=== PATIENT | male | born 1940 | race Caucasian/White ===

== ENCOUNTER → 2018-09-15 | Outpatient (CLI) | payer MEDICARE, BC ==
--- NOTE | 2018-09-15 13:34 | ECHOF ---
Referral Reason:I10 primary hypertension MEASUREMENTS -------- HEIGHT: 171.4 cm WEIGHT: 103.4 kg BP: 149/72 RVIDd: 2.9 cm (< 3.3) IVSd: 1.4 cm (0.6 - 1.1) LVIDd: 4.2 cm (3.9 - 5.3) LVPWd: 1.3 cm (0.6 - 1.1) IVSs: 1.6 cm LVIDs: 2.9 cm LVPWs: 1.6 cm LA Diam: 3.5 cm (2.7 - 3.8) LAESV Index (A-L): 20.41 ml/m Ao Diam: 3.2 cm (2.0 - 3.7) AV Cusp: 1.7 cm (1.5 - 2.6) MV EXCURSION: 15.271 mm (> 18.000) MV EF SLOPE: 65 mm/s (70 - 150) EPSS: 0.9 cm MV E Robin: 1.08 m/s MV DecT: 269 ms MV A Robin: 1.20 m/s MV E/A Ratio: 0.90 RAP: 5.00 mmHg RVSP: 29.84 mmHg FINDINGS -------- Sinus rhythm. This was a technically difficult study with suboptimal views. The left ventricular size is normal. There is moderate concentric left ventricular hypertrophy. O verall left ventricular systolic function is normal with, an EF between 55 - 60 %. The right ventricle is normal in size. Normal LA size by volume 22+/-6 ml/m2. The right atrium is normal in size. 3 ml of Lumason was utilized for enhancement of images. There is mild aortic valve sclerosis. Mild mitral annular calcification present. The tricuspid valve appears structurally normal. The pulmonic valve was not well visualized. The aortic root size is normal. Normal inferior vena cava with normal inspiratory collapse consistent with estimated right atrial pre ssure of 5 mmHg. There is no pericardial effusion. CONCLUSIONS -------- 1. Sinus rhythm. 2. This was a technically difficult study with suboptimal views. 3. The left ventricular size is normal. 4. There is moderate concentric left ventricular hypertrophy. 5. Overall left ventricular systolic function is normal with, an EF between 55 - 60 %. 6. The right ventricle is normal in size. 7. Normal LA size by volume 22+/-6 ml/m2. 8. The right atrium is normal in size. 9. 3 ml of Lumason was utilized for enhancement of images. 10. There is mild aortic valve sclerosis. 11. Mild mitral annular calcification present. 12. The tricuspid valve appears structurally normal. 13. The pulmonic valve was not well visualized. 14. The aortic root size is normal. 15. Normal inferior vena cava with normal inspiratory collapse consistent with estimated right atrial pressure of 5 mmHg. 16. There is no pericardial effusion. PEOPLE GREETER: Regina Telles RDCS
== END | disposition home or self-care (01) ==
LOC: RADECHMAIN 11:35
PROVIDERS: ATTEND Family Medicine
DX: I08.0 Rheumatic disorders of both mitral and aortic valves (principal); I10 Essential (primary) hypertension
CPT/HCPCS: C8929; Q9950; 93306

== ENCOUNTER → 2018-11-30 | Outpatient (CLI) | payer MEDICARE, BC ==
[2018-11-30 16:01] LABS: African American GFR (CKD) 74.1 (60.0-200.0); Albumin 4.2 g/dL (3.80-4.90); Albumin/Globulin Ratio 1.83 (1.60-3.17); Anion Gap 6.8 mmol/L (4.00-12.00); BUN/Creat Ratio 18.18 Ratio (12.00-20.00); Calcium 9.7 mg/dL (8.7-10.3); Carbon Dioxide 28.2 mmol/L (21.6-31.8); Globulin 2.3 g/dL (1.6-3.3); LDL Cholesterol,Calculated 123.6 mg/dL (0.0-131.0); Potassium 5.2 mmol/L (3.5-5.5); Total Bilirubin 0.9 mg/dL (0.3-1.2); Total Protein 6.5 g/dL (6.2-8.2); VLDL Calculation 24.4 mg/dL (5.00-40.00)
== END ==
LOC: LABWHC1 08:59
PROVIDERS: ATTEND Internal Medicine Interventional Cardiology
DX: E78.2 Mixed hyperlipidemia (principal)
CPT/HCPCS: 36415; 80053; 80061

== ENCOUNTER → 2019-02-15 | Outpatient (CLI) | payer MEDICARE, BC ==
[2019-02-15 17:04] LABS: Chol/HDL Ratio 3.21; LDL Cholesterol,Calculated 79.8 mg/dL (0.0-131.0); VLDL Calculation 24.2 mg/dL (5.00-40.00)
== END | disposition home or self-care (01) ==
LOC: LABWHC1 10:00
PROVIDERS: ATTEND Internal Medicine Interventional Cardiology
DX: E78.2 Mixed hyperlipidemia (principal)
CPT/HCPCS: 36415; 80061; 82550; 84450; 84460

== ENCOUNTER 2019-10-12 15:51 | Emergency (ER) | payer BC, MEDICARE ==
[2019-10-12 16:03] VITALS: PULSE 69; RESP 18; TEMP 98.6
--- NOTE | 2019-10-12 16:20 | ED ---
General Adult HPI - General Chief complaint: Recheck/Abnormal Lab/Rx Stated complaint: fever/lethargic/back pain Time Seen by Provider: 10/12/19 16:09 Source: patient Mode of arrival: ambulatory Limitations: no limitations - History of Present Illness Initial comments: Dictation was produced using [employer] dictation software. please excuse any gramma tical, word or spelling errors. This patient was cared for during a federal and state declared state of emergency secondary to Covid 19 Chief Complaint: 79-year-old male with past medical history of hypertension presents with generalized malaise History of Present Illness: 79-year-old male he called the primary care physician's office. B he was told that they aren't able to see him today. 3 weeks ago patient traveled via car back from [place]. Patient states he's been feeling rather weak. Cold days ago patient was pulling a bruits from a small tree when he hurt his back. He felt the pain the next day. Patient denies any history of abdominal aortic aneurysm. He has no urinary symptoms. No numbness and no paresthesias to the sacral area of the legs. Patient has been able to without complications. Patient states he does have some pain that feels like it's worse when he moves. Denies any constitutional symptoms however he checked essentially a sinus found to be 99. It was suggested to the patient that he come to the emergency department for coronal virus testing. As a chest pain shortness of breath. No cough. The ROS documented in this emergency department record has been reviewed and confirmed by me. Those systems with pertinent positive or negative responses have been documented in the HPI. All other systems are other negative and/or noncontributory. PHYSICAL EXAM: General Impression: Alert and oriented x3, not in acute distress HEENT: Normocephalic atraumatic, extra-ocular movements intact, pupils equal and reactive to light bilaterally, mucous membranes moist. Cardiovascular: Heart regular rate and rhythm Chest: Able to complete full sentences, no retractions, no tachypnea Abdomen: abdomen soft, non-tender, non-distended, no organomegaly, no palpable abdominal mass Musculoskeletal: Pulses present and equal in all extremities, no peripheral edema, mild tenderness to palpation over the left lower back Motor: no focal deficits noted Neurological: CN II-XII grossly intact, no focal motor or sensory deficits noted Skin: Intact with no visualized rashes Psych: Normal affect and mood ED course: 79-year-old male presents with acute lower back strain and generalized weakness. He is well-appearing at bedside. Patient and motor witho ut complications. Patient does not have any pulsatile abdominal mass. Upon arrival are within acceptable limits. Patient had recent travel to [place] were there has been increased number of coronavirus cases. Patient be tested. He understands that results are not available until 24-48 hours. Laboratory evaluation obtained. CBC, metabolic panel is unremarkable. C- reactive protein slightly elevated at 15.8. Patient given Lidoderm patch for lower back strain. Coronavirus test was ordered. Pending result. Patient reevaluated at bedside and found to be in stable medical condition. Patient will be discharged. He is told that his results should be complete and 24-48 hours. At that time he should receive a call. He does not receive a call his advised to call the emergency department for more information. - Related Data Allergies Allergy/AdvReac Type Severity Reaction Status Date / Time No Known Allergies Allergy Verified 10/12/19 16:02 Review of Systems ROS Statement: Those systems with pertinent positive or pertinent negative responses have been documented in the HPI. ROS Other: All systems not noted in ROS Statement are negative. Past Medical History Past Medical History: Hypertension Past Surgical History: No Surgical Hx Reported Past Psychological History: No Psychological Hx Reported Smoking Status: Never smoker Past Alcohol Use History: Occasional Past Drug Use History: None Reported General Exam Limitations: no limitations Course Vital Signs 10/12/19 15:59 Temperature 98.6 F Pulse Rate 69 Respiratory 18 Rate Blood Pressure 158/76 O2 Sat by Pulse 97 Oximetry Medical Decision Making - Lab Data Result diagrams: 10/12/19 16:34 10/12/19 16:34 Lab Results 10/12/19 10/12/19 Range/Units 16:34 16:34 WBC 8.6 (3.8-10.6) k/uL RBC 5.42 (4.30-5.90) m/uL Hgb 15.7 (13.0-17.5) gm/dL Hct 48.1 (39.0-53.0) % MCV 88.8 (80.0-100.0) fL MCH 29.0 (25.0-35.0) pg MCHC 32.7 (31.0-37.0) g/dL RDW 12.8 (11.5-15.5) % Plt Count 194 (150-450) k/uL Neutrophils % 66 % Lymphocytes % 20 % Monocytes % 9 % Eosinophils % 3 % Basophils % 0 % Neutrophils # 5.7 (1.3-7.7) k/uL Lymphocytes # 1.7 (1.0-4.8) k/uL Monocytes # 0.8 (0-1.0) k/uL Eosinophils # 0.2 (0-0.7) k/uL Basophils # 0.0 (0-0.2) k/uL Sodium 135 L (137-145) mmol/L Potassium 4.5 (3.5-5.1) mmol/L Chloride 101 (98-107) mmol/L Carbon Dioxide 26 (22-30) mmol/L Anion Gap 8 mmol/L BUN 17 (9-20) mg/dL Creatinine 1.02 (0.66-1.25) mg/dL Est GFR (CKD-EPI)AfAm 81 (>60 ml/min/1.73 sqM) Est GFR (CKD-EPI)NonAf 70 (>60 ml/min/1.73 sqM) Glucose 88 (74-99) mg/dL Calcium 9.8 (8.4-10.2) mg/dL Magnesium 1.9 (1.6-2.3) mg/dL C-Reactive Protein 15.8 H (<10.0) mg/L Disposition Clinical Impression: Fatigue Disposition: HOME SELF-CARE Condition: Good Instructions (If sedation given, give patient instructions): Fatigue (ED) Additional Instructions: Results for coronavirus that should be available in 24-48 hours. You should receive a call to be notified of the result however if you do not receive a call please call the emergency department for more information. Is patient prescribed a controlled substance at d/c from ED?: No Referrals: Fermin Pedro MD [Primary Care Provider] - 1-2 days Time of Disposition: 18:01
[2019-10-12 16:56] LABS: Basophils % (A) 0 %; Eosinophils # (A) 0.2 k/uL (0-0.7); Eosinophils % (A) 3 %; HCT 48.1 % (39.0-53.0); HGB 15.7 gm/dL (13.0-17.5); Lymphocytes # (A) 1.7 k/uL (1.0-4.8); Lymphocytes % (A) 20 %; MCHC 32.7 g/dL (31.0-37.0); MCV 88.8 fL (80.0-100.0); Mean Platelet Volume 7.9; Monocytes # (A) 0.8 k/uL (0-1.0); Monocytes % (A) 9 %; Neutrophils # (A) 5.7 k/uL (1.3-7.7); Neutrophils % (A) 66 %; Platelet Count 194 k/uL (150-450); RBC 5.42 m/uL (4.30-5.90); RDW 12.8 % (11.5-15.5); WBC 8.6 k/uL (3.8-10.6)
[2019-10-12 17:00] LABS: C Reactive Protein 15.8 mg/L (<10.0); Calcium 9.8 mg/dL (8.4-10.2); Magnesium 1.9 mg/dL (1.6-2.3)
[2019-10-12 17:04] LABS: Potassium 4.5 mmol/L (3.5-5.1)
[2019-10-12] MEDS ORDERED: LIDOCAINE 5% PATCH TOPICAL STA (17:43)
[2019-10-12 18:11] VITALS: BP 144/77
== END 2019-10-12 18:10 | disposition home or self-care (01) ==
LOC: EC 15:51
DX: R53.83 Other fatigue (principal); S39.012A Strain of muscle, fascia and tendon of lower back, initial encounter; R79.82 Elevated C-reactive protein (CRP); R53.1 Weakness; I10 Essential (primary) hypertension; R07.9 Chest pain, unspecified; R53.81 Other malaise; R06.02 Shortness of breath; Z20.828 Contact with and (suspected) exposure to other viral communicable diseases; X50.0XXA Overexertion from strenuous movement or load, initial encounter; Y93.89 Activity, other specified
CPT/HCPCS: 36415; 80048; 83735; 85025; 86140; 99284; U0003

== ENCOUNTER → 2021-04-27 | Outpatient (CLI) | payer MEDICARE ==
[2021-04-27 15:47] LABS: Chol/HDL Ratio 2.86 Ratio; LDL Cholesterol,Calculated 92.8 mg/dL (0.0-131.0)
[2021-04-27 15:55] LABS: ALT 26 U/L (10-49); AST 30 U/L (14-35); African American GFR (CKD) 56.7 (60.0-200.0); Albumin 4.5 g/dL (3.8-4.9); Albumin/Globulin Ratio 1.52 (1.60-3.17); Alkaline Phosphatase 97 U/L (41-126); BUN/Creat Ratio 23.26 Ratio (12.00-20.00); Blood Urea Nitrogen 31.4 mg/dL (9.0-27.0); Calcium 10.4 mg/dL (8.7-10.3); Carbon Dioxide 25.7 mmol/L (20.0-27.5); Chloride 98 mmol/L (96-109); Glucose 118 mg/dL (70-110); Non-African American GFR(CKD) 48.9 (60.0-200.0); Sodium 138 mmol/L (135-145); Total Protein 7.4 g/dL (6.2-8.2)
== END | disposition home or self-care (01) ==
LOC: LABWHC1 09:49
PROVIDERS: ATTEND Internal Medicine Interventional Cardiology
DX: E78.2 Mixed hyperlipidemia (principal); R60.0 Localized edema
CPT/HCPCS: 36415; 80053; 80061; 83880

== ENCOUNTER 2021-11-11 15:09 | Inpatient (IN) | payer MEDICARE ==
[2021-11-11] MEDS ORDERED: SODIUM CHLORIDE 0.9% 1,000 ML IV STA ×3 (16:04→18:52)
[2021-11-11] MEDS ORDERED: ONDANSETRON 4 MG/2 ML VIAL IVP STA ×2 (16:04→20:59)
--- NOTE | 2021-11-11 16:19 | ED ---
Weakness HPI - General Chief complaint: Weakness Stated complaint: Weakness,SOB,Dizzy Time Seen by Provider: 11/11/21 15:17 Source: patient, EMS Mode of arrival: EMS Limitations: no limitations - History of Present Illness Initial comments: This 81-year-old male presents with a complaint of weakness. He also has had a cough as well as some nausea and vomiting. He states that over the last day he has had multiple episodes of nausea and vomiting. He's been unable to hold down much fluid and no food for the last week. He states that he gets weak and dizzy when he sits up, stands up or walks. He has occasional shortness of breath as well but denies chest pain. Patient denies any definite fever but said that he felt somewhat hot earlier today. He does have a somewhat moderately complicated recent past medical history. He apparently went through chemotherapy for bladder cancer 6 months ago and has not been completely back to normal since. He developed some right leg swelling over the past several months and was diagnosed with a large right leg DVT and pulmonary embolisms. He is on Eliquis for blood thinners currently. He then developed COVID-19 approximately 2 weeks ago and he was hospitalized in the hospital in [place]. He was discharged one week ago. He denies any current chest pain. Upon walking in the room he went from lying to sitting position and got very dizzy and almost passed out. No other complaints or modifying factors. He denies any urinary symptoms. - Related Data Home Medications Medication Instructions Recorded Confirmed Apixaban [Eliquis] 5 mg PO BID 11/11/21 11/11/21 Atorvastatin Calcium [Lipitor] 40 mg PO DAILY 11/11/21 11/11/21 Dutasteride 0.5 mg PO DAILY 11/11/21 11/11/21 Finasteride [Proscar] 5 mg PO DAILY 11/11/21 11/11/21 Glucosam/Yoav-Msm1/C/Alan/Bosw 1 tab PO DAILY 11/11/21 11/11/21 [Glucosamine-Chondroitin Tablet] Ibuprofen [Motrin] 800 mg PO Q8H PRN 11/11/21 11/11/21 Olopatadine HCl [Pataday Once 1 drop BOTH EYES BID 11/11/21 11/11/21 Daily Relief] Ondansetron [Zofran] 4 mg PO TID PRN 11/11/21 11/11/21 Sildenafil Citrate 100 mg PO DAILY PRN 11/11/21 11/11/21 Tamsulosin [Flomax] 0.4 mg PO DAILY 11/11/21 11/11/21 Testosterone Cypionate 200 mg IM Q30D 11/11/21 11/11/21 [Depo-Testosterone] hydroCHLOROthiazide [Hydrodiuril] 12.5 mg PO DAILY 11/11/21 11/11/21 lisinopriL [Zestril] 2.5 mg PO DAILY 11/11/21 11/11/21 Allergies Allergy/AdvReac Type Severity Reaction Status Date / Time No Known Allergies Allergy Verified 11/11/21 18:06 Review of Systems ROS Statement: Those systems with pertinent positive or pertinent negative responses have been documented in the HPI. ROS Other: All systems not noted in ROS Statement are negative. Past Medical History Past Medical History: Cancer, Hypertension Additional Past Medical History / Comment(s): kidney stones, tonsillectomy, bladder cancer Past Surgical History: No Surgical Hx Reported Past Psychological History: No Psychological Hx Reported Smoking Status: Former smoker Past Alcohol Use History: Rare Past Drug Use History: None Reported General Exam - General Exam Comments Initial Comments: GENERAL: The patient is well nourished and mildly dehydrated. VITAL SIGNS: Heart rate, blood pressure, respiratory rate reviewed as recorded in nurse's notes. EYES: Pupils are round and reactive. Extraocular movements are intact. No conjunctival / lid redness or swelling. ENT: No external evidence of injury, swelling, or ecchymosis. Airway is patent. Throat is clear. Mucous membranes are dry. NECK: Nontender. No swelling or evidence of injury. No subcutaneous emphysema. Trachea is midline. No thyroid mass. HEART: Regular rate and rhythm. Good peripheral pulses. LUNGS/CHEST: Breath sounds clear and equal bilaterally. No rales, rhonchi, or wheezes. No ecchymosis, subcutaneous emphysema, or tenderness. ABDOMEN: Abdomen soft without tenderness. No palpable masses or organomegaly. No peritoneal signs. No abdominal wall swelling or ecchymosis. EXTREMITIES: No extremity tenderness. Normal muscle tone and function. No thoracolumbar tenderness. There is significant right leg/calf swelling which apparently is improved as compared to previous per patient and . NEUROLOGIC: Sensation is grossly intact. Cranial nerve exam reveals face is symmetrical, tongue is midline, speech is clear. SKIN: No abrasions or ecchymosis is noted. No induration or masses noted. PSYCHIATRIC: Alert and oriented. Appropriate behavior and judgment. Limitations: no limitations Course Vital Signs 11/11/21 11/11/21 11/11/21 15:16 16:00 16:30 Temperature 97.4 F L Pulse Rate 126 H 112 H 114 H Respiratory 20 18 Rate Blood Pressure 108/57 96/60 97/54 O2 Sat by Pulse 96 94 L 95 Oximetry 11/11/21 11/11/21 11/11/21 17:00 17:30 18:00 Temperature Pulse Rate 110 H 105 H 112 H Respiratory Rate Blood Pressure 88/53 99/57 94/48 O2 Sat by Pulse 94 L 96 96 Oximetry 11/11/21 11/11/21 18:30 19:00 Temperature 97.6 F Pulse Rate 103 H 106 H Respiratory 20 Rate Blood Pressure 77/55 125/71 O2 Sat by Pulse 96 99 Oximetry Medical Decision Making - Medical Decision Making The patient was seen and examined. All diagnostics are reviewed. He is placed on a panel monitor and some mild regular tachycardia is noted. The EKG shows a sinus tachycardia at a rate of 109. There is no acute ST-T wave changes identified. The [place] intervals 134, QRS duration is 84, and the QTc interval is 375. An IV is started and he is hydrated. He had the spell in the room when I first walked in 1 and he went from lying to sitting. He got very dizzy and almost passed out. His eyes apparently rolled back into his head and he is very weak. His was holding him up. He was laid back down to the bed and se emed to recover quite well. His blood pressure was 96 systolic directly after this event. He is given Zofran 4 mg IV. There is later given additional fluids. His blood pressure is much improved on multiple rechecks. The patient later complains of additional nausea and is given additional 4 mg of Zofran. Laboratory shows white blood cell count elevated, mild anemia, mild hyponatremia, elevated troponin, mild elevation of lactic acid. His repeat Covid test came back positive once again. The patient appears twice a day #12 of Covid. It is felt overall that his symptomatology likely could be related to dehydration and orthostatic hypotension. He states that he has very little to eat or drink in the past week. He is feeling much improved with IV fluids. The exact cause of the leukocytosis is not definitively determined. An x-ray of the chest does not show any acute processes. The patient also had a CTA of the chest and no further pulmonary embolisms are identified. There is no evidence of infiltrates. He also had a urinalysis which does not show any evidence of infection. - Lab Data Result diagrams: 11/11/21 17:32 11/11/21 17:32 Lab Results 11/11/21 11/11/21 11/11/21 Range/Units 17:00 17:00 17:00 WBC (3.8-10.6) k/uL RBC (4.30-5.90) m/uL Hgb (13.0-17.5) gm/dL Hct (39.0-53.0) % MCV (80.0-100.0) fL MCH (25.0-35.0) pg MCHC (31.0-37.0) g/dL RDW (11.5-15.5) % Plt Count (150-450) k/uL MPV Neutrophils % % Lymphocytes % % Monocytes % % Eosinophils % % Basophils % % Neutrophils # (1.3-7.7) k/uL Lymphocytes # (1.0-4.8) k/uL Monocytes # (0-1.0) k/uL Eosinophils # (0-0.7) k/uL Basophils # (0-0.2) k/uL PT (9.0-12.0) sec INR (<1.2) APTT (22.0-30.0) sec Sodium (137-145) mmol/L Potassium (3.5-5.1) mmol/L Chloride (98-107) mmol/L Carbon Dioxide (22-30) mmol/L Anion Gap mmol/L BUN (9-20) mg/dL Creatinine (0.66-1.25) mg/dL Est GFR (CKD-EPI)AfAm (>60 ml/min/1.73 sqM) Est GFR (CKD-EPI)NonAf (>60 ml/min/1.73 sqM) Glucose (74-99) mg/dL Lactic Ac Sepsis Rflx Plasma Lactic Acid [place] (0.7-2.0) mmol/L Calcium (8.4-10.2) mg/dL Phosphorus (2.5-4.5) mg/dL Magnesium (1.6-2.3) mg/dL Total Bilirubin (0.2-1.3) mg/dL AST (17-59) U/L ALT (4-49) U/L Alkaline Phosphatase (38-126) U/L Troponin I (0.000-0.034) ng/mL NT-Pro-B Natriuret Pep pg/mL Total Protein (6.3-8.2) g/dL Albumin (3.5-5.0) g/dL Urine Color Yellow Urine Appearance Clear (Clear) Urine pH 5.5 (5.0-8.0) Ur Specific [place] 1.022 (1.001-1.035) Urine Protein Negative (Negative) Urine Glucose (UA) Negative (Negative) Urine Ketones Trace H (Negative) Urine Blood Trace H (Negative) Urine Nitrite Negative (Negative) Urine Bilirubin Negative (Negative) Urine Urobilinogen <2.0 (<2.0) mg/dL Ur Leukocyte Esterase Trace H (Negative) Urine RBC 2 (0-5) /hpf Urine WBC 4 (0-5) /hpf Urine Mucus Rare H (None) /hpf Coronavirus (PCR) Detected A (Not Detectd) Influenza Type A RNA Not Detected (Not Detectd) Influenza Type B (PCR) Not Detected (Not Detectd) 11/11/21 11/11/21 11/11/21 Range/Units 17:32 17:32 17:32 WBC 20.1 H (3.8-10.6) k/uL RBC 4.39 (4.30-5.90) m/uL Hgb 12.4 L (13.0-17.5) gm/dL Hct 39.1 (39.0-53.0) % MCV 89.1 (80.0-100.0) fL MCH 28.2 (25.0-35.0) pg MCHC 31.7 (31.0-37.0) g/dL RDW 14.0 (11.5-15.5) % Plt Count 215 (150-450) k/uL MPV 8.7 Neutrophils % 88 % Lymphocytes % 5 % Monocytes % 5 % Eosinophils % 0 % Basophils % 0 % Neutrophils # 17.7 H (1.3-7.7) k/uL Lymphocytes # 1.1 (1.0-4.8) k/uL Monocytes # 1.0 (0-1.0) k/uL Eosinophils # 0.1 (0-0.7) k/uL Basophils # 0.0 (0-0.2) k/uL PT 11.8 (9.0-12.0) sec INR 1.1 (<1.2) APTT 29.0 (22.0-30.0) sec Sodium 131 L (137-145) mmol/L Potassium 4.5 (3.5-5.1) mmol/L Chloride 102 (98-107) mmol/L Carbon Dioxide 21 L (22-30) mmol/L Anion Gap 8 mmol/L BUN 71 H (9-20) mg/dL Creatinine 1.21 (0.66-1.25) mg/dL Est GFR (CKD-EPI)AfAm 65 (>60 ml/min/1.73 sqM) Est GFR (CKD-EPI)NonAf 56 (>60 ml/min/1.73 sqM) Glucose 117 H (74-99) mg/dL Lactic Ac Sepsis Rflx Plasma Lactic Acid [place] (0.7-2.0) mmol/L Calcium 8.4 (8.4-10.2) mg/dL Phosphorus 3.3 (2.5-4.5) mg/dL Magnesium 1.8 (1.6-2.3) mg/dL Total Bilirubin 0.9 (0.2-1.3) mg/dL AST 21 (17-59) U/L ALT 22 (4-49) U/L Alkaline Phosphatase 57 (38-126) U/L Troponin I (0.000-0.034) ng/mL NT-Pro-B Natriuret Pep pg/mL Total Protein 5.3 L (6.3-8.2) g/dL Albumin 2.9 L (3.5-5.0) g/dL Urine Color Urine Appearance (Clear) Urine pH (5.0-8.0) Ur Specific [place] (1.001-1.035) Urine Protein (Negative) Urine Glucose (UA) (Negative) Urine Ketones (Negative) Urine Blood (Negative) Urine Nitrite (Negative) Urine Bilirubin (Negative) Urine Urobilinogen (<2.0) mg/dL Ur Leukocyte Esterase (Negative) Urine RBC (0-5) /hpf Urine WBC (0-5) /hpf Urine Mucus (None) /hpf Coronavirus (PCR) (Not Detectd) Influenza Type A RNA (Not Detectd) Influenza Type B (PCR) (Not Detectd) 11/11/21 11/11/21 11/11/21 Range/Units 17:32 17:32 17:32 WBC (3.8-10.6) k/uL RBC (4.30-5.90) m/uL Hgb (13.0-17.5) gm/dL Hct (39.0-53.0) % MCV (80.0-100.0) fL MCH (25.0-35.0) pg MCHC (31.0-37.0) g/dL RDW (11.5-15.5) % Plt Count (150-450) k/uL MPV Neutrophils % % Lymphocytes % % Monocytes % % Eosinophils % % Basophils % % Neutrophils # (1.3-7.7) k/uL Lymphocytes # (1.0-4.8) k/uL Monocytes # (0-1.0) k/uL Eosinophils # (0-0.7) k/uL Basophils # (0-0.2) k/uL PT (9.0-12.0) sec INR (<1.2) APTT (22.0-30.0) sec Sodium (137-145) mmol/L Potassium (3.5-5.1) mmol/L Chloride (98-107) mmol/L Carbon Dioxide (22-30) mmol/L Anion Gap mmol/L BUN (9-20) mg/dL Creatinine (0.66-1.25) mg/dL Est GFR (CKD-EPI)AfAm (>60 ml/min/1.73 sqM) Est GFR (CKD-EPI)NonAf (>60 ml/min/1.73 sqM) Glucose (74-99) mg/dL Lactic Ac Sepsis Rflx Plasma Lactic Acid [place] 2.2 H* (0.7-2.0) mmol/L Calcium (8.4-10.2) mg/dL Phosphorus (2.5-4.5) mg/dL Magnesium (1.6-2.3) mg/dL Total Bilirubin (0.2-1.3) mg/dL AST (17-59) U/L ALT (4-49) U/L Alkaline Phosphatase (38-126) U/L Troponin I 0.046 H* (0.000-0.034) ng/mL NT-Pro-B Natriuret Pep 560 pg/mL Total Protein (6.3-8.2) g/dL Albumin (3.5-5.0) g/dL Urine Color Urine Appearance (Clear) Urine pH (5.0-8.0) Ur Specific [place] (1.001-1.035) Urine Protein (Negative) Urine Glucose (UA) (Negative) Urine Ketones (Negative) Urine Blood (Negative) Urine Nitrite (Negative) Urine Bilirubin (Negative) Urine Urobilinogen (<2.0) mg/dL Ur Leukocyte Esterase (Negative) Urine RBC (0-5) /hpf Urine WBC (0-5) /hpf Urine Mucus (None) /hpf Coronavirus (PCR) (Not Detectd) Influenza Type A RNA (Not Detectd) Influenza Type B (PCR) (Not Detectd) 11/11/21 Range/Units 18:07 WBC (3.8-10.6) k/uL RBC (4.30-5.90) m/uL Hgb (13.0-17.5) gm/dL Hct (39.0-53.0) % MCV (80.0-100.0) fL MCH (25.0-35.0) pg MCHC (31.0-37.0) g/dL RDW (11.5-15.5) % Plt Count (150-450) k/uL MPV Neutrophils % % Lymphocytes % % Monocytes % % Eosinophils % % Basophils % % Neutrophils # (1.3-7.7) k/uL Lymphocytes # (1.0-4.8) k/uL Monocytes # (0-1.0) k/uL Eosinophils # (0-0.7) k/uL Basophils # (0-0.2) k/uL PT (9.0-12.0) sec INR (<1.2) APTT (22.0-30.0) sec Sodium (137-145) mmol/L Potassium (3.5-5.1) mmol/L Chloride (98-107) mmol/L Carbon Dioxide (22-30) mmol/L Anion Gap mmol/L BUN (9-20) mg/dL Creatinine (0.66-1.25) mg/dL Est GFR (CKD-EPI)AfAm (>60 ml/min/1.73 sqM) Est GFR (CKD-EPI)NonAf (>60 ml/min/1.73 sqM) Glucose (74-99) mg/dL Lactic Ac Sepsis Rflx Y Plasma Lactic Acid [place] (0.7-2.0) mmol/L Calcium (8.4-10.2) mg/dL Phosphorus (2.5-4.5) mg/dL Magnesium (1.6-2.3) mg/dL Total Bilirubin (0.2-1.3) mg/dL AST (17-59) U/L ALT (4-49) U/L Alkaline Phosphatase (38-126) U/L Troponin I (0.000-0.034) ng/mL NT-Pro-B Natriuret Pep pg/mL Total Protein (6.3-8.2) g/dL Albumin (3.5-5.0) g/dL Urine Color Urine Appearance (Clear) Urine pH (5.0-8.0) Ur Specific [place] (1.001-1.035) Urine Protein (Negative) Urine Glucose (UA) (Negative) Urine Ketones (Negative) Urine Blood (Negative) Urine Nitrite (Negative) Urine Bilirubin (Negative) Urine Urobilinogen (<2.0) mg/dL Ur Leukocyte Esterase (Negative) Urine RBC (0-5) /hpf Urine WBC (0-5) /hpf Urine Mucus (None) /hpf Coronavirus (PCR) (Not Detectd) Influenza Type A RNA (Not Detectd) Influenza Type B (PCR) (Not Detectd) Disposition Clinical Impression: Hypotension, Orthostatic hypotension, Dehydration, COVID-19, Leukocytosis, Hyponatremia, History of DVT (deep vein thrombosis), Lactic acidosis, Sinus tachycardia Disposition: ADMITTED IP TO THIS HOSP Condition: Fair Is patient prescribed a controlled substance at d/c from ED?: No Referrals: Fermin Pedro MD [Primary Care Provider] - 1-2 days Time of Disposition: 21:07 Decision Date: 11/11/21 Decision Time: 21:07
[2021-11-11] MEDS ORDERED: BACITRACIN OINT 1 EACH PACKET TOPICAL ONE (16:35)
[2021-11-11 17:32] LABS: Appearance,Urine Clear (Clear); Bilirubin,Urine Negative (Negative); Blood,Urine Trace (Negative); Color,Urine Yellow; Glucose,Urine (UA) Negative (Negative); Ketones,Urine Trace (Negative); Leukocyte Esterase,Urine Trace (Negative); Mucus,Urine Rare /hpf; Nitrite,Urine Negative (Negative); PH, Urine 5.5 (5.0-8.0); Protein,Urine Negative (Negative); RBC,Urine 2 /hpf (0-5); Specific Gravity,Urine 1.022 (1.001-1.035); Urobilinogen,Urine <2.0 mg/dL (<2.0); WBC,Urine 4 /hpf (0-5)
--- NOTE | 2021-11-11 17:33 | XR ---
EXAMINATION TYPE: XR chest 2V DATE OF EXAM: 11/11/2021 5:21 PM COMPARISON: None TECHNIQUE: XR chest 2V Frontal and lateral views of the chest. CLINICAL INDICATION:Male, 81 years old with history of Weakness; FINDINGS: Lungs/Pleura: There is no evidence of pleural effusion, focal consolidation, or pneumothorax. Pulmonary vascularity: Unremarkable. Heart/mediastinum: Cardiomediastinal silhouette is unremarkable. Musculoskeletal: No acute osseous pathology. IMPRESSION: No acute cardiopulmonary disease/process.
[2021-11-11 17:44] LABS: Basophils % (A) 0 %; Eosinophils # (A) 0.1 k/uL (0-0.7); Eosinophils % (A) 0 %; HCT 39.1 % (39.0-53.0); HGB 12.4 gm/dL (13.0-17.5); Lymphocytes # (A) 1.1 k/uL (1.0-4.8); Lymphocytes % (A) 5 %; MCH 28.2 pg (25.0-35.0); MCHC 31.7 g/dL (31.0-37.0); MCV 89.1 fL (80.0-100.0); Mean Platelet Volume 8.7; Monocytes % (A) 5 %; Neutrophils # (A) 17.7 k/uL (1.3-7.7); Neutrophils % (A) 88 %; Platelet Count 215 k/uL (150-450); RBC 4.39 m/uL (4.30-5.90); WBC 20.1 k/uL (3.8-10.6)
[2021-11-11 17:55] LABS: Albumin 2.9 g/dL (3.5-5.0); Calcium 8.4 mg/dL (8.4-10.2); Magnesium 1.8 mg/dL (1.6-2.3); Phosphorus 3.3 mg/dL (2.5-4.5); Potassium 4.5 mmol/L (3.5-5.1); Total Bilirubin 0.9 mg/dL (0.2-1.3); Total Protein 5.3 g/dL (6.3-8.2)
[2021-11-11 18:00] LABS: INR 1.1 (<1.2); Prothrombin Time 11.8 sec (9.0-12.0)
--- NOTE | 2021-11-11 20:35 | CT ---
EXAMINATION TYPE: CT angio chest CT DLP: 549.3 mGycm, Automated exposure control for dose reduction was used. DATE OF EXAM: 11/11/2021 8:08 PM COMPARISON: Chest radiograph from same day. CLINICAL INDICATION:Male, 81 years old with history of hypotension, sob; TECHNIQUE/CONTRAST: CTA scan of the thorax is performed with IV Contrast, patient injected with 100 mL of Isovue 370, pul monary embolism protocol. MIP images are created and reviewed. FINDINGS: Pulmonary Artery: There is no evidence for a filling defect within the pulmonary vasculature to sugge st acute pulmonary embolism. The pulmonary artery is of normal size. Lungs/Pleura: Centrilobular emphysema changes. No evidence of focal consolidation, pleural effusion o r pneumothorax. Airway: Large airways are patent. Heart: Heart is within normal limits for size.. Vasculature: No evidence of aortic aneurysm. Mediastinum: No gross evidence of adenopathy. Musculoskeletal: No acute osseous abnormalities Soft Tissues: Unremarkable. Lower neck: No significant findings. Upper Abdomen: Probable splenic cyst versus hemangioma. Right renal cyst. IMPRESSION: 1. No evidence of pulmonary embolism. 2. COPD.
[2021-11-11] MEDS ORDERED: LORazepam 2 MG/ML INJ IV STA (20:59)
[2021-11-11] MEDS ORDERED: ALPRAZolam 0.25 MG TAB PO PRN (21:09)
[2021-11-11] MEDS ORDERED: ONDANSETRON 4 MG/2 ML VIAL IVP PRN (21:09)
[2021-11-11] MEDS ORDERED: ACETAMINOPHEN TAB 325 MG TAB PO PRN (21:09)
[2021-11-11] MEDS ORDERED: NON FORMULARY DRUG (Sildenafil Citrate [Sildenafil Citrate] 100 MG Tablet) PO PRN (21:15)
[2021-11-11] MEDS ORDERED: TESTOSTERONE CYPIONATE 200 MG/ML 1ML VIAL IM SCH (21:15)
[2021-11-12 05:34] LABS: Basophils % (A) 0 %; Eosinophils % (A) 0 %; HCT 28.6 % (39.0-53.0); Lymphocytes # (A) 1.7 k/uL (1.0-4.8); Lymphocytes % (A) 9 %; MCH 29.8 pg (25.0-35.0); MCHC 33.3 g/dL (31.0-37.0); MCV 89.3 fL (80.0-100.0); Mean Platelet Volume 8.4; Monocytes # (A) 0.9 k/uL (0-1.0); Monocytes % (A) 5 %; Neutrophils % (A) 85 %; Platelet Count 169 k/uL (150-450); RDW 14.5 % (11.5-15.5); WBC 18.8 k/uL (3.8-10.6)
[2021-11-12 05:35] LABS: HGB 9.5 gm/dL (13.0-17.5)
[2021-11-12 05:38] LABS: Albumin 2.3 g/dL (3.5-5.0); Calcium 7.5 mg/dL (8.4-10.2); Total Bilirubin 0.7 mg/dL (0.2-1.3); Total Protein 4.4 g/dL (6.3-8.2)
[2021-11-12] MEDS ORDERED: SODIUM CHLORIDE 0.9% 1,000 ML IV ONE ×2 (06:12→16:00)
[2021-11-12 06:45] LABS: Glucose,Whole Blood 117 mg/dL (70-110)
[2021-11-12] MEDS ORDERED: NALOXONE 0.4 MG/ML 1 ML VIAL IV PRN (07:01)
[2021-11-12 08:13] LABS: Calcium 7.5 mg/dL (8.4-10.2); Magnesium 1.8 mg/dL (1.6-2.3); Potassium 3.9 mmol/L (3.5-5.1)
[2021-11-12 08:17] LABS: Basophils % (A) 0 %; Eosinophils # (A) 0.1 k/uL (0-0.7); Eosinophils % (A) 0 %; HCT 27.9 % (39.0-53.0); HGB 9.1 gm/dL (13.0-17.5); Hypochromasia Slight; Lymphocytes # (A) 1.1 k/uL (1.0-4.8); Lymphocytes % (A) 6 %; MCH 29.7 pg (25.0-35.0); MCHC 32.6 g/dL (31.0-37.0); MCV 91.1 fL (80.0-100.0); Mean Platelet Volume 9.7; Monocytes # (A) 0.9 k/uL (0-1.0); Monocytes % (A) 5 %; Neutrophils # (A) 15.8 k/uL (1.3-7.7); Neutrophils % (A) 88 %; RBC 3.07 m/uL (4.30-5.90); WBC 17.9 k/uL (3.8-10.6)
--- NOTE | 2021-11-12 08:22 | P.GSCN ---
History of Present Illness Consult date: 11/12/21 History of present illness: REASON FOR CONSULTATION: GI bleed HISTORY OF PRESENT ILLNESS: The patient is a 81 year old male who presents with a complicated medical surgical history including bladder cancer undergoing chemotherapy, recent DVT with pulmonary embolism and recent COVID-19 infection less than 2 weeks. Patient was hospitalized in [place] 2 weeks ago. Yesterday, he presented to the emergency room with generalized weakness, nausea and vomiting. On admission hemoglobin was 12.5 mg/dL. He is on blood thinner Eliquis for recent DVT and pulmonary embolism. During hospitalization, patient had at least 3 dark bloody bowel movements with hypotension and tachycardia. He was transferred to the intensive care unit. Gen. surgery is consulted for GI bl eed. On review of his medical reconciliation, patient is on both blood thinner Eliquis and Motrin 800 mg. Patient was transferred from the floor to intensive care unit for monitoring of acute bleed. PAST MEDICAL HISTORY: See list and reviewed PAST SURGICAL HISTORY: See list and reviewed MEDICATIONS: See list and reviewed ALLERGIES: See list and reviewed SOCIAL HISTORY: See list and reviewed FAMILY HISTORY: See list and reviewed REVIEW OF ORGAN SYSTEMS: CONSTITUTIONAL: No fevers or chills. EYES: Denies any trouble with vision. HEENT: No difficulties with hearing. No nosebleeds. No difficulty swallowing. RESPIRATORY: Has recent COVID-19 infection. Recent pulmonary embolism on blood thinners. CARDIOVASCULAR: Denies any chest pain, palpitations, or recent heart attacks. Has hyperlipidemia. Has atrial fibrillation. Has hypertensive heart disease. GASTROINTESTINAL: Recent nausea vomiting abdominal pain. GENITOURINARY: Has bladder cancer undergoing chemoradiation. NEUROLOGICAL: Denies any numbness or tingling along the distal extremities. No seizure disorders or headaches. MUSCULOSKELETAL: Has back pain, stiffness or joint arthritis. SKIN: No current skin cancer. No rash. PSYCHIATRIC: Denies current depression or suicidal thoughts. ENDOCRINE: Denies current thyroid disorders. Denies any blood sugar glucose intolerance. HEME/LYMPHATIC: Denies any lumps and bumps around the neck. No recent deep venous thrombosis. ALLERGY/IMMUNOLOGY: No immunoglobulin therapy. No immune deficiencies. BREAST: Denies current breast lumps, pain or nipple discharge. PHYSICAL EXAM: VITALS: Reviewed CONSTITUTIONAL: Well developed and in no acute distress. EYES: Conjuctivae without sclera icterus. Extraocular movements grossly intact. HEAD, EARS, NOSE, THROAT: Moist buccal mucosa. Head is atraumatic, normocephalic. Hears conversational speech. No nasal drainage. NECK: Supple. No JV distention. No thyroidomegaly. RESPIRATORY: Non-labored respirations and equal bilateral excursions. CARDIOVASCULAR: Palpable 2+ radial pulses. ABDOMEN: No peritonitis. LYMPH: No neck lymphadenopathy. MUSCULOSKELETAL: No clubbing cyanosis. SKIN: Warm and well perfused with good skin turgor. NEUROLOGIC: Cranial nerves II through XII grossly intact. No focal or laterali zing signs. PSYCH: Appropriate affect. Alert and oriented to person, place and time. CLINCAL LABS: Reviewed. WBC on admission over 20,000. Hemoglobin on admission 12.4. Creatinine elevated 1.2. Hemoglobin today down to 9.5. Troponins demonstrates elevation from 0.04-0.156 RADIOLOGY: Report reviewed CT angiogram for pulmonary embolism demonstrates no pulmonary embolism with presence of chronic obstructive pulmonary disease. ASSESSMENT: 1. Gastrointestinal bleeding with hypotension 2. Recent pulmonary embolism and deep venous thrombosis on anticoagulation 3. Bladder cancer undergoing chemoradiation 4. COVID-19 infection 5. Elevated troponin for myocardial event PLAN: 1. Overall, he has suspected GI bleed due to gastric ulcer with NSAID induced gastropathy. 2. Recommend NPO for 24 to 48 hrs prior to start of clear liquid diet. 3. Hold blood thinners. 4. Endoscopy on hold due to active persistent elevation in troponin for suspected myocardial event 5. At bedside, patient undergoing echocardiogram. Will need cardiac clearance prior to endoscopic procedures. ADVANCE DIRECTIVE: Thank you for this kind consultation. Past Medical History Past Medical History: Cancer, Hypertension Additional Past Medical History / Comment(s): kidney stones, tonsillectomy, bladder cancer History of Any Multi-Drug Resistant Organisms: None Reported Past Surgical History: No Surgical Hx Reported Past Anesthesia/Blood Transfusion Reactions: No Reported Reaction Smoking Status: Former smoker - Past Family History Father Family Medical History: Cancer Additional Family Medical History / Comment(s): colon cancer Brother(s) Family Medical History: Cancer Sister(s) Family Medical History: Cancer Medications and Allergies Home Medications Medication Instructions Recorded Confirmed Type Apixaban [Eliquis] 5 mg PO BID 11/11/21 11/11/21 History Atorvastatin Calcium [Lipitor] 40 mg PO DAILY 11/11/21 11/11/21 History Dutasteride 0.5 mg PO DAILY 11/11/21 11/11/21 History Glucosam/Yoav-Msm1/C/Alan/Bosw 1 tab PO DAILY 11/11/21 11/11/21 History [Glucosamine-Chondroitin Tablet] Ibuprofen [Motrin] 800 mg PO Q8H PRN 11/11/21 11/11/21 History Olopatadine HCl [Pataday Once 1 drop BOTH EYES BID 11/11/21 11/11/21 History Daily Relief] Ondansetron [Zofran] 4 mg PO TID PRN 11/11/21 11/11/21 History Sildenafil Citrate 100 mg PO DAILY PRN 11/11/21 11/11/21 History Tamsulosin [Flomax] 0.4 mg PO DAILY 11/11/21 11/11/21 History Testosterone Cypionate 200 mg IM Q30D 11/11/21 11/11/21 History [Depo-Testosterone] hydroCHLOROthiazide [Hydrodiuril] 12.5 mg PO DAILY 11/11/21 11/11/21 History lisinopriL [Zestril] 2.5 mg PO DAILY 11/11/21 11/11/21 History Allergies Allergy/AdvReac Type Severity Reaction Status Date / Time No Known Allergies Allergy Verified 11/11/21 18:06 Surgical - Exam Vital Signs Temp Pulse Resp BP Pulse Ox 97.4 F L 126 H 20 108/57 96 11/11/21 15:16 11/11/21 15:16 11/11/21 15:16 11/11/21 15:16 11/11/21 15:16 Results - Labs 11/12/21 16:00 11/12/21 07:45 Abnormal Lab Results - Last 24 Hours (Table) 11/11/21 11/11/21 11/11/21 Range/Units 17:00 17:00 17:32 WBC 20.1 H (3.8-10.6) k/uL RBC (4.30-5.90) m/uL Hgb 12.4 L (13.0-17.5) gm/dL Hct (39.0-53.0) % Neutrophils # 17.7 H (1.3-7.7) k/uL Sodium (137-145) mmol/L Carbon Dioxide (22-30) mmol/L BUN (9-20) mg/dL Glucose (74-99) mg/dL POC Glucose (mg/dL) (70-110) mg/dL Plasma Lactic Acid Tunde (0.7-2.0) mmol/L Calcium (8.4-10.2) mg/dL Alkaline Phosphatase (38-126) U/L Troponin I (0.000-0.034) ng/mL Total Protein (6.3-8.2) g/dL Albumin (3.5-5.0) g/dL Urine Ketones Trace H (Negative) Urine Blood Trace H (Negative) Ur Leukocyte Esterase Trace H (Negative) Urine Mucus Rare H (None) /hpf Coronavirus (PCR) Detected A (Not Detectd) 11/11/21 11/11/21 11/11/21 Range/Units 17:32 17:32 17:32 WBC (3.8-10.6) k/uL RBC (4.30-5.90) m/uL Hgb (13.0-17.5) gm/dL Hct (39.0-53.0) % Neutrophils # (1.3-7.7) k/uL Sodium 131 L (137-145) mmol/L Carbon Dioxide 21 L (22-30) mmol/L BUN 71 H (9-20) mg/dL Glucose 117 H (74-99) mg/dL POC Glucose (mg/dL) (70-110) mg/dL Plasma Lactic Acid Tunde 2.2 H* (0.7-2.0) mmol/L Calcium (8.4-10.2) mg/dL Alkaline Phosphatase (38-126) U/L Troponin I 0.046 H* (0.000-0.034) ng/mL Total Protein 5.3 L (6.3-8.2) g/dL Albumin 2.9 L (3.5-5.0) g/dL Urine Ketones (Negative) Urine Blood (Negative) Ur Leukocyte Esterase (Negative) Urine Mucus (None) /hpf Coronavirus (PCR) (Not Detectd) 11/11/21 11/12/21 11/12/21 Range/Units 22:11 01:01 02:20 WBC (3.8-10.6) k/uL RBC (4.30-5.90) m/uL Hgb (13.0-17.5) gm/dL Hct (39.0-53.0) % Neutrophils # (1.3-7.7) k/uL Sodium (137-145) mmol/L Carbon Dioxide (22-30) mmol/L BUN (9-20) mg/dL Glucose (74-99) mg/dL POC Glucose (mg/dL) (70-110) mg/dL Plasma Lactic Acid Tunde 4.0 H* 2.9 H* (0.7-2.0) mmol/L Calcium (8.4-10.2) mg/dL Alkaline Phosphatase (38-126) U/L Troponin I 0.149 H* (0.000-0.034) ng/mL Total Protein (6.3-8.2) g/dL Albumin (3.5-5.0) g/dL Urine Ketones (Negative) Urine Blood (Negative) Ur Leukocyte Esterase (Negative) Urine Mucus (None) /hpf Coronavirus (PCR) (Not Detectd) 11/12/21 11/12/21 11/12/21 Range/Units 05:03 05:03 05:03 WBC 18.8 H (3.8-10.6) k/uL RBC 3.20 L (4.30-5.90) m/uL Hgb 9.5 L D (13.0-17.5) gm/dL Hct 28.6 L (39.0-53.0) % Neutrophils # 16.0 H (1.3-7.7) k/uL Sodium 129 L (137-145) mmol/L Carbon Dioxide 18 L (22-30) mmol/L BUN 81 H (9-20) mg/dL Glucose 107 H (74-99) mg/dL POC Glucose (mg/dL) (70-110) mg/dL Plasma Lactic Acid Tunde (0.7-2.0) mmol/L Calcium 7.5 L (8.4-10.2) mg/dL Alkaline Phosphatase 35 L (38-126) U/L Troponin I 0.155 H* (0.000-0.034) ng/mL Total Protein 4.4 L (6.3-8.2) g/dL Albumin 2.3 L (3.5-5.0) g/dL Urine Ketones (Negative) Urine Blood (Negative) Ur Leukocyte Esterase (Negative) Urine Mucus (None) /hpf Coronavirus (PCR) (Not Detectd) 11/12/21 11/12/21 11/12/21 Range/Units 05:03 06:44 07:45 WBC 17.9 H (3.8-10.6) k/uL RBC 3.07 L (4.30-5.90) m/uL Hgb 9.1 L (13.0-17.5) gm/dL Hct 27.9 L (39.0-53.0) % Neutrophils # (1.3-7.7) k/uL Sodium (137-145) mmol/L Carbon Dioxide (22-30) mmol/L BUN (9-20) mg/dL Glucose (74-99) mg/dL POC Glucose (mg/dL) 117 H (70-110) mg/dL Plasma Lactic Acid Tunde 2.3 H* (0.7-2.0) mmol/L Calcium (8.4-10.2) mg/dL Alkaline Phosphatase (38-126) U/L Troponin I (0.000-0.034) ng/mL Total Protein (6.3-8.2) g/dL Albumin (3.5-5.0) g/dL Urine Ketones (Negative) Urine Blood (Negative) Ur Leukocyte Esterase (Negative) Urine Mucus (None) /hpf Coronavirus (PCR) (Not Detectd) 11/12/21 Range/Units 07:45 WBC (3.8-10.6) k/uL RBC (4.30-5.90) m/uL Hgb (13.0-17.5) gm/dL Hct (39.0-53.0) % Neutrophils # (1.3-7.7) k/uL Sodium 130 L (137-145) mmol/L Carbon Dioxide 19 L (22-30) mmol/L BUN 80 H (9-20) mg/dL Glucose 103 H (74-99) mg/dL POC Glucose (mg/dL) (70-110) mg/dL Plasma Lactic Acid Tunde (0.7-2.0) mmol/L Calcium 7.5 L (8.4-10.2) mg/dL Alkaline Phosphatase (38-126) U/L Troponin I (0.000-0.034) ng/mL Total Protein (6.3-8.2) g/dL Albumin (3.5-5.0) g/dL Urine Ketones (Negative) Urine Blood (Negative) Ur Leukocyte Esterase (Negative) Urine Mucus (None) /hpf Coronavirus (PCR) (Not Detectd) Diabetes panel 11/11/21 11/12/21 11/12/21 Range/Units 17:32 05:03 07:45 Sodium 131 L 129 L 130 L (137-145) mmol/L Potassium 4.5 4.0 3.9 (3.5-5.1) mmol/L Chloride 102 105 106 (98-107) mmol/L Carbon Dioxide 21 L 18 L 19 L (22-30) mmol/L BUN 71 H 81 H 80 H (9-20) mg/dL Creatinine 1.21 1.23 1.19 (0.66-1.25) mg/dL Glucose 117 H 107 H 103 H (74-99) mg/dL Calcium 8.4 7.5 L 7.5 L (8.4-10.2) mg/dL AST 21 25 (17-59) U/L ALT 22 18 (4-49) U/L Alkaline Phosphatase 57 35 L (38-126) U/L Total Protein 5.3 L 4.4 L (6.3-8.2) g/dL Albumin 2.9 L 2.3 L (3.5-5.0) g/dL Calcium panel 11/11/21 11/12/21 11/12/21 Range/Units 17:32 05:03 07:45 Calcium 8.4 7.5 L 7.5 L (8.4-10.2) mg/dL Phosphorus 3.3 (2.5-4.5) mg/dL Albumin 2.9 L 2.3 L (3.5-5.0) g/dL Pituitary panel 11/11/21 11/12/21 11/12/21 Range/Units 17:32 05:03 07:45 Sodium 131 L 129 L 130 L (137-145) mmol/L Potassium 4.5 4.0 3.9 (3.5-5.1) mmol/L Chloride 102 105 106 (98-107) mmol/L Carbon Dioxide 21 L 18 L 19 L (22-30) mmol/L BUN 71 H 81 H 80 H (9-20) mg/dL Creatinine 1.21 1.23 1.19 (0.66-1.25) mg/dL Glucose 117 H 107 H 103 H (74-99) mg/dL Calcium 8.4 7.5 L 7.5 L (8.4-10.2) mg/dL Adrenal panel 11/11/21 11/12/21 11/12/21 Range/Units 17:32 05:03 07:45 Sodium 131 L 129 L 130 L (137-145) mmol/L Potassium 4.5 4.0 3.9 (3.5-5.1) mmol/L Chloride 102 105 106 (98-107) mmol/L Carbon Dioxide 21 L 18 L 19 L (22-30) mmol/L BUN 71 H 81 H 80 H (9-20) mg/dL Creatinine 1.21 1.23 1.19 (0.66-1.25) mg/dL Glucose 117 H 107 H 103 H (74-99) mg/dL Calcium 8.4 7.5 L 7.5 L (8.4-10.2) mg/dL Total Bilirubin 0.9 0.7 (0.2-1.3) mg/dL AST 21 25 (17-59) U/L ALT 22 18 (4-49) U/L Alkaline Phosphatase 57 35 L (38-126) U/L Total Protein 5.3 L 4.4 L (6.3-8.2) g/dL Albumin 2.9 L 2.3 L (3.5-5.0) g/dL
--- NOTE | 2021-11-12 08:45 | P.HPIM ---
History of Present Illness Chief Complaint: Precipitous anemia . The patient is a 81-year-old white male who has had history of pulmonary embolus and is on appropriate antiplatelet coagulation but had significant orthostatic hypotension and weakness. The patient during the first on her hospital physician became more hypotensive with movement. Precipitous anemia was otherwise noted. He was transferred to the ICU due to elevated heart rate and hypotension. Surgery was consulted because of GI bleeding. Guaiac positive. Appreciate consultants input. Elevated troponin was also noted echocardiogram was done and is pending Review of Systems Constitutional: Denies chills, Denies fever Eyes: denies blurred vision, denies pain Ears, nose, mouth and throat: Denies headache, Denies sore throat Cardiovascular: Reports as per HPI Respiratory: Reports as per HPI Gastrointestinal: Reports change in bowel habits Genitourinary: Reports as per HPI Musculoskeletal: Denies myalgias Past Medical History Past Medical History: Cancer, Hypertension Additional Past Medical History / Comment(s): kidney stones, tonsillectomy, bladder cancer History of Any Multi-Drug Resistant Organisms: None Reported Past Surgical History: No Surgical Hx Reported Past Anesthesia/Blood Transfusion Reactions: No Reported Reaction Smoking Status: Former smoker - Past Family History Father Family Medical History: Cancer Additional Family Medical History / Comment(s): colon cancer Brother(s) Family Medical History: Cancer Sister(s) Family Medical History: Cancer Medications and Allergies Home Medications Medication Instructions Recorded Confirmed Type Apixaban [Eliquis] 5 mg PO BID 11/11/21 11/11/21 History Atorvastatin Calcium [Lipitor] 40 mg PO DAILY 11/11/21 11/11/21 History Finasteride [Proscar] 5 mg PO DAILY 11/11/21 11/11/21 History Glucosam/Yoav-Msm1/C/Alan/Bosw 1 tab PO DAILY 11/11/21 11/11/21 History [Glucosamine-Chondroitin Tablet] Ibuprofen [Motrin] 800 mg PO Q8H PRN 11/11/21 11/11/21 History Olopatadine HCl [Pataday Once 1 drop BOTH EYES BID 11/11/21 11/11/21 History Daily Relief] Ondansetron [Zofran] 4 mg PO TID PRN 11/11/21 11/11/21 History RX: Dutasteride 0.5 mg PO DAILY 11/11/21 11/11/21 History RX: Sildenafil Citrate 100 mg PO DAILY PRN 11/11/21 11/11/21 History RX: hydroCHLOROthiazide 12.5 mg PO DAILY 11/11/21 11/11/21 History [Hydrodiuril] Tamsulosin [Flomax] 0.4 mg PO DAILY 11/11/21 11/11/21 History Testosterone Cypionate 200 mg IM Q30D 11/11/21 11/11/21 History [Depo-Testosterone] lisinopriL [Zestril] 2.5 mg PO DAILY 11/11/21 11/11/21 History Allergies Allergy/AdvReac Type Severity Reaction Status Date / Time No Known Allergies Allergy Verified 11/11/21 18:06 Physical Exam Vitals: Vital Signs Temp Pulse Pulse Resp BP BP Pulse Ox 11/12/21 07:00 105 H 29 H 133/62 96 11/12/21 03:03 97.5 F L 61 15 89/59 99 11/12/21 02:00 99 17 11/12/21 00:00 98.3 F 99 15 107/63 92 L 11/11/21 23:11 97.5 F L 110 H 16 80/51 92 L 11/11/21 22:00 100 18 106/63 96 11/11/21 21:49 108 H 18 96/60 98 11/11/21 21:30 102 H 18 61/48 98 11/11/21 19:00 106 H 20 125/71 99 11/11/21 18:30 97.6 F 103 H 77/55 96 11/11/21 18:00 112 H 94/48 96 11/11/21 17:30 105 H 99/57 96 11/11/21 17:00 110 H 88/53 94 L 11/11/21 16:30 114 H 97/54 95 11/11/21 16:00 112 H 18 96/60 94 L 11/11/21 15:16 97.4 F L 126 H 20 108/57 96 Intake and Output 11/11/21 11/12/21 11/12/21 22:59 06:59 14:59 Intake Total 1200 Output Total 150 Balance 1050 Intake: Intake, IV Titration 1200 Amount Sodium Chloride 0.9% 1, 700 000 ml @ 75 mls/hr IV . [id number] STA Rx#:[id number] Sodium Chloride 0.9% 1, 500 000 ml @ 999 mls/hr IV . Q1H1M STA Rx#:[id number] Output: Urine 150 Other: Voiding Method Urinal Weight 102.058 kg 101 kg - Constitutional General appearance: obese - EENT Eyes: no abnormal pupil - Neck Neck: no lymphadenopathy - Respiratory Respiratory: bilateral: diminished - Cardiovascular Rhythm: regular Heart sounds: normal: S1, S2 Abnormal Heart Sounds: no S3 Gallop - Gastrointestinal General gastrointestinal: soft, no tenderness - Integumentary Integumentary: no cellulitis - Musculoskeletal Musculoskeletal: generalized weakness - Psychiatric Psychiatric: A&O x's 3, appropriate affect Results CBC & Chem 7: 11/12/21 07:45 11/12/21 07:45 Labs: Abnormal Lab Results - Last 24 Hours (Table) 11/11/21 11/11/21 11/11/21 Range/Units 17:00 17:00 17:32 WBC 20.1 H (3.8-10.6) k/uL RBC (4.30-5.90) m/uL Hgb 12.4 L (13.0-17.5) gm/dL Hct (39.0-53.0) % Neutrophils # 17.7 H (1.3-7.7) k/uL Sodium (137-145) mmol/L Carbon Dioxide (22-30) mmol/L BUN (9-20) mg/dL Glucose (74-99) mg/dL POC Glucose (mg/dL) (70-110) mg/dL Plasma Lactic Acid Tunde (0.7-2.0) mmol/L Calcium (8.4-10.2) mg/dL Alkaline Phosphatase (38-126) U/L Troponin I (0.000-0.034) ng/mL Total Protein (6.3-8.2) g/dL Albumin (3.5-5.0) g/dL Urine Ketones Trace H (Negative) Urine Blood Trace H (Negative) Ur Leukocyte Esterase Trace H (Negative) Urine Mucus Rare H (None) /hpf Coronavirus (PCR) Detected A (Not Detectd) 11/11/21 11/11/21 11/11/21 Range/Units 17:32 17:32 17:32 WBC (3.8-10.6) k/uL RBC (4.30-5.90) m/uL Hgb (13.0-17.5) gm/dL Hct (39.0-53.0) % Neutrophils # (1.3-7.7) k/uL Sodium 131 L (137-145) mmol/L Carbon Dioxide 21 L (22-30) mmol/L BUN 71 H (9-20) mg/dL Glucose 117 H (74-99) mg/dL POC Glucose (mg/dL) (70-110) mg/dL Plasma Lactic Acid Tunde 2.2 H* (0.7-2.0) mmol/L Calcium (8.4-10.2) mg/dL Alkaline Phosphatase (38-126) U/L Troponin I 0.046 H* (0.000-0.034) ng/mL Total Protein 5.3 L (6.3-8.2) g/dL Albumin 2.9 L (3.5-5.0) g/dL Urine Ketones (Negative) Urine Blood (Negative) Ur Leukocyte Esterase (Negative) Urine Mucus (None) /hpf Coronavirus (PCR) (Not Detectd) 11/11/21 11/12/21 11/12/21 Range/Units 22:11 01:01 02:20 WBC (3.8-10.6) k/uL RBC (4.30-5.90) m/uL Hgb (13.0-17.5) gm/dL Hct (39.0-53.0) % Neutrophils # (1.3-7.7) k/uL Sodium (137-145) mmol/L Carbon Dioxide (22-30) mmol/L BUN (9-20) mg/dL Glucose (74-99) mg/dL POC Glucose (mg/dL) (70-110) mg/dL Plasma Lactic Acid Tunde 4.0 H* 2.9 H* (0.7-2.0) mmol/L Calcium (8.4-10.2) mg/dL Alkaline Phosphatase (38-126) U/L Troponin I 0.149 H* (0.000-0.034) ng/mL Total Protein (6.3-8.2) g/dL Albumin (3.5-5.0) g/dL Urine Ketones (Negative) Urine Blood (Negative) Ur Leukocyte Esterase (Negative) Urine Mucus (None) /hpf Coronavirus (PCR) (Not Detectd) 11/12/21 11/12/21 11/12/21 Range/Units 05:03 05:03 05:03 WBC 18.8 H (3.8-10.6) k/uL RBC 3.20 L (4.30-5.90) m/uL Hgb 9.5 L D (13.0-17.5) gm/dL Hct 28.6 L (39.0-53.0) % Neutrophils # 16.0 H (1.3-7.7) k/uL Sodium 129 L (137-145) mmol/L Carbon Dioxide 18 L (22-30) mmol/L BUN 81 H (9-20) mg/dL Glucose 107 H (74-99) mg/dL POC Glucose (mg/dL) (70-110) mg/dL Plasma Lactic Acid Tunde (0.7-2.0) mmol/L Calcium 7.5 L (8.4-10.2) mg/dL Alkaline Phosphatase 35 L (38-126) U/L Troponin I 0.155 H* (0.000-0.034) ng/mL Total Protein 4.4 L (6.3-8.2) g/dL Albumin 2.3 L (3.5-5.0) g/dL Urine Ketones (Negative) Urine Blood (Negative) Ur Leukocyte Esterase (Negative) Urine Mucus (None) /hpf Coronavirus (PCR) (Not Detectd) 11/12/21 11/12/21 11/12/21 Range/Units 05:03 06:44 07:45 WBC 17.9 H (3.8-10.6) k/uL RBC 3.07 L (4.30-5.90) m/uL Hgb 9.1 L (13.0-17.5) gm/dL Hct 27.9 L (39.0-53.0) % Neutrophils # (1.3-7.7) k/uL Sodium (137-145) mmol/L Carbon Dioxide (22-30) mmol/L BUN (9-20) mg/dL Glucose (74-99) mg/dL POC Glucose (mg/dL) 117 H (70-110) mg/dL Plasma Lactic Acid Tunde 2.3 H* (0.7-2.0) mmol/L Calcium (8.4-10.2) mg/dL Alkaline Phosphatase (38-126) U/L Troponin I (0.000-0.034) ng/mL Total Protein (6.3-8.2) g/dL Albumin (3.5-5.0) g/dL Urine Ketones (Negative) Urine Blood (Negative) Ur Leukocyte Esterase (Negative) Urine Mucus (None) /hpf Coronavirus (PCR) (Not Detectd) 11/12/21 Range/Units 07:45 WBC (3.8-10.6) k/uL RBC (4.30-5.90) m/uL Hgb (13.0-17.5) gm/dL Hct (39.0-53.0) % Neutrophils # (1.3-7.7) k/uL Sodium 130 L (137-145) mmol/L Carbon Dioxide 19 L (22-30) mmol/L BUN 80 H (9-20) mg/dL Glucose 103 H (74-99) mg/dL POC Glucose (mg/dL) (70-110) mg/dL Plasma Lactic Acid Tunde (0.7-2.0) mmol/L Calcium 7.5 L (8.4-10.2) mg/dL Alkaline Phosphatase (38-126) U/L Troponin I (0.000-0.034) ng/mL Total Protein (6.3-8.2) g/dL Albumin (3.5-5.0) g/dL Urine Ketones (Negative) Urine Blood (Negative) Ur Leukocyte Esterase (Negative) Urine Mucus (None) /hpf Coronavirus (PCR) (Not Detectd) Thrombosis Risk Factor Assmnt - Choose All That Apply Any of the Below Risk Factors Present?: Yes Each Factor Represents 1 point: Age 41-60 years, Medical pt on bed rest, Swollen legs (current) Other Risk Factors: Yes Each Risk Factor Represents 2 Points: Age 61-74 years, Patient confined to bed Each Risk Factor Represents 3 Points: Age 75 years or older, History of DVT/PE Other congenital or acquired thrombophilia - If yes, enter type in comment: No Thrombosis Risk Factor Assessment Total Risk Factor Score: 13 Thrombosis Risk Factor Assessment Level: High Risk Assessment and Plan (1) Guaiac positive stools Current Visit: Yes Status: Acute Code(s): R19.5 - OTHER FECAL ABNORMALITIES SNOMED Code(s): 92222843 (2) Anemia due to acute blood loss Current Visit: Yes Status: Acute Code(s): D62 - ACUTE POSTHEMORRHAGIC ANEMIA SNOMED Code(s): 117349267 (3) COVID-19 Current Visit: Yes Status: Acute Code(s): U07.1 - COVID-19 SNOMED Code(s): 507373916 (4) Dehydration Current Visit: Yes Status: Acute Code(s): E86.0 - DEHYDRATION SNOMED Code(s): 70869330 (5) History of DVT (deep vein thrombosis) Current Visit: Yes Status: Acute Code(s): Z86.718 - PERSONAL HISTORY OF OTHER VENOUS THROMBOSIS AND EMBOLISM SNOMED Code(s): 981726435 (6) Hypotension Current Visit: Yes Status: Acute Code(s): I95.9 - HYPOTENSION, UNSPECIFIED SNOMED Code(s): 20596650 (7) Lactic acidosis Current Visit: Yes Status: Acute Code(s): E87.2 - ACIDOSIS SNOMED Code(s): 50530973 (8) Leukocytosis Current Visit: Yes Status: Acute Code(s): D72.829 - ELEVATED WHITE BLOOD CELL COUNT, UNSPECIFIED SNOMED Code(s): 903892747 (9) Orthostatic hypotension Current Visit: Yes Status: Acute Code(s): I95.1 - ORTHOSTATIC HYPOTENSION SNOMED Code(s): 59941530 (10) Sinus tachycardia Current Visit: Yes Status: Acute Code(s): R00.0 - TACHYCARDIA, UNSPECIFIED SNOMED Code(s): 24116684 Plan: Check CBC. Empiric antibiotic treatment. Question need for transfusion. Endoscopy per consultants. History of PE/DVT. Otherwise, GI prophylaxis
[2021-11-12] MEDS ORDERED: PANTOPRAZOLE 40 MG/10 ML VIAL IV SCH (09:00)
[2021-11-12] MEDS ORDERED: FINASTERIDE 5 MG TAB PO SCH (09:00)
[2021-11-12] MEDS ORDERED: NON FORMULARY DRUG (Glucosam/Chon-Msm1/C/Mang/Bosw [Glucosamine-Chondroitin Tablet] 1 EACH PO SCH (09:00)
[2021-11-12 09:02] LABS: Platelet Count 40 k/uL (150-450)
[2021-11-12] MEDS ORDERED: ALPRAZolam 0.5 MG TAB PO PRN (09:26)
--- NOTE | 2021-11-12 09:42 | CA ---
Transthoracic Echo Report Name: Scooter Ureña Age: 81 Gender: M : 1940 Exam Date: 11/12/2021 08:21 Exam Location: [facility] Ht (in): 67 Wt (lb): 222 Ordering Physician: Juanjose Mancuso DO Attending/Referring Phys: [id number], Jamee Administrative Tech Jazmine Martinez, PAULA Procedure CPT: Indications: SOB, hypotension Cardiac Hx: Hx of HTN Technical Quality: Technically difficult study Contrast 1: Lumason Total Dose (mL): 1 Contrast 2: Total Dose (mL): MEASUREMENTS (Male / Female) Normal Values 2D ECHO LV Diastolic Diameter PLAX 3.8 cm 4.2 - 5.9 / 3.9 - 5.3 cm LV Systolic Diameter PLAX 1.3 cm IVS Diastolic Thickness 1.2 cm 0.6 - 1.0 / 0.6 - 0.9 cm LVPW Diastolic Thickness 1.1 cm 0.6 - 1.0 / 0.6 - 0.9 cm LV Relative Wall Thickness 0.6 M-MODE Aortic Root Diameter MM 3.2 cm LA Systolic Diameter MM 3.3 cm LA Ao Ratio MM 1.0 MV E Point Septal Separation 1.2 cm DOPPLER AV Peak Velocity 251.9 cm/s AV Peak Gradient 25.4 mmHg AV Mean Velocity 199.0 cm/s AV Mean Gradient 18.0 mmHg AV Velocity Time Integral 44.1 cm LVOT Peak Velocity 64.2 cm/s LVOT Peak Gradient 1.6 mmHg MV Area PHT 2.6 cm??? MR Peak Velocity 342.7 cm/s MR Peak Gradient 47.0 mmHg Mitral E Point Velocity 72.7 cm/s Mitral A Point Velocity 124.5 cm/s Mitral E to A Ratio 0.6 MV Deceleration Time 292.7 ms TR Peak Velocity 139.8 cm/s TR Peak Gradient 7.8 mmHg Right Ventricular Systolic Press 12.1 mmHg FINDINGS Left Ventricle Mildly increased septal wall thickness. Left ventricular ejection fraction is estimated at 55-60_%. Left ventricular cavity size normal. Right Ventricle Right ventricle not well visualized. Right Atrium Right atrium not well visualized. Left Atrium Left atrium not well visualized. Mitral Valve Mitral valve not well visualized. Trace mitral regurgitation. Aortic Valve Aortic valve not well visualized. Mild aortic stenosis with a peak gradient of 25mmHg and a mean gradient of 18 mmHg. Tricuspid Valve Tricuspid valve not well visualized. Trace tricuspid regurgitation. Pulmonic Valve Pulmonic valve not well visualized. Pericardium No pericardial effusion. Aorta Aortic root and proximal ascending aorta not well visualized. CONCLUSIONS Technically difficult study. Valve structures are poorly seen. Grossly with echo contrast the systolic function appears to be normal. There is increased velocity across aortic valve with possible mild aortic stenosis. No significant pericardial effusion. Previewed by: Dr. Carlos Mayes MD (Electronically Signed) Final Date: 12 November 2021 09:41
[2021-11-12] MEDS: PANTOPRAZOLE 40 MG/10 ML VIAL IVP SCH ×2 (09:51→20:58)
[2021-11-12] MEDS: TAMSULOSIN 0.4 MG CAP.ER.24H PO SCH (09:53)
[2021-11-12] MEDS: ATORVASTATIN 40 MG TAB PO SCH (09:53)
[2021-11-12] MEDS: APIXABAN 5 MG TAB PO SCH ×2 (10:05→20:54)
--- NOTE | 2021-11-12 10:32 | P.CRDCN ---
History of Present Illness Consult date: 11/12/21 History of present illness: Patient has a known history history of hypertension and bladder cancer with recent treatment of chemotherapy 6 months ago. Since completing chemotherapy he a pulmonary embolism and right DVT he is on Eliquis. Patient was recently hospitalized in [place] around 2 weeks ago treated for Covid. Patient presented to the ER yesterday with complaints of blood in stool weakness, nausea or vomiting and dizziness. Patient was found to have hypotension and positive occult. He been consulted for elevated troponins. Troponins 0.046, 0.149, 0. 155. Elevated troponins most likely secondary to acute kidney injury. EKG shows sinus tachycardia. His echocardiogram shows a normal LV function with an EF of 55-60% and mild aortic stenosis. Chest x-ray showed no acute cardiopulmonary process. CT of the chest shows no evidence of pulmonary embolism, only chronic COPD. he was seen this morning resting comfortably in bed rate and signs of acute distress. He remains in sinus rhythm with a slightly elevated heart rate low 100s. Blood pressures controlled 104/50. Labs today show hemoglobin 9.1 thrombocytopenia with a platelet count of 40, sodium 130 potassium 3.9 BUN 80 creatinine 1.19. Consider holding Eliquis due to thrombocytopenia and positive occult, however with recent PE and DVT, follow recommendations of front clerk to whether or not to hold or continue Eliquis at this time. Review of Systems REVIEW OF SYSTEMS At the time of my exam: CONSTITUTIONAL: Denies fever or chills. EYES: Negative for vision changes ENT: Negative for hearing loss CARDIOVASCULAR: Denies chest pain, shortness of breath, diaphoresis, orthopnea, PND or palpitations. VASCULAR: Denies edema RESPIRATORY: Denies cough. GASTROINTESTINAL: Denies abdominal pain, diarrhea, constipation, nausea or vomiting. MUSCULOSKELETAL: Denies myalgias. NEUROLOGIC: Denies numbness, tingling, headache or weakness. ENDOCRINE: Denies fatigue, weight change, polydipsia or polyurina. GENITOURINARY: Denies burning, hematuria or urgency with micturation. HEMATOLOGIC: Denies history of anemia or bleeding. DERMATOLOGY: Denies rash or skin sores PSYCH: Negative for depression or hallucinations. Past Medical History Past Medical History: Cancer, Hypertension Additional Past Medical History / Comment(s): kidney stones, tonsillectomy, bladder cancer History of Any Multi-Drug Resistant Organisms: None Reported Past Surgical History: No Surgical Hx Reported Past Anesthesia/Blood Transfusion Reactions: No Reported Reaction Smoking Status: Former smoker - Past Family History Father Family Medical History: Cancer Additional Family Medical History / Comment(s): colon cancer Brother(s) Family Medical History: Cancer Sister(s) Family Medical History: Cancer Medications and Allergies Home Medications Medication Instructions Recorded Confirmed Type Apixaban [Eliquis] 5 mg PO BID 11/11/21 11/11/21 History Atorvastatin Calcium [Lipitor] 40 mg PO DAILY 11/11/21 11/11/21 History Dutasteride 0.5 mg PO DAILY 11/11/21 11/11/21 History Finasteride [Proscar] 5 mg PO DAILY 11/11/21 11/11/21 History Glucosam/Yoav-Msm1/C/Alan/Bosw 1 tab PO DAILY 11/11/21 11/11/21 History [Glucosamine-Chondroitin Tablet] Ibuprofen [Motrin] 800 mg PO Q8H PRN 11/11/21 11/11/21 History Olopatadine HCl [Pataday Once 1 drop BOTH EYES BID 11/11/21 11/11/21 History Daily Relief] Ondansetron [Zofran] 4 mg PO TID PRN 11/11/21 11/11/21 History Sildenafil Citrate 100 mg PO DAILY PRN 11/11/21 11/11/21 History Tamsulosin [Flomax] 0.4 mg PO DAILY 11/11/21 11/11/21 History Testosterone Cypionate 200 mg IM Q30D 11/11/21 11/11/21 History [Depo-Testosterone] hydroCHLOROthiazide [Hydrodiuril] 12.5 mg PO DAILY 11/11/21 11/11/21 History lisinopriL [Zestril] 2.5 mg PO DAILY 11/11/21 11/11/21 History Allergies Allergy/AdvReac Type Severity Reaction Status Date / Time No Known Allergies Allergy Verified 11/11/21 18:06 Physical Exam Vitals: Vital Signs Temp Pulse Pulse Resp BP BP Pulse Ox 11/12/21 07:00 105 H 29 H 133/62 96 11/12/21 03:03 97.5 F L 61 15 89/59 99 11/12/21 02:00 99 17 11/12/21 00:00 98.3 F 99 15 107/63 92 L 11/11/21 23:11 97.5 F L 110 H 16 80/51 92 L 11/11/21 22:00 100 18 106/63 96 11/11/21 21:49 108 H 18 96/60 98 11/11/21 21:30 102 H 18 61/48 98 11/11/21 19:00 106 H 20 125/71 99 11/11/21 18:30 97.6 F 103 H 77/55 96 11/11/21 18:00 112 H 94/48 96 11/11/21 17:30 105 H 99/57 96 11/11/21 17:00 110 H 88/53 94 L 11/11/21 16:30 114 H 97/54 95 11/11/21 16:00 112 H 18 96/60 94 L 11/11/21 15:16 97.4 F L 126 H 20 108/57 96 Intake and Output 11/11/21 11/12/21 11/12/21 22:59 06:59 14:59 Intake Total 1200 Output Total 150 Balance 1050 Intake: Intake, IV Titration 1200 Amount Sodium Chloride 0.9% 1, 700 000 ml @ 75 mls/hr IV . [id number] STA Rx#:[id number] Sodium Chloride 0.9% 1, 500 000 ml @ 999 mls/hr IV . Q1H1M STA Rx#:[id number] Output: Urine 150 Other: Voiding Method Urinal Weight 102.058 kg 101 kg PHYSICAL EXAMINATION General: The patient is awake and alert, in no distress, and does not appear acutely ill. Skin: Skin is warm and dry and no rashes or lesions are noted. Eye: Pupils are equal, round and reactive to light, extra-ocular movements are intact; there is normal conjunctiva bilaterally. Ears, nose, mouth and throat: There are moist mucous membranes and no oral lesions. Neck: The neck is supple, there is no tenderness or JVD. Cardiovascular: There is regular rate and rhythm. No murmur, rub or gallop is appreciated. Respiratory: Lungs are clear to auscultation, respirations are non-labored, breath sounds are equal. Gastrointestinal: Soft, non-distended, non-tender abdomen without masses or organomegaly noted. There is no rebound or guarding present. Bowel sounds are unremarkable. Back: There is no tenderness to palpation in the midline. There is no obvious deformity. Musculoskeletal: Normal ROM, no tenderness, There is no pedal edema. There is no calf tenderness or swelling. Extremities: Mild bilateral pitting edema Vascular: Femoral pulse is normal. Posterior tibial pulses are normal .Dorsalis pedis is palpable. Neurological: CN II-XII intact. There are no obvious motor or sensory deficits. Speech is normal. Psychiatric: Cooperative, appropriate mood & affect, normal judgment Results 11/12/21 07:45 11/12/21 07:45 Cardiac Enzymes 11/11/21 11/11/21 11/12/21 Range/Units 17:32 17:32 01:01 AST 21 (17-59) U/L Troponin I 0.046 H* 0.149 H* (0.000-0.034) ng/mL 11/12/21 11/12/21 Range/Units 05:03 05:03 AST 25 (17-59) U/L Troponin I 0.155 H* (0.000-0.034) ng/mL Coagulation 11/11/21 Range/Units 17:32 PT 11.8 (9.0-12.0) sec APTT 29.0 (22.0-30.0) sec CBC 11/11/21 11/12/21 11/12/21 Range/Units 17:32 05:03 07:45 WBC 20.1 H 18.8 H 17.9 H (3.8-10.6) k/uL RBC 4.39 3.20 L 3.07 L (4.30-5.90) m/uL Hgb 12.4 L 9.5 L D 9.1 L (13.0-17.5) gm/dL Hct 39.1 28.6 L 27.9 L (39.0-53.0) % Plt Count 215 169 40 L D (150-450) k/uL Comprehensive Metabolic Panel 11/11/21 11/12/21 11/12/21 Range/Units 17:32 05:03 07:45 Sodium 131 L 129 L 130 L (137-145) mmol/L Potassium 4.5 4.0 3.9 (3.5-5.1) mmol/L Chloride 102 105 106 (98-107) mmol/L Carbon Dioxide 21 L 18 L 19 L (22-30) mmol/L BUN 71 H 81 H 80 H (9-20) mg/dL Creatinine 1.21 1.23 1.19 (0.66-1.25) mg/dL Glucose 117 H 107 H 103 H (74-99) mg/dL Calcium 8.4 7.5 L 7.5 L (8.4-10.2) mg/dL AST 21 25 (17-59) U/L ALT 22 18 (4-49) U/L Alkaline Phosphatase 57 35 L (38-126) U/L Total Protein 5.3 L 4.4 L (6.3-8.2) g/dL Albumin 2.9 L 2.3 L (3.5-5.0) g/dL Current Medications Generic Name Dose Route Start Last Admin Trade Name Freq PRN Reason Stop Dose Admin Acetaminophen 650 mg 11/11/21 21:09 Acetaminophen Tab 325 Mg Tab PO Q6HR PRN Mild Pain or Fever > 100.5 Alprazolam 0.5 mg 11/12/21 09:26 11/12/21 09:52 Alprazolam 0.5 Mg Tab PO 0.5 mg TID PRN Administration Anxiety Apixaban 5 mg 11/12/21 09:00 11/12/21 10:05 Apixaban 5 Mg Tab PO Not Given BID [facility] Protocol Atorvastatin Calcium 40 mg 11/12/21 09:00 11/12/21 09:53 Atorvastatin 40 Mg Tab PO 40 mg DAILY JOSE Administration Finasteride 5 mg 11/12/21 09:00 Finasteride 5 Mg Tab PO DAILY [facility] Finasteride 5 mg 11/12/21 09:00 Finasteride 5 Mg Tab PO DAILY [facility] Hydrochlorothiazide 12.5 mg 11/12/21 09:00 Hydrochlorothiazide 12.5 Mg Cap PO DAILY [facility] Ceftriaxone Sodium 1 gm/ 50 mls @ 100 mls/hr 11/12/21 22:00 Sodium Chloride IVPB Q24H [facility] Protocol Ketotifen Fumarate 1 drops 11/12/21 09:00 Ketotifen 0.025% Ophth Drops 5 Ml Btl BOTH EYES BID JOSE Lisinopril 2.5 mg 11/12/21 09:00 Lisinopril 2.5 Mg Tab PO DAILY [facility] Naloxone HCl 0.2 mg 11/12/21 07:01 Naloxone 0.4 Mg/Ml 1 Ml Vial IV Q2M PRN Opioid Reversal Ondansetron HCl 4 mg 11/11/21 21:09 Ondansetron 4 Mg/2 Ml Vial IVP Q4H PRN Nausea And Vomiting Pantoprazole Sodium 40 mg 11/12/21 09:00 11/12/21 09:51 Pantoprazole 40 Mg/10 Ml Vial IVP 40 mg BID JOSE Administration Tamsulosin HCl 0.4 mg 11/12/21 09:00 11/12/21 09:53 Tamsulosin 0.4 Mg Cap.Er.24h PO 0.4 mg DAILY JOSE Administration Intake and Output 11/11/21 11/12/21 11/12/21 22:59 06:59 14:59 Intake Total 1200 Output Total 150 Balance 1050 Intake: Intake, IV Titration 1200 Amount Sodium Chloride 0.9% 1, 700 000 ml @ 75 mls/hr IV . [id number] STA Rx#:[id number] Sodium Chloride 0.9% 1, 500 000 ml @ 999 mls/hr IV . Q1H1M STA Rx#:[id number] Output: Urine 150 Other: Voiding Method Urinal Weight 102.058 kg 101 kg 11/12/21 07:45 11/12/21 07:45 Assessment and Plan Assessment: Elevated troponins probably related to acute kidney injury Hypotension Anemia due to acute blood loss Thrombocythemia Positive occult Covid in 19 History of DVT Hypertension Plan: Continue with current cardiac medications Further recommendations on Eliquis per front clerk Echo obtained and reviewed Continue with strict I's and O's and daily weights Continue telemetry monitoring Further recommendations based on clinical course The above impression and plan of care have been discussed and directed by the signing physician. Alise Martínez, nurse practitioner, acting as scribe for signing physician.
[2021-11-12 11:08] VITALS: BMI 34.9
[2021-11-12] MEDS: FINASTERIDE 5 MG TAB PO SCH (11:36)
[2021-11-12] MEDS: hydroCHLOROthiazide 12.5 MG CAP PO SCH (11:39)
[2021-11-12] MEDS: SODIUM CHLORIDE 0.9% 1,000 ML IV SCH ×2 (11:40→18:07)
--- NOTE | 2021-11-12 12:07 | P.CNPUL ---
History of Present Illness Consult date: 11/12/21 Requesting physician: Fermin Pedro Reason for consult: other (GI bleeding, I see management) Chief complaint: Black stools and weakness History of present illness: This is an 81-year-old white male with history of multiple medical problems including bladder cancer, patient received chemotherapy for his bladder cancer. And this was about 6 months ago. In the last 2 weeks, patient was diagnosed with COVID-19 infection, patient presented with acute DVT and pulmonary embolism, and apparently he was found to have positive COVID-19 infection. Patient was treated with anticoagulation therapy, and he was on anticoagulations therapy for the last 2 weeks. Yesterday the patient came into the ER with multiple constitutional symptoms including weakness, fatigue, intermittent episodes of nausea and vomiting. Unable to hold anything down. Patient was feeling dizzy, apparently he was discharged from the hospital in [place] about one week ago. Patient was discharged on anticoagulations therapy and the patient at this time he is having black tarry stools, and he had positive Hemoccult in the ER. His initial hemoglobin on presentation was 12.4, however overnight the patient had more episodes of black tarry stools, and his hemoglobin is down to 9.1 this morning His anticoagulations therapy is presently on hold. Patient was seen by general surgery on consultation, and seems to be concerned about his elevated troponin. Patient was seen by cardiology, who felt that his elevated troponin is probably related to his acute kidney injury. At any rate the patient is now in the ICU, he seems to be comfortable, however the patient will definitely need further workup and considering that we don't have any GI coverage available, I strongly suggested to his family and to the patient to consider transfer to another institution[facility] if possible. Where GI coverage is available. In the meantime we'll continue to hold his anticoagulations medication and will have to decide whether the patient will need IVC filter placement since he just recently had DVT and pulmonary embolism. CT angiogram of the chest on this admission showed no evidence of thromboembolic disease. Review of Systems CONSTITUTIONAL: Weakness fatigue no fever no chills no weight loss. EYES: Negative ENT: Negative CARDIOVASCULAR: Negative VASCULAR: History of DVT and pulmonary embolism RESPIRATORY: Negative GASTROINTESTINAL: As noted in HPI MUSCULOSKELETAL: Weakness NEUROLOGIC: Negative ENDOCRINE: Negative GENITOURINARY: History of bladder cancer status post chemotherapy HEMATOLOGIC: No previous history of GI bleeding DERMATOLOGY: Negative PSYCH: Negative Past Medical History Past Medical History: Cancer, Hypertension Additional Past Medical History / Comment(s): kidney stones, tonsillectomy, bladder cancer History of Any Multi-Drug Resistant Organisms: None Reported Past Surgical History: No Surgical Hx Reported Past Anesthesia/Blood Transfusion Reactions: No Reported Reaction Smoking Status: Former smoker - Past Family History Father Family Medical History: Cancer Additional Family Medical History / Comment(s): colon cancer Brother(s) Family Medical History: Cancer Sister(s) Family Medical History: Cancer Medications and Allergies Home Medications Medication Instructions Recorded Confirmed Type Apixaban [Eliquis] 5 mg PO BID 11/11/21 11/11/21 History Atorvastatin Calcium [Lipitor] 40 mg PO DAILY 11/11/21 11/11/21 History Dutasteride 0.5 mg PO DAILY 11/11/21 11/11/21 History Finasteride [Proscar] 5 mg PO DAILY 11/11/21 11/11/21 History Glucosam/Yoav-Msm1/C/Alan/Bosw 1 tab PO DAILY 11/11/21 11/11/21 History [Glucosamine-Chondroitin Tablet] Ibuprofen [Motrin] 800 mg PO Q8H PRN 11/11/21 11/11/21 History Olopatadine HCl [Pataday Once 1 drop BOTH EYES BID 11/11/21 11/11/21 History Daily Relief] Ondansetron [Zofran] 4 mg PO TID PRN 11/11/21 11/11/21 History Sildenafil Citrate 100 mg PO DAILY PRN 11/11/21 11/11/21 History Tamsulosin [Flomax] 0.4 mg PO DAILY 11/11/21 11/11/21 History Testosterone Cypionate 200 mg IM Q30D 11/11/21 11/11/21 History [Depo-Testosterone] hydroCHLOROthiazide [Hydrodiuril] 12.5 mg PO DAILY 11/11/21 11/11/21 History lisinopriL [Zestril] 2.5 mg PO DAILY 11/11/21 11/11/21 History Allergies Allergy/AdvReac Type Severity Reaction Status Date / Time No Known Allergies Allergy Verified 11/11/21 18:06 Physical Exam Vitals: Vital Signs Temp Pulse Pulse Resp BP BP Pulse Ox 11/12/21 11:00 106/63 07/28/22 10:30 106/63 11/12/21 10:00 106/63 11/12/21 09:30 109 H 22 112/46 96 11/12/21 09:00 110 H 19 118/49 97 11/12/21 08:30 106/63 11/12/21 08:00 98.0 F 108 H 20 107/52 95 11/12/21 07:30 88 H 108/49 95 11/12/21 07:00 105 H 29 H 133/62 96 11/12/21 03:03 97.5 F L 61 15 89/59 99 11/12/21 02:00 99 17 11/12/21 00:00 98.3 F 99 15 107/63 92 L 11/11/21 23:11 97.5 F L 110 H 16 80/51 92 L 11/11/21 22:00 100 18 106/63 96 11/11/21 21:49 108 H 18 96/60 98 11/11/21 21:30 102 H 18 61/48 98 11/11/21 19:00 106 H 20 125/71 99 11/11/21 18:30 97.6 F 103 H 77/55 96 11/11/21 18:00 112 H 94/48 96 11/11/21 17:30 105 H 99/57 96 11/11/21 17:00 110 H 88/53 94 L 11/11/21 16:30 114 H 97/54 95 11/11/21 16:00 112 H 18 96/60 94 L 11/11/21 15:16 97.4 F L 126 H 20 108/57 96 Intake and Output 11/11/21 11/12/21 11/12/21 22:59 06:59 14:59 Intake Total 1200 300 Output Total 150 425 Balance 1050 -125 Intake: Intake, IV Titration 1200 300 Amount Sodium Chloride 0.9% 1, 700 000 ml @ 75 mls/hr IV . [id number] STA Rx#:[id number] Sodium Chloride 0.9% 1, 300 000 ml @ 999 mls/hr IV . Q1H1M ONE Rx#:[id number] Sodium Chloride 0.9% 1, 500 000 ml @ 999 mls/hr IV . Q1H1M STA Rx#:[id number] Output: Urine 150 425 Other: Voiding Method Urinal Indwelling Catheter Weight 102.058 kg 101 kg 101 kg Physical Exam: Revealed an 81-year-old white male in no distress, looks frail and chronically ill. Head: Atraumatic, normocephalic. HEENT:[Neck is supple.] [No neck masses.] [No thyromegaly.] [No JVD.] Pale conjunctivae, nonicteric. Dry mucous membranes. Chest: Symmetrical chest expansion clear throughout no crackles or rhonchi or wheezes Cardiac Exam: [Normal S1 and S2, no S3 gallop, no murmur.] Abdomen: [Soft, nontender, no megaly, no rebound, no guarding, normal bowel sounds.] Extremities: [No clubbing, no edema, no cyanosis.] Good pulses bilaterally. Neurological Exam: [No focal neurologic deficit.] No gross focal deficits. Psychiatric: Normal mood, affect and normal mental status examination. Skin: No rashes. Results - Laboratory Findings CBC and BMP: 11/12/21 07:45 11/12/21 07:45 PT/INR, D-dimer PT 11.8 sec (9.0-12.0) 11/11/21 17:32 INR 1.1 (<1.2) 11/11/21 17:32 Abnormal lab findings: Abnormal Labs 11/11/21 11/11/21 11/11/21 17:00 17:00 17:32 WBC 20.1 H RBC Hgb 12.4 L Hct Plt Count Neutrophils # 17.7 H Sodium Carbon Dioxide BUN Glucose POC Glucose (mg/dL) Plasma Lactic Acid Tunde Calcium Alkaline Phosphatase Troponin I Total Protein Albumin Urine Ketones Trace H Urine Blood Trace H Ur Leukocyte Esterase Trace H Urine Mucus Rare H Coronavirus (PCR) Detected A 11/11/21 11/11/21 11/11/21 17:32 17:32 17:32 WBC RBC Hgb Hct Plt Count Neutrophils # Sodium 131 L Carbon Dioxide 21 L BUN 71 H Glucose 117 H POC Glucose (mg/dL) Plasma Lactic Acid Tunde 2.2 H* Calcium Alkaline Phosphatase Troponin I 0.046 H* Total Protein 5.3 L Albumin 2.9 L Urine Ketones Urine Blood Ur Leukocyte Esterase Urine Mucus Coronavirus (PCR) 11/11/21 11/12/21 11/12/21 22:11 01:01 02:20 WBC RBC Hgb Hct Plt Count Neutrophils # Sodium Carbon Dioxide BUN Glucose POC Glucose (mg/dL) Plasma Lactic Acid Tunde 4.0 H* 2.9 H* Calcium Alkaline Phosphatase Troponin I 0.149 H* Total Protein Albumin Urine Ketones Urine Blood Ur Leukocyte Esterase Urine Mucus Coronavirus (PCR) 11/12/21 11/12/21 11/12/21 05:03 05:03 05:03 WBC 18.8 H RBC 3.20 L Hgb 9.5 L D Hct 28.6 L Plt Count Neutrophils # 16.0 H Sodium 129 L Carbon Dioxide 18 L BUN 81 H Glucose 107 H POC Glucose (mg/dL) Plasma Lactic Acid Tunde Calcium 7.5 L Alkaline Phosphatase 35 L Troponin I 0.155 H* Total Protein 4.4 L Albumin 2.3 L Urine Ketones Urine Blood Ur Leukocyte Esterase Urine Mucus Coronavirus (PCR) 11/12/21 11/12/21 11/12/21 05:03 06:44 07:45 WBC 17.9 H RBC 3.07 L Hgb 9.1 L Hct 27.9 L Plt Count 40 L D Neutrophils # 15.8 H Sodium Carbon Dioxide BUN Glucose POC Glucose (mg/dL) 117 H Plasma Lactic Acid Tunde 2.3 H* Calcium Alkaline Phosphatase Troponin I Total Protein Albumin Urine Ketones Urine Blood Ur Leukocyte Esterase Urine Mucus Coronavirus (PCR) 11/12/21 07:45 WBC RBC Hgb Hct Plt Count Neutrophils # Sodium 130 L Carbon Dioxide 19 L BUN 80 H Glucose 103 H POC Glucose (mg/dL) Plasma Lactic Acid Tunde Calcium 7.5 L Alkaline Phosphatase Troponin I Total Protein Albumin Urine Ketones Urine Blood Ur Leukocyte Esterase Urine Mucus Coronavirus (PCR) - Diagnostic Findings CT scan - chest: image reviewed (No evidence of pulmonary embolism/COPD) Assessment and Plan Assessment: Impression: Acute GI bleeding, most likely upper GI in nature, exacerbated by eliquis, recently given for DVT and pulmonary embolism secondary provoked by COVID-19 infection not to mention the patient has underlying bladder cancer. Recent history of COVID-19 infection continues to have positive PCR. History of DVT History of pulmonary embolism Elevated troponin Acute kidney injury Acute blood loss anemia Positive Hemoccult. History of bladder cancer status post chemotherapy Recommendation: Continue present supportive care measures Transfuse for hemoglobin below 7 Continue Protonix 40 mg IV push twice a day Consider transferring the patient to a tertiary care center or to [facility] for GI evaluation. If GI feels that the patient has absolute contraindication to anticoagulation therapy, may have to consider vascular evaluation for IVC filter placement. Since we have no GI available and no EGD is being considered at this point, strongly recommended transfer if possible. Discussed the recommendation of transfer with the patient and his family at bedside and his admitting physician will be notified. By nurse taking care of the patient Time with Patient: Greater than 30
[2021-11-12 12:19] LABS: Appearance,Urine Clear (Clear); Bilirubin,Urine Negative (Negative); Blood,Urine Negative (Negative); Color,Urine Light Yellow; Glucose,Urine (UA) Negative (Negative); Ketones,Urine Negative (Negative); Leukocyte Esterase,Urine Moderate (Negative); Mucus,Urine Rare /hpf; Nitrite,Urine Negative (Negative); Protein,Urine Negative (Negative); RBC,Urine 1 /hpf (0-5); Specific Gravity,Urine 1.024 (1.001-1.035); Urobilinogen,Urine <2.0 mg/dL (<2.0); WBC,Urine 15 /hpf (0-5)
[2021-11-12] MEDS ORDERED: Potassium Replacement Protocol 1 EACH MISC MISCELLANE PRN (14:00)
[2021-11-12] MEDS ORDERED: POTASSIUM CHLORIDE ER 20 MEQ TAB.ER PO SCH (14:00)
[2021-11-12] MEDS: MAGNESIUM SULFATE-D5W PMX 1 GM in DEXTROSE/WATER 1 100ML.BAG IVPB SCH ×2 (14:05→15:49)
[2021-11-12 16:23] LABS: HCT 22.4 % (39.0-53.0); MCH 30.1 pg (25.0-35.0); MCHC 33.3 g/dL (31.0-37.0); MCV 90.6 fL (80.0-100.0); Mean Platelet Volume 8.8; RBC 2.48 m/uL (4.30-5.90); RDW 14.5 % (11.5-15.5); WBC 20.1 k/uL (3.8-10.6)
--- NOTE | 2021-11-12 16:35 | P.PN ---
Progress Note - Text Progress Note Date: 11/12/21 Discussion with nursing, no further bleeding since in the intensive care unit. Patient being prepared for transfer to outside facility due to need for IVC filter and active GI bleed. Recommend discontinue blood thinners including avoiding NSAIDs. Patient presented with life-threatening bleed. He is elevated risk for morbidity mortality for endoscopic procedures at this time.
[2021-11-12 16:38] LABS: Platelet Count 126 k/uL (150-450)
[2021-11-12] MEDS: KETOTIFEN 0.025% OPHTH DROPS 5 ML BTL BOTH EYES SCH ×2 (18:11→22:07)
[2021-11-13] MEDS: SODIUM CHLORIDE 0.9% 1,000 ML IV SCH ×3 (02:00→19:30)
[2021-11-13 04:46] LABS: Calcium 7.1 mg/dL (8.4-10.2); HCT 24.7 % (39.0-53.0); HGB 7.6 gm/dL (13.0-17.5); Hypochromasia Slight; MCHC 30.7 g/dL (31.0-37.0); MCV 91.3 fL (80.0-100.0); Magnesium 2.2 mg/dL (1.6-2.3); Mean Platelet Volume 8.9; Platelet Count 108 k/uL (150-450); Potassium 4.3 mmol/L (3.5-5.1); RBC 2.71 m/uL (4.30-5.90); RDW 15.3 % (11.5-15.5); WBC 23.2 k/uL (3.8-10.6)
[2021-11-13] MEDS: ATORVASTATIN 40 MG TAB PO SCH (08:39)
[2021-11-13] MEDS: TAMSULOSIN 0.4 MG CAP.ER.24H PO SCH (08:39)
[2021-11-13] MEDS: FINASTERIDE 5 MG TAB PO SCH (08:40)
[2021-11-13] MEDS: PANTOPRAZOLE 40 MG/10 ML VIAL IVP SCH ×2 (08:40→21:16)
--- NOTE | 2021-11-13 08:47 | P.PN ---
Subjective Principal diagnosis: Anemia This is an 81-year-old white male essentially admitted for anemia and elevated troponin. The patient has had treatment due to DVT and PE. The patient is awaiting transferred to [facility] suspect we do not have GI service this week. He is resting comfortably Objective - Vital Signs Vital signs: Vital Signs Temp 97.2 F L 11/13/21 04:30 Pulse 96 11/13/21 07:00 Resp 16 11/13/21 07:00 BP 99/48 11/13/21 07:00 Pulse Ox 94 L 11/13/21 07:00 FiO2 Intake & Output 11/12/21 11/13/21 11/13/21 18:59 06:59 18:59 Intake Total 2375 2078 125 Output Total 1200 935 100 Balance 1175 1143 25 Weight 101 kg 106.8 kg Intake: IV 1825 1500 125 Magnesium Sulfate-D5w Pmx 200 1 gm In Dextrose/Water 1 100ml.bag @ 100 mls/hr IVPB Q1H [facility] Rx#: [id number] Sodium Chloride 0.9% 1, 625 1500 125 000 ml @ 125 mls/hr IV . Q8H [facility] Rx#:[id number] Sodium Chloride 0.9% 1, 1000 000 ml @ 999 mls/hr IV . Q1H1M [facility] Rx#:[id number] Intake, IV Titration 550 Amount Sodium Chloride 0.9% 1, 550 000 ml @ 999 mls/hr IV . Q1H1M [facility] Rx#:[id number] Oral 300 Blood Product 278 Rc Pheresis 2 As3 Unit 278 [id number] Output: Urine 1200 935 100 Other: Voiding Method Indwelling Catheter Indwelling Catheter - Constitutional General appearance: Present: obese - EENT Eyes: Absent: abnormal pupil - Neck Neck: Absent: lymphadenopathy - Respiratory Respiratory: bilateral: CTA - Cardiovascular Rhythm: regular Heart sounds: normal: S1, S2 Abnormal Heart Sounds: Absent: S3 Gallop - Gastrointestinal General gastrointestinal: Present: soft. Absent: tenderness - Integumentary Integumentary: Absent: cellulitis - Labs CBC & Chem 7: 11/13/21 04:13 11/13/21 04:13 Labs: Abnormal Lab Results - Last 24 Hours (Table) 11/12/21 11/12/21 11/12/21 Range/Units 07:45 11:35 16:00 WBC 20.1 H (3.8-10.6) k/uL RBC 2.48 L (4.30-5.90) m/uL Hgb 7.5 L D (13.0-17.5) gm/dL Hct 22.4 L (39.0-53.0) % MCHC (31.0-37.0) g/dL Plt Count 40 L D 126 L D (150-450) k/uL Neutrophils # 15.8 H (1.3-7.7) k/uL Sodium (137-145) mmol/L Chloride (98-107) mmol/L Carbon Dioxide (22-30) mmol/L BUN (9-20) mg/dL Glucose (74-99) mg/dL Calcium (8.4-10.2) mg/dL Ur Leukocyte Esterase Moderate H (Negative) Urine WBC 15 H (0-5) /hpf Urine Mucus Rare H (None) /hpf Crossmatch 11/12/21 11/13/21 11/13/21 Range/Units 19:09 04:13 04:13 WBC 23.2 H (3.8-10.6) k/uL RBC 2.71 L (4.30-5.90) m/uL Hgb 7.6 L (13.0-17.5) gm/dL Hct 24.7 L (39.0-53.0) % MCHC 30.7 L (31.0-37.0) g/dL Plt Count 108 L (150-450) k/uL Neutrophils # (1.3-7.7) k/uL Sodium 132 L (137-145) mmol/L Chloride 113 H (98-107) mmol/L Carbon Dioxide 15 L (22-30) mmol/L BUN 65 H (9-20) mg/dL Glucose 106 H (74-99) mg/dL Calcium 7.1 L (8.4-10.2) mg/dL Ur Leukocyte Esterase (Negative) Urine WBC (0-5) /hpf Urine Mucus (None) /hpf Crossmatch See Detail Microbiology - Last 24 Hours (Table) 11/11/21 17:32 Blood Culture - Preliminary Blood No Growth after 24 hours 11/12/21 11:35 Urine Culture - Preliminary Urine,Voided Assessment and Plan (1) Guaiac positive stools Current Visit: Yes Status: Acute Code(s): R19.5 - OTHER FECAL ABNORMALITIES SNOMED Code(s): 30359608 (2) Anemia due to acute blood loss Current Visit: Yes Status: Acute Code(s): D62 - ACUTE POSTHEMORRHAGIC ANEMIA SNOMED Code(s): 491416895 (3) COVID-19 Current Visit: Yes Status: Acute Code(s): U07.1 - COVID-19 SNOMED Code(s): 959211449 (4) Dehydration Current Visit: Yes Status: Acute Code(s): E86.0 - DEHYDRATION SNOMED Code(s): 22918247 (5) History of DVT (deep vein thrombosis) Current Visit: Yes Status: Acute Code(s): Z86.718 - PERSONAL HISTORY OF OTHER VENOUS THROMBOSIS AND EMBOLISM SNOMED Code(s): 807549841 (6) Hypotension Current Visit: Yes Status: Acute Code(s): I95.9 - HYPOTENSION, UNSPECIFIED SNOMED Code(s): 05548587 (7) Lactic acidosis Current Visit: Yes Status: Acute Code(s): E87.2 - ACIDOSIS SNOMED Code(s): 00922112 (8) Leukocytosis Current Visit: Yes Status: Acute Code(s): D72.829 - ELEVATED WHITE BLOOD CELL COUNT, UNSPECIFIED SNOMED Code(s): 685190378 (9) Orthostatic hypotension Current Visit: Yes Status: Acute Code(s): I95.1 - ORTHOSTATIC HYPOTENSION SNOMED Code(s): 41903000 (10) Sinus tachycardia Current Visit: Yes Status: Acute Code(s): R00.0 - TACHYCARDIA, UNSPECIFIED SNOMED Code(s): 41388256 Plan: Essentially awaiting transfer to [facility]. Status post 1 unit PRBC. I suspect he might need another transfusion we will follow serial CBC. See orders otherwise
[2021-11-13] MEDS: KETOTIFEN 0.025% OPHTH DROPS 5 ML BTL BOTH EYES SCH ×2 (09:16→21:12)
--- NOTE | 2021-11-13 09:37 | P.PN ---
Subjective Progress Note Date: 11/13/21 Patient has a known history history of hypertension and bladder cancer with recent treatment of chemotherapy 6 months ago. Since completing chemotherapy he a pulmonary embolism and right DVT he is on Eliquis. Patient was recently hospitalized in [place] around 2 weeks ago treated for Covid. Patient pr esented to the ER yesterday with complaints of blood in stool weakness, nausea or vomiting and dizziness. Patient was found to have hypotension and positive occult. He been consulted for elevated troponins. Troponins 0.046, 0.149, 0.155. EKG shows sinus tachycardia. His echocardiogram shows a normal LV function with an EF of 55-60% and mild aortic stenosis. Acute coronary artery syndrome has been ruled out. Elevated troponins most likely secondary to acute kidney injury. Patient seen this morning resting comfortably in bed. Blood pressure 101/57 heart rate 95 oxygen 97% on room air. He has not had any black tarry stools. Eliquis remains on hold due to thrombocytopenia and positive occult. Due to anticoagulation on hold, recent pulmonary embolism and DVT patient is transferred to [facility] for possible IVC filter. Hemoglobin today 7.6 platelets 108 sodium 132 potassium 4.3 BUN 65 creatinine 1.0. Transfer has been set up, just awaiting an open bed. Objective - Vital Signs Vital signs: Vital Signs Temp 97.2 F L 11/13/21 04:30 Pulse 96 11/13/21 07:00 Resp 16 11/13/21 07:00 BP 99/48 11/13/21 07:00 Pulse Ox 94 L 11/13/21 07:00 FiO2 Intake & Output 11/12/21 11/13/21 11/13/21 18:59 06:59 18:59 Intake Total 2375 2078 125 Output Total 1200 935 100 Balance 1175 1143 25 Weight 101 kg 106.8 kg Intake: IV 1825 1500 125 Magnesium Sulfate-D5w Pmx 200 1 gm In Dextrose/Water 1 100ml.bag @ 100 mls/hr IVPB Q1H [facility] Rx#: [id number] Sodium Chloride 0.9% 1, 625 1500 125 000 ml @ 125 mls/hr IV . Q8H [facility] Rx#:[id number] Sodium Chloride 0.9% 1, 1000 000 ml @ 999 mls/hr IV . Q1H1M [facility] Rx#:[id number] Intake, IV Titration 550 Amount Sodium Chloride 0.9% 1, 550 000 ml @ 999 mls/hr IV . Q1H1M [facility] Rx#:[id number] Oral 300 Blood Product 278 Rc Pheresis 2 As3 Unit 278 [id number] Output: Urine 1200 935 100 Other: Voiding Method Indwelling Catheter Indwelling Catheter - Exam PHYSICAL EXAM: Limited due to positive Covid VITAL SIGNS: Reviewed. GENERAL: Well-developed in no acute distress. HEENT: Head is normocephalic. Pupils are equal, round. Sclerae anicteric. Mucous membranes of the mouth are moist. NECK: Supple. No JVD or thyromegaly RESPIRATORY: Respirations even and unlabored. Lungs diminished to auscultation bilaterally. CARDIO: Regular rate and rhythm. S1 and S2 heard. No murmur or gallops. EXTREMITIES: Normal range of motion. No clubbing or cyanosis. Peripheral pulses intact. Negative for bilateral lower extremity edema NEURO: Orientated to person, time, mood is appropriate - Labs CBC & Chem 7: 11/13/21 04:13 11/13/21 04:13 Labs: Abnormal Lab Results - Last 24 Hours (Table) 11/12/21 11/12/21 11/12/21 Range/Units 11:35 16:00 19:09 WBC 20.1 H (3.8-10.6) k/uL RBC 2.48 L (4.30-5.90) m/uL Hgb 7.5 L D (13.0-17.5) gm/dL Hct 22.4 L (39.0-53.0) % MCHC (31.0-37.0) g/dL Plt Count 126 L D (150-450) k/uL Sodium (137-145) mmol/L Chloride (98-107) mmol/L Carbon Dioxide (22-30) mmol/L BUN (9-20) mg/dL Glucose (74-99) mg/dL Calcium (8.4-10.2) mg/dL Ur Leukocyte Esterase Moderate H (Negative) Urine WBC 15 H (0-5) /hpf Urine Mucus Rare H (None) /hpf Crossmatch See Detail 11/13/21 11/13/21 Range/Units 04:13 04:13 WBC 23.2 H (3.8-10.6) k/uL RBC 2.71 L (4.30-5.90) m/uL Hgb 7.6 L (13.0-17.5) gm/dL Hct 24.7 L (39.0-53.0) % MCHC 30.7 L (31.0-37.0) g/dL Plt Count 108 L (150-450) k/uL Sodium 132 L (137-145) mmol/L Chloride 113 H (98-107) mmol/L Carbon Dioxide 15 L (22-30) mmol/L BUN 65 H (9-20) mg/dL Glucose 106 H (74-99) mg/dL Calcium 7.1 L (8.4-10.2) mg/dL Ur Leukocyte Esterase (Negative) Urine WBC (0-5) /hpf Urine Mucus (None) /hpf Crossmatch Microbiology - Last 24 Hours (Table) 11/11/21 17:32 Blood Culture - Preliminary Blood No Growth after 24 hours 11/12/21 11:35 Urine Culture - Preliminary Urine,Voided Assessment and Plan Assessment: Elevated troponins probably related to acute kidney injury Hypotension Anemia due to acute blood loss Thrombocythemia Positive occult Covid in 19 History of DVT Hypertension Plan: Continue with current cardiac medications Further recommendations on Eliquis per edger operator Echo obtained and reviewed Continue with strict I's and O's and daily weights Continue telemetry monitoring Further recommendations based on clinical course The above impression and plan of care have been discussed and directed by the signing physician. Alise Martínez, nurse practitioner, acting as scribe for sign ing physician.
[2021-11-13 10:25] LABS: HGB 7.5 gm/dL (13.0-17.5)
--- NOTE | 2021-11-13 11:36 | P.GSCN ---
History of Present Illness Consult date: 11/13/21 Reason for Consult: IVC filter placement Requesting physician: Gena Ramon History of present illness: Pleasant 81-year-old male who presented to the emergency department on 08/12/2021 with complaints of generalized weakness, nausea and vomiting. The patient has a past medical history including bladder cancer status post chemo, hypertension, pulmonary embolism and right lower extremity DVT, and former smoker. Patient was seen in the [facility] 10/31/2021 with complaints of right lower leg swelling, at that time he was diagnosed with a right lower extremity deep vein thrombosis and pulmonary embolism. He was also diagnosed with COVID-19 infection. He was started on Eliquis and his curr ent dose was 5 mg twice a day. As part of his workup in the emergency department they did a chest CT that was negative for pulmonary embolism. On admission he had a hemoglobin of 12.5, during the hospitalization he has had several dark black/maroon colored bowel movements with a drop in his hemoglobin to 7.6 today. He is currently in the ICU. His last bowel movement was yesterday, he has had no further bleeding or black stool since then. Unfortunately there is no gastroenterology in-house, general surgery has been consulted for GI bleed however there is no plans for endoscopic evaluation. Patient is currently awaiting transfer to [facility] for GI services. In the meantime vascular surgery was consulted for IVC filter placement due to GI bleed and recent DVT. Apparently patient also had elevated troponin on admission, he was seen by cardiology who felt that it was related to acute kidney injury. No further workup from them. He did have an echocardiogram with an EF of 55-60%. Patient currently denies any abdominal pain, nausea or vomiting. He is denying any chest pain, shortness of breath, he does very lethargic and reporting feeling weak. Review of Systems A 14 point review systems was completed all pertinent positives and negatives as stated in the HPI. Past Medical History Past Medical History: Cancer, Hypertension Additional Past Medical History / Comment(s): kidney stones, tonsillectomy, bladder cancer History of Any Multi-Drug Resistant Organisms: None Reported Past Surgical History: No Surgical Hx Reported Past Anesthesia/Blood Transfusion Reactions: No Reported Reaction Smoking Status: Former smoker - Past Family History Father Family Medical History: Cancer Additional Family Medical History / Comment(s): colon cancer Brother(s) Family Medical History: Cancer Sister(s) Family Medical History: Cancer Medications and Allergies Home Medications Medication Instructions Recorded Confirmed Type Apixaban [Eliquis] 5 mg PO BID 11/11/21 11/11/21 History Atorvastatin Calcium [Lipitor] 40 mg PO DAILY 11/11/21 11/11/21 History Dutasteride 0.5 mg PO DAILY 11/11/21 11/11/21 History Glucosam/Yoav-Msm1/C/Alan/Bosw 1 tab PO DAILY 11/11/21 11/11/21 History [Glucosamine-Chondroitin Tablet] Ibuprofen [Motrin] 800 mg PO Q8H PRN 11/11/21 11/11/21 History Olopatadine HCl [Pataday Once 1 drop BOTH EYES BID 11/11/21 11/11/21 History Daily Relief] Ondansetron [Zofran] 4 mg PO TID PRN 11/11/21 11/11/21 History Sildenafil Citrate 100 mg PO DAILY PRN 11/11/21 11/11/21 History Tamsulosin [Flomax] 0.4 mg PO DAILY 11/11/21 11/11/21 History Testosterone Cypionate 200 mg IM Q30D 11/11/21 11/11/21 History [Depo-Testosterone] hydroCHLOROthiazide [Hydrodiuril] 12.5 mg PO DAILY 11/11/21 11/11/21 History lisinopriL [Zestril] 2.5 mg PO DAILY 11/11/21 11/11/21 History Allergies Allergy/AdvReac Type Severity Reaction Status Date / Time No Known Allergies Allergy Verified 11/11/21 18:06 Surgical - Exam Vital Signs Temp Pulse Resp BP Pulse Ox 97.4 F L 126 H 20 108/57 96 11/11/21 15:16 11/11/21 15:16 11/11/21 15:16 11/11/21 15:16 11/11/21 15:16 General appearance: The patient is alert, oriented, appears in no acute distress. Obese. HET: Head is normocephalic and atraumatic. Pupils are equal and reactive. Neck: Supple without lymphadenopathy. Trachea midline. Heart: S1 S2. Regular rate and rhythm. Lungs: Clear to auscultation bilaterally. Abdomen: Soft, nontender, nondistended. Extremities: Normal skin color and turgor. Bilateral lower extremity pedal edema. Good capillary refill bilateral. Neurological: No focal deficits. Alert and oriented 3. Results - Labs 11/13/21 04:13 11/13/21 04:13 Abnormal Lab Results - Last 24 Hours (Table) 11/12/21 11/12/21 11/12/21 Range/Units 11:35 16:00 19:09 WBC 20.1 H (3.8-10.6) k/uL RBC 2.48 L (4.30-5.90) m/uL Hgb 7.5 L D (13.0-17.5) gm/dL Hct 22.4 L (39.0-53.0) % MCHC (31.0-37.0) g/dL Plt Count 126 L D (150-450) k/uL Sodium (137-145) mmol/L Chloride (98-107) mmol/L Carbon Dioxide (22-30) mmol/L BUN (9-20) mg/dL Glucose (74-99) mg/dL Calcium (8.4-10.2) mg/dL Ur Leukocyte Esterase Moderate H (Negative) Urine WBC 15 H (0-5) /hpf Urine Mucus Rare H (None) /hpf Crossmatch See Detail 11/13/21 11/13/21 Range/Units 04:13 04:13 WBC 23.2 H (3.8-10.6) k/uL RBC 2.71 L (4.30-5.90) m/uL Hgb 7.6 L (13.0-17.5) gm/dL Hct 24.7 L (39.0-53.0) % MCHC 30.7 L (31.0-37.0) g/dL Plt Count 108 L (150-450) k/uL Sodium 132 L (137-145) mmol/L Chloride 113 H (98-107) mmol/L Carbon Dioxide 15 L (22-30) mmol/L BUN 65 H (9-20) mg/dL Glucose 106 H (74-99) mg/dL Calcium 7.1 L (8.4-10.2) mg/dL Ur Leukocyte Esterase (Negative) Urine WBC (0-5) /hpf Urine Mucus (None) /hpf Crossmatch Microbiology - Last 24 Hours (Table) 11/11/21 17:32 Blood Culture - Preliminary Blood No Growth after 24 hours 11/12/21 11:35 Urine Culture - Preliminary Urine,Voided Diabetes panel 11/13/21 Range/Units 04:13 Sodium 132 L (137-145) mmol/L Potassium 4.3 (3.5-5.1) mmol/L Chloride 113 H (98-107) mmol/L Carbon Dioxide 15 L (22-30) mmol/L BUN 65 H (9-20) mg/dL Creatinine 1.02 (0.66-1.25) mg/dL Glucose 106 H (74-99) mg/dL Calcium 7.1 L (8.4-10.2) mg/dL Calcium panel 11/13/21 Range/Units 04:13 Calcium 7.1 L (8.4-10.2) mg/dL Pituitary panel 11/13/21 Range/Units 04:13 Sodium 132 L (137-145) mmol/L Potassium 4.3 (3.5-5.1) mmol/L Chloride 113 H (98-107) mmol/L Carbon Dioxide 15 L (22-30) mmol/L BUN 65 H (9-20) mg/dL Creatinine 1.02 (0.66-1.25) mg/dL Glucose 106 H (74-99) mg/dL Calcium 7.1 L (8.4-10.2) mg/dL Adrenal panel 11/13/21 Range/Units 04:13 Sodium 132 L (137-145) mmol/L Potassium 4.3 (3.5-5.1) mmol/L Chloride 113 H (98-107) mmol/L Carbon Dioxide 15 L (22-30) mmol/L BUN 65 H (9-20) mg/dL Creatinine 1.02 (0.66-1.25) mg/dL Glucose 106 H (74-99) mg/dL Calcium 7.1 L (8.4-10.2) mg/dL - Imaging Comments: Chest CTA negative for pulmonary embolism Venous duplex bilateral lower extremities pending Assessment and Plan Assessment: 1. Recent diagnosis of right lower extremity DVT on Eliquis (currently on hold) 2. History of pulmonary embolism 3. GI bleed 4. COVID-19 infection 5. History of bladder cancer Plan: 1. Keep nothing by mouth 2. Discussed with patient and there is no bed available at this time for transfer to tertiary center for GI evaluation. Recommendation from ICU is to place IVC filter due to intolerance of anticoagulation and recent GI bleed 3. Patient is scheduled for IVC filter placement 4. Hold anticoagulation Thank you for this consultation, we will continue to follow. The impression and plan of care has been dictated as directed. I performed a history and examination of this patient, discussed the same with the dictator. I agree with the dictator's note ,documented as a scribe. Any additional findings or plans will be noted.
--- NOTE | 2021-11-13 11:44 | US ---
EXAMINATION TYPE: US venous doppler duplex LE DATE OF EXAM: 11/13/2021 11:15 AM COMPARISON: NONE CLINICAL HISTORY: 81-year-old male with history of DVT, Covid. SIDE PERFORMED: Bilateral TECHNIQUE: The lower extremity deep venous system is examined utilizing real time linear array sonog sarita with graded compression, doppler sonography and color-flow sonography. FINDINGS: VESSELS IMAGED: Common Femoral Vein Deep Femoral Vein Greater Saphenous Vein * Femoral Vein Popliteal Vein Small Saphenous Vein * Proximal Calf Veins (* superficial vessels) Right Leg: Internal echoes seen from CFV down through the prox calf veins. Compressions not performe d due to echoes seen. Little to no color flow seen. Some flow seen in distal popliteal vein. Left Leg: Internal echoes seen within the popliteal vein and prox calf veins. Popliteal vein does no t appear to compress. Color defect seen in popliteal vein and prox calf veins. IMPRESSION: Bilateral lower extremity DVTs. Near occlusive throughout the right lower extremity from the common f emoral deep vein down into the upper calf pain. Also involving the left popliteal and upper calf vein . The left-sided DVT appears occlusive.
[2021-11-13] MEDS ORDERED: IV FLUID CONTINUATION 1,000 ML IV ONE (12:04)
[2021-11-13] MEDS ORDERED: LIDOCAINE 1% INJ 10MG/ML (30 ML VIAL-PF) SQ ONE (12:19)
[2021-11-13] MEDS ORDERED: IOPAMIDOL-250 100ML BTL IV ONE (12:19)
--- NOTE | 2021-11-13 12:21 | P.PN ---
Subjective Progress Note Date: 11/13/21 Principal diagnosis: Acute GI bleeding and acute blood loss anemia This is an 81-year-old white male with history of multiple medical problems including bladder cancer, patient received chemotherapy for his bladder cancer. And this was about 6 months ago. In the last 2 weeks, patient was diagnosed with COVID-19 infection, patient presented with acute DVT and pulmonary emboli sm, and apparently he was found to have positive COVID-19 infection. Patient was treated with anticoagulation therapy, and he was on anticoagulations therapy for the last 2 weeks. Yesterday the patient came into the ER with multiple constitutional symptoms including weakness, fatigue, intermittent episodes of nausea and vomiting. Unable to hold anything down. Patient was feeling dizzy, apparently he was discharged from the hospital in [place] about one week ago. Patient was discharged on anticoagulations therapy and the patient at this time he is having black tarry stools, and he had positive Hemoccult in the ER. His initial hemoglobin on presentation was 12.4, however overnight the patient had more episodes of black tarry stools, and his hemoglobin is down to 9.1 this morning His anticoagulations therapy is presently on hold. Patient was seen by general surgery on consultation, and seems to be concerned about his elevated troponin. Patient was seen by cardiology, who felt that his elevated troponin is probably related to his acute kidney injury. At any rate the patient is now in the ICU, he seems to be comfortable, however the patient will definitely need further workup and considering that we don't have any GI coverage available, I strongly suggested to his family and to the patient to consider transfer to another institution/[facility] if possible. Where GI coverage is available. In the meantime we'll continue to hold his anticoagulations medication and will have to decide whether the patient will need IVC filter placement since he just recently had DVT and pulmonary embolism. CT angiogram of the chest on this admission showed no evidence of thromboembolic disease. Reevaluated today on 11/13/21, patient remains in the ICU, clinically no active bleeding is going on, patient did receive a unit of packed RBCs yesterday hemoglobin today is 7.6. Patient has borderline blood pressure, received fluid boluses and received a unit of packed RBCs his urine output seems to be reasonable. Blood pressure today is reasonable and within normal range. Freedom harrell the patient is yet to be transferred to [facility], no GI coverage is available at our institution, and dad general surgeon on the case is reluctant to proceed with EGD although the patient was cleared by cardiology and felt that his troponin elevation is not significant and not clinically significant. At any rate the patient is waiting to be transferred to [facility], accepted but no bed available. In the meantime I'm very concerned that the patient had very recent DVT and pulmonary embolism, and we cannot place the patient on any anticoagulation therapy at this point, hence I'm recommending vascular surgery to evaluate for IVC filter placement for now. Hence a vascular surgery consultation was initiated. Patient denies any shortness of breath no cough no wheezing he had no bowel movement today, and his hemoglobin again today as noted earlier 7.6 electrolytes are normal renal profile is normal except for elevated BUN of 65. His Doppler today showed bilateral lower extremity DVT, near occlusive throughout the right lower extremity from the common femoral deep vein down to the upper calf veins. Also involving the left popliteal and the upper calf veins on the left side. Left side seems to be occlusive Objective - Vital Signs Vital signs: Vital Signs Temp 97.5 F L 11/13/21 08:00 Pulse 101 H 11/13/21 11:00 Resp 27 H 11/13/21 11:00 BP 115/56 11/13/21 11:00 Pulse Ox 97 11/13/21 11:00 FiO2 Intake & Output 11/12/21 11/13/21 11/13/21 18:59 06:59 18:59 Intake Total 2375 2078 825 Output Total 1200 935 525 Balance 1175 1143 300 Weight 101 kg 106.8 kg Intake: IV 1825 1500 625 Magnesium Sulfate-D5w Pmx 200 1 gm In Dextrose/Water 1 100ml.bag @ 100 mls/hr IVPB Q1H [facility] Rx#: [id number] Sodium Chloride 0.9% 1, 625 1500 625 000 ml @ 125 mls/hr IV . Q8H [facility] Rx#:[id number] Sodium Chloride 0.9% 1, 1000 000 ml @ 999 mls/hr IV . Q1H1M [facility] Rx#:[id number] Intake, IV Titration 550 Amount Sodium Chloride 0.9% 1, 550 000 ml @ 999 mls/hr IV . Q1H1M [facility] Rx#:[id number] Oral 300 200 Blood Product 278 Rc Pheresis 2 As3 Unit 278 [id number] Output: Urine 1200 935 525 Other: Voiding Method Indwelling Catheter Indwelling Catheter Indwelling Catheter - Exam Physical Exam: Revealed an 81-year-old white male in no distress, looks frail and chronically ill. Not in respiratory distress Head: Atraumatic, normocephalic. HEENT:[Neck is supple.] [No neck masses.] [No thyromegaly.] [No JVD.] Pale conjunctivae, nonicteric. Dry mucous membranes. Chest: Symmetrical chest expansion clear throughout no crackles or rhonchi or wheezes Cardiac Exam: [Normal S1 and S2, no S3 gallop, no murmur.] Abdomen: [Soft, nontender, no megaly, no rebound, no guarding, normal bowel sounds.] Extremities: [No clubbing, 1+ bipedal edema noted. no cyanosis.] Good pulses bilaterally. Neurological Exam: [No focal neurologic deficit.] No gross focal deficits. Psychiatric: Normal mood, affect and normal mental status examination. Skin: No rashes. - Labs CBC & Chem 7: 11/13/21 04:13 11/13/21 04:13 Labs: Abnormal Lab Results - Last 24 Hours (Table) 11/12/21 11/12/21 11/12/21 Range/Units 11:35 16:00 19:09 WBC 20.1 H (3.8-10.6) k/uL RBC 2.48 L (4.30-5.90) m/uL Hgb 7.5 L D (13.0-17.5) gm/dL Hct 22.4 L (39.0-53.0) % MCHC (31.0-37.0) g/dL Plt Count 126 L D (150-450) k/uL Sodium (137-145) mmol/L Chloride (98-107) mmol/L Carbon Dioxide (22-30) mmol/L BUN (9-20) mg/dL Glucose (74-99) mg/dL Calcium (8.4-10.2) mg/dL Ur Leukocyte Esterase Moderate H (Negative) Urine WBC 15 H (0-5) /hpf Urine Mucus Rare H (None) /hpf Crossmatch See Detail 11/13/21 11/13/21 Range/Units 04:13 04:13 WBC 23.2 H (3.8-10.6) k/uL RBC 2.71 L (4.30-5.90) m/uL Hgb 7.6 L (13.0-17.5) gm/dL Hct 24.7 L (39.0-53.0) % MCHC 30.7 L (31.0-37.0) g/dL Plt Count 108 L (150-450) k/uL Sodium 132 L (137-145) mmol/L Chloride 113 H (98-107) mmol/L Carbon Dioxide 15 L (22-30) mmol/L BUN 65 H (9-20) mg/dL Glucose 106 H (74-99) mg/dL Calcium 7.1 L (8.4-10.2) mg/dL Ur Leukocyte Esterase (Negative) Urine WBC (0-5) /hpf Urine Mucus (None) /hpf Crossmatch Microbiology - Last 24 Hours (Table) 11/11/21 17:32 Blood Culture - Preliminary Blood No Growth after 24 hours 11/12/21 11:35 Urine Culture - Preliminary Urine,Voided Assessment and Plan Assessment: Impression: Acute GI bleeding, most likely upper GI in nature, exacerbated by eliquis, recently given for DVT and pulmonary embolism secondary provoked by COVID-19 infection not to mention the patient has underlying bladder cancer. Recent history of COVID-19 infection continues to have positive PCR. History of DVT History of pulmonary embolism Elevated troponin Acute kidney injury Acute blood loss anemia Positive Hemoccult. History of bladder cancer status post chemotherapy Recommendation: Considering no plans for EGD and considering the patient had recent DVT and pulmonary embolism and positive DVT on this admission I will recommend vascular surgery evaluation for IVC filter placement. Strongly recommend transfer the patient as soon as a bed is available for GI evaluation. Discussed his condition with him and with the at bedside. Continue present supportive care measures Transfuse for hemoglobin below 7 Continue Protonix 40 mg IV push twice a day Prognosis is relatively guarded Time with Patient: Less than 30
--- NOTE | 2021-11-13 12:39 | P.OP ---
Date of Procedure: 11/13/21 Description of Procedure: Preoperative diagnosis: Likely GI bleed, anemia, DVT, previous PE, inability to anticoagulate Postoperative diagnosis: Same Procedure: [#1 ultrasound guided left common femoral vein access #2 left iliofemoral venogram #3 venacavogram #4 IVC filter placement] Surgeon: Dawna Castro D.O. EBL: [5 mL] IV fluids: [See records] Urine output: [See records] Drains: [None] Complications: [None immediately apparent] Condition: [Stable but critical] Operative indication and findings: [The patient is an 81-year-old male who presented with worsening anemia likely due to a GI bleed, he was noted to have previous DVT and PE recently diagnosed after his Covid. He was utilizing oral anticoagulation. This time it is recommended he discontinue oral anticoagulation due to these findings. There is attempts for transfer due to no GI at this facility. Given these findings will plan to place an IVC filter. Risks and benefits were discussed.] Procedure in detail: [Patient was taken to the special suite and placed in supine position. Bilateral groins are prepped and draped in usual sterile fashion. A preprocedure timeout was performed, all parties are in agreement. The ultrasound was utilized, the right common femoral vein was identified and there was evidence of acute thrombus. The left common femoral vein was identified it was patent and compressible visualized thrombus. Ultrasound was used and the left common femoral vein was accessed after proper anesthetization of the skin. Seldinger technique was used to place a 6-Maltese sheath. A left iliofemoral venogram was performed showing no evidence of thrombus. Catheters and wires at least access vena cava. The filter sheath was placed and a venacavogram was performed to identify the renal vessels. The filter was then deployed in standard fashion below the renal veins. Confirmatory venogram was performed with adequate positioning. Catheters and wires were removed. Pressure was held until hemostasis was adequate. The patient tolerated well.]
--- NOTE | 2021-11-13 12:47 | IR ---
Fluoroscopy HISTORY: DVT 1.1 minutes fluoroscopy time supplied to the referring clinician. 113 intraoperative C-arm images do cument the procedure. See dictated report from vascular surgery.
--- NOTE | 2021-11-13 12:56 | P.PN ---
Progress Note - Text Progress Note Date: 11/13/21 Patient out of intensive care unit receiving IVC filter.
[2021-11-13] MEDS: hydroCHLOROthiazide 12.5 MG CAP PO SCH (13:55)
[2021-11-13] MEDS ORDERED: NOREPINEPHRINE 4 MG in SODIUM CHLORIDE 0.9% 250 ML IV SCH (14:00)
[2021-11-13 15:25] LABS: ABG Base Excess -14.5 mmol/L; ABG HCO3 12 mmol/L (21-25); ABG Oxygen Saturation 99.2 % (94-97); ABG PCO2 24 mmHg (35-45); ABG PH 7.31 (7.35-7.45); ABG PO2 163 mmHg (83-108); ABG TCO2 13 mmol/L (19-24); Allen Test Performed? Yes
[2021-11-13] MEDS ORDERED: SODIUM BICARB 8.4% 50 ML SYR (1 MEQ/ML) IV STA ×4 (15:32→20:01)
--- NOTE | 2021-11-13 15:39 | XR ---
EXAMINATION TYPE: XR chest 1V portable DATE OF EXAM: 11/13/2021 Comparison: 11/11/2021 Clinical History: 81-year-old male line placement Findings: Heart normal size. Aorta and pulmonary vasculature within normal limits. Patchy left basilar opacity. Right subclavian CVC tip seen into the right atrium. Remaining lungs are clear. Impression: 1. Right subclavian CVC tip in the right atrium. 2. Possible development of a trace left effusion with adjacent atelectasis or some patchy infiltrate.
--- NOTE | 2021-11-13 15:48 | P.PN ---
Subjective Progress Note Date: 11/13/21 CHIEF COMPLAINT: GI bleed HISTORY OF PRESENT ILLNESS: The patient is a 81 year old male with bladder canc er status post chemotherapy, recent DVT with pulmonary embolism, recent COVID-19 infection who presented with GI bleed. Patient returned from procedures after IVC filter placement. I was notified by nursing that the patient had large tarry stools 2. Patient was found in the intensive care unit after central line placed per mounted police. He was hypotensive and now placed on Levophed. Blood pressures are 110s over 60s. Patient denies any abdominal pain. No reports of hematemesis. Per discussion with mounted police, patient was cleared for procedures. He is receiving another unit of packed RBCs. Last hemoglobin 7.6. REVIEW OF ORGAN SYSTEMS: CONSTITUTIONAL: No fevers or chills. RESPIRATORY: Has recent COVID-19 infection. Recent pulmonary embolism GENITOURINARY: Has bladder cancer undergoing chemoradiation. PHYSICAL EXAM: VITALS: Reviewed CONSTITUTIONAL: Well developed and in no acute distress. EYES: Conjuctivae without sclera icterus. Extraocular movements grossly intact . HEAD, EARS, NOSE, THROAT: Moist buccal mucosa. Head is atraumatic, normocephalic. Hears conversational speech. No nasal drainage. RESPIRATORY: Non-labored respirations and equal bilateral excursions. CARDIOVASCULAR: Palpable 2+ radial pulses. ABDOMEN: Non-tender. MUSCULOSKELETAL: No clubbing cyanosis. SKIN: Warm and well perfused with good skin turgor. NEUROLOGIC: Cranial nerves II through XII grossly intact. No focal or lateralizing signs. PSYCH: Appropriate affect. Alert and oriented to person, place and time. CLINCAL LABS: Reviewed. WBC on admission over 23,000. Hemoglobin on admission 12.4. Hemoglobin 9.5 down to 7.6. ECHO: Ejection fraction 55 to 60%. Systolic function is within normal limits. ASSESSMENT: 1. Gastrointestinal bleeding with hypotension 2. Recent pulmonary embolism and deep venous thrombosis on anticoagulation 3. Bladder cancer 4. COVID-19 infection 5. Elevated troponin 6. Status blood transfusions for acute blood loss anemia. PLAN: 1. He is pending transfer to outside facility due to multiple medical comorbidities. 2. Additionally, GI team not available at this institution with limited resources for tagged RBC scan as well. 3. Also agree with transfer due to limited availability of services at this institution. Objective - Vital Signs Vital signs: Vital Signs Temp 95.9 F L 11/13/21 14:33 Pulse 122 H 11/13/21 14:43 Resp 25 H 11/13/21 14:43 BP 104/25 11/13/21 14:43 Pulse Ox 97 11/13/21 11:00 FiO2 Intake & Output 11/12/21 11/13/21 11/13/21 18:59 06:59 18:59 Intake Total 2375 2078 1225 Output Total 1200 935 525 Balance 1175 1143 700 Weight 101 kg 106.8 kg Intake: IV 1825 1500 1025 Magnesium Sulfate-D5w Pmx 200 1 gm In Dextrose/Water 1 100ml.bag @ 100 mls/hr IVPB Q1H [facility] Rx#: [id number] Sodium Chloride 0.9% 1, 625 1500 625 000 ml @ 125 mls/hr IV . Q8H [facility] Rx#:[id number] Sodium Chloride 0.9% 1, 1000 000 ml @ 999 mls/hr IV . Q1H1M [facility] Rx#:[id number] Intake, IV Titration 550 Amount Sodium Chloride 0.9% 1, 550 000 ml @ 999 mls/hr IV . Q1H1M [facility] Rx#:[id number] Oral 300 200 Blood Product 278 0 Rc As-1 Unit 0 [id number] Rc Pheresis 2 As3 Unit 278 [id number] Output: Urine 1200 935 525 Other: Voiding Method Indwelling Catheter Indwelling Catheter Indwelling Catheter - Labs CBC & Chem 7: 11/13/21 20:27 11/13/21 04:13 Labs: Abnormal Lab Results - Last 24 Hours (Table) 11/12/21 11/12/21 11/13/21 Range/Units 16:00 19:09 04:13 WBC 20.1 H (3.8-10.6) k/uL RBC 2.48 L (4.30-5.90) m/uL Hgb 7.5 L D (13.0-17.5) gm/dL Hct 22.4 L (39.0-53.0) % MCHC (31.0-37.0) g/dL Plt Count 126 L D (150-450) k/uL ABG pH (7.35-7.45) ABG pCO2 (35-45) mmHg ABG pO2 (83-108) mmHg ABG HCO3 (21-25) mmol/L ABG Total CO2 (19-24) mmol/L ABG O2 Saturation (94-97) % Sodium 132 L (137-145) mmol/L Chloride 113 H (98-107) mmol/L Carbon Dioxide 15 L (22-30) mmol/L BUN 65 H (9-20) mg/dL Glucose 106 H (74-99) mg/dL Calcium 7.1 L (8.4-10.2) mg/dL Crossmatch See Detail 11/13/21 11/13/21 Range/Units 04:13 15:24 WBC 23.2 H (3.8-10.6) k/uL RBC 2.71 L (4.30-5.90) m/uL Hgb 7.6 L (13.0-17.5) gm/dL Hct 24.7 L (39.0-53.0) % MCHC 30.7 L (31.0-37.0) g/dL Plt Count 108 L (150-450) k/uL ABG pH 7.31 L (7.35-7.45) ABG pCO2 24 L (35-45) mmHg ABG pO2 163 H (83-108) mmHg ABG HCO3 12 L (21-25) mmol/L ABG Total CO2 13 L (19-24) mmol/L ABG O2 Saturation 99.2 H (94-97) % Sodium (137-145) mmol/L Chloride (98-107) mmol/L Carbon Dioxide (22-30) mmol/L BUN (9-20) mg/dL Glucose (74-99) mg/dL Calcium (8.4-10.2) mg/dL Crossmatch Microbiology - Last 24 Hours (Table) 11/11/21 17:32 Blood Culture - Preliminary Blood No Growth after 24 hours 11/12/21 11:35 Urine Culture - Preliminary Urine,Voided
--- NOTE | 2021-11-13 15:56 | P.PN ---
Progress Note - Text Progress Note Date: 11/13/21 This is a note on Scooter Ureña whom I saw earlier today, patient underwent IVC filter placement by vascular surgery, came back to the ICU, and patient was noted to be more lethargic, relatively hypotensive, requiring more fluid boluses, another unit of blood was ordered, and the patient required placement on norepinephrine for low blood pressure. Considering the patient had no central venous access, went ahead and placed a right triple-lumen catheter in the right subclavian area and went ahead and placed on arterial line/right radial arterial line. Discussed his condition with surgery on the case. I also discussed his condition with his . Updated the on his status, and sti ll waiting potentially for a bed at [facility], in the meantime the transfer team and the admitting physician Will try to find another tertiary care center which might be willing to take the patient in transfer. In the meantime repeated his ABG on 4 L nasal cannula, his pO2 was 163 pCO2 24 pH of 7.31 with low bicarb of 12. Patient will be given 1 amp of bicarb, and I believe his hypotension is causing his acidosis/metabolic acidosis. Patient is now receiving more fluid boluses, more blood will be given, and patient was started on norepinephrine. His last hemoglobin this morning was 7.6, Hemoglobin will be drawn after the unit of blood given today. Obviously the patient is deteriorating, surgery on the case is aware of his deteriorating status, considers the patient high risk for EGD and the concern is no GI is available, and no intervention could be done by surgery endoscopically if active bleeding is noted. Will have the transfer team notify the admitting physician and potentially look into another tertiary care center for transfer the meantime waiting to hear from [facility] critical care time is over 30 minutes today not including the time spent on procedures
--- NOTE | 2021-11-13 16:11 | CDI ---
Documentation Clarification Form Date: 11/13/2021 03:50:15 PM From: Iva Bailey RN, CCDS Admit Date: 11/11/2021 09:09:00 PM Patient Name: Scooter Ureña Visit Number: [id number] Discharge Date: ATTENTION: The Clinical Documentation Specialists (CDI) and [facility] Coding Staff appreciate your assistance in clarifying documentation. Please respond to the clarification below the line at the bottom and electronically sign. The CDI & [facility] Coding staff will review the response and follow-up if needed. Please note: Queries are made part of the Legal Health Record. If you have any questions, please contact the author of this message via ITS. Dr. Fermin Pedro The patient presented with the following clinical indicators. Tachycardia, hypotension Additional clarification regarding the etiology/cause of the clinical indicators is requested. History/Risk Factors: DVT, PE, COVID-19, Bladder CA, Clinical Indicators: 81-year-old male present with weakness, nausea/vomiting. he had Covid-19 2 weeks ago and tested positive on admission. 11/05 WBC: 20.1, Neutrophils 17.7, BUN 71, Creatinine 1.21, Lactic acid 2.2, 4.0, Troponin 0.046; UA; Ur Leukocyte Esterase-Trace repeat on 11/12 Ur Leukocyte esterase Moderate 11/11 VS: 108/57 126 97.4 96 % RA, 96/60 112, 18 ; 97/54 114; 88/56 110 11/11 Blood cultures: No growth after 24 hours Treatment: ICU/Telemetry monitoring Rocephin 1GM IVPB 11/11 .9 NS IV Bolus x2 11/11 and x2 11/12 In your professional opinion, please clarify if these findings signify one of the following conditions: [ ] Sepsis POA [ ] Sepsis ruled out [ ] Severe Sepsis with organ failure [ x] Sepsis with Septic Shock [ ] SIRS, without underlying infectious process [ ] Other, please specify [ ] Unable to determine SIRS Criteria: 2 or more of the following may indicate SIRS -Temperature < 96.8F (36C) or > 101.0F (38.3C) -Heart Rate > 90 bpm -Respiratory Rate > 20 breaths/min or PaCO2 < 32 mmHg -White Blood Cell Count > 12,000 or < 4,000 cells/mm3 or > 10% bands (Template Last Reviewed: May 2020) MTDD
[2021-11-13 16:15] LABS: HCT 23.3 % (39.0-53.0); HGB 7.5 gm/dL (13.0-17.5); Hypochromasia Slight; MCHC 32.1 g/dL (31.0-37.0); MCV 90.4 fL (80.0-100.0); Mean Platelet Volume 9.7; Platelet Count 124 k/uL (150-450); RBC 2.57 m/uL (4.30-5.90); RDW 15.5 % (11.5-15.5); WBC 34.6 k/uL (3.8-10.6)
--- NOTE | 2021-11-13 16:37 | CDI ---
Documentation Clarification Form Date: 11/13/2021 04:32:17 PM From: Iva Bailey RN, CCDS Admit Date: 11/11/2021 09:09:00 PM Patient Name: Scooter Ureña Visit Number: [id number] Discharge Date: ATTENTION: The Clinical Documentation Specialists (CDI) and [facility] Coding Staff appreciate your assistance in clarifying documentation. Please respond to the clarification below the line at the bottom and electronically sign. The CDI & [facility] Coding staff will review the response and follow-up if needed. Please note: Queries are made part of the Legal Health Record. If you have any questions, please contact the author of this message via ITS. Dr. Fermin Pedro Your patient has documentation of hypotension,, tachycardia positive stool occult blood and was treated with fluid bolus and Norepinephrine drip. Based on this information and the findings below, is there an additional diagnosis that is clinically appropriate for this patient? Patient history/risk factors: DVT, PE, COVID-19, Bladder CA, GI Bleeding Clinical Indicators: 81-year-old male present with weakness, nausea/vomiting, he had Covid-19, 2 weeks ago and tested positive on admission. 11/05 WBC: 20.1, Neutrophils 17.7, BUN 71, Creatinine 1.21, Lactic acid 2.2, 4.0, Troponin 0.046; UA; Ur Leukocyte Esterase-Trace repeat on 11/12 Ur Leukocyte esterase Moderate 11/11 VS: 108/57 126 97.4 96 % RA, 96/60 112, 18 ; 97/54 114; 88/56 110 11/11 HGB 12.4; 11/12 HGB 9.1, 7.5; 11/13 HGB 7.6, 7.5 11/13 VS: (123:45) 88/55 121 29 Treatment: CU/Telemetry monitoring Rocephin 1GM IVPB 11/11 .9 NS IV Bolus x2 11/11 and x 2 11/12 Levophed Drip (titrate per orders Transfused 2 units PRBS Is there an additional diagnosis that is clinically appropriate for this patient? [ ] Hypovolemic Shock [ x] Septic Shock [ ] Other, please specify [ ] Unable to determine (Template Last Reviewed: May 2020) MTDD
[2021-11-13] MEDS ORDERED: NOREPINEPHRINE 32 MG in SODIUM CHLORIDE 0.9% 218 ML IV SCH (16:45)
[2021-11-13] MEDS ORDERED: SODIUM CHLORIDE 0.9% 1,000 ML IV ONE (16:52)
[2021-11-13] MEDS ORDERED: VANCOMYCIN 1,000 MG in SODIUM CHLORIDE 0.9% 250 ML IVPB STA (16:53)
--- NOTE | 2021-11-13 17:18 | OP ---
OPERATIVE REPORT OPERATIVE REPORT: Placement of a right radial arterial line. PREOPERATIVE DIAGNOSIS: Hyp tension and GI bleeding. POSTOPERATIVE DIAGNOSIS: Hyp tension and GI bleeding. ANESTHESIA USED: None deployed. PROCEDURE DESCRIPTION: The right wrist was prepared in a sterile fashion. Drapes were applied. The right radial artery was palpated, cannulated, and a guidewire was placed. A Cook's catheter was inserted over the guidewire, and the guidewire was removed. Good blood flow and good waveform were noted. No complications. Line was secured using 3.0 silk sutures. MMODL / IJN: [id number] /
--- NOTE | 2021-11-13 17:18 | OP ---
OPERATIVE REPORT OPERATIVE REPORT: Placement of a right subclavian triple-lumen catheter. PREOPERATIVE DIAGNOSIS: Hypotension, GI bleeding. POSTOPERATIVE DIAGNOSIS: Hypotension, GI bleeding. ANESTHESIA USED: Two mL of 1% lidocaine. PROCEDURE DESCRIPTION: The patient was placed in Trendelenburg position. The area of the right subclavian region was prepared in a sterile fashion and drapes were applied. The area below the right clavicle was locally anesthetized. Then using the inferior approach, the right subclavian vein was cannulated, a guidewire was placed, and the area on the guidewire was dilated. A triple-lumen catheter was inserted over the guidewire and the guidewire was removed. Chest x-ray postoperatively showed adequate placement. There were no complications. No evidence of pneumothorax. Procedure was well tolerated. MMODL / IJN: [id number] /
--- NOTE | 2021-11-13 17:49 | P.PN ---
Progress Note - Text Progress Note Date: 11/13/21 Patient reevaluated with at bedside. Notified by nurse that requirement for pressors of levophed is increased. Patient's heart rate is in the 150s. gives additional history including 2 weeks ago being diagnosed with pulmonary embolism as well as DVT for patient. Patient is locally treated for his bladder cancer with chemotherapy only. Patient also confirms that he is not taken Motrin recently. Since in the intensive care unit, no further bloody bowel movements. Patient denied abdominal pain. Due to lack of GI coverage including restricted availability for isotope for bleeding scan, transfer to facility with GI coverage reiterated. Patient extremely high risk for morbidity and mortality with surgery as localization of bleeding not available. Recommend GI versus interventional radiology for further assessment of GI bleeding and management reviewed with patient and at bedside.
[2021-11-13] MEDS ORDERED: VANCOMYCIN 1,750 MG in SODIUM CHLORIDE 0.9% 500 ML 500 ML IVPB SCH (18:00)
[2021-11-13] MEDS ORDERED: SODIUM CHLORIDE 0.9% 50 ML with VASOPRESSIN 20 UNIT IVPB SCH ×2 (18:30)
[2021-11-13] MEDS ORDERED: PHENYLEPHRINE 40 MG in SODIUM CHLORIDE 0.9% 250 ML IV SCH (18:30)
[2021-11-13] MEDS ORDERED: propofoL 100 ML IV ONE (18:35)
[2021-11-13] MEDS ORDERED: PIPERACILLIN-TAZOBACTAM 3.375 GM in SODIUM CHLORIDE 0.9% 100 ML IVPB SCH (19:30)
[2021-11-13 19:50] LABS: ABG Base Excess -15.8 mmol/L; ABG HCO3 12 mmol/L (21-25); ABG Oxygen Saturation 99.9 % (94-97); ABG PCO2 27 mmHg (35-45); ABG PH 7.24 (7.35-7.45); ABG PO2 >400 mmHg (83-108); ABG TCO2 12 mmol/L (19-24); Allen Test Performed? Yes
--- NOTE | 2021-11-13 20:06 | XR ---
EXAMINATION TYPE: XR chest 1V portable DATE OF EXAM: 11/13/2021 CLINICAL HISTORY: Difficulty breathing has to be intubated. TECHNIQUE: Single AP portable upright view of the chest is obtained. COMPARISON: Chest x-ray from earlier today. FINDINGS: There is new endotracheal tube terminating at the aortic knob level approximately 2 to 3 c m above mono. There is new orogastric tube projecting below diaphragm. Persistent lateral left basilar opacity. Right lung remains clear. Cardiac silhouette size stable and within normal limits. Underlying scoliosis or scoliotic positioning noted. IMPRESSION: 1. New endotracheal tube and orogastric tube are satisfactory in position. 2. Persistent small left pleural effusion and associated left basilar atelectasis and/or infiltrate.
[2021-11-13] MEDS ORDERED: DEXTROSE 5% IN WATER 1,000 ML with SODIUM BICARB (1 MEQ/ML) 150 ML IV SCH (20:15)
[2021-11-13 20:49] LABS: HCT 28.1 % (39.0-53.0); MCH 28.6 pg (25.0-35.0); MCHC 32.1 g/dL (31.0-37.0); MCV 88.9 fL (80.0-100.0); Platelet Count 128 k/uL (150-450); RBC 3.16 m/uL (4.30-5.90); RDW 15.1 % (11.5-15.5); WBC 45.5 k/uL (3.8-10.6)
[2021-11-13] MEDS ORDERED: CALCIUM GLUCONATE IN NACL 2 GM in SALINE 1 100ML.BAG IVPB ONE (20:54)
[2021-11-13] MEDS ORDERED: LACTATED RINGERS 1,000 ML IV SCH (21:00)
[2021-11-13 21:12] LABS: INR 1.2 (<1.2); Partial Thromboplastin Time 22.4 sec (22.0-30.0); Prothrombin Time 12.3 sec (9.0-12.0)
[2021-11-13 22:21] VITALS: BP 124/75; PULSE 151; RESP 25; TEMP 97.4
--- NOTE | 2021-11-19 08:05 | P.DS ---
Providers Date of admission: 11/11/21 21:09 Attending physician: Fermin Pedro Consults: 11/11/21 21:09 Consult Physician Routine Consulting Provider: Ruthann Alan Consult Reason/Comments: elevated troponin Do you want consulting provider notified?: Yes 11/12/21 04:36 Consult Physician Routine Consulting Provider: Josefina Arthur Consult Reason/Comments: GI bleed Do you want consulting provider notified?: Yes, Notify in am 11/12/21 06:11 Consult Physician Urgent Consulting Provider: Jyoti Bailey Consult Reason/Comments: drug and alcohol counselor/GI bleed Do you want consulting provider notified?: Yes 11/12/21 07:01 Consult Physician Stat Consulting Provider: Fermin Pedro Consult Reason/Comments: ICU managament Do you want consulting provider notified?: Already Contacted 11/12/21 07:50 Consult Physician Stat Consulting Provider: Krupa Ruiz Consult Reason/Comments: black stools, bleed Do you want consulting provider notified?: Already Contacted 11/13/21 09:50 Consult Physician Urgent Consulting Provider: Dawna Castro Consult Reason/Comments: ? IVC, GI bleed on [place] Do you want consulting provider notified?: Yes Primary care physician: Fermin Pedro - Discharge Diagnosis(es) (1) Guaiac positive stools Status: Acute (2) Anemia due to acute blood loss Status: Acute (3) COVID-19 Status: Acute (4) Dehydration Status: Acute (5) History of DVT (deep vein thrombosis) Status: Acute (6) Hypotension Status: Acute (7) Lactic acidosis Status: Acute (8) Leukocytosis Status: Acute (9) Orthostatic hypotension Status: Acute (10) Sinus tachycardia Status: Acute Hospital Course: This is a transfer summary an 81-year-old white male who is essentially admitted for dizziness and weakness. Found to have GI bleed. The patient was stabilized with 2 units of PRBC but still continued to have respiratory issues. Due to the fact that we did not have GI service, the patient was transferred to tertiary [facility] for appropriate treatment. Unfortunate, he decompensated and required significant ICU treatment including intubation and respiratory support. The patient was transferred in stable condition Patient Condition at Discharge: Serious Plan - Discharge Summary Discharge Rx Participant: No New Discharge Prescriptions: No Action Apixaban [Eliquis] 5 mg PO BID Testosterone Cypionate [Depo-Testosterone] 200 mg IM Q30D Tamsulosin [Flomax] 0.4 mg PO DAILY Olopatadine HCl [Pataday Once Daily Relief] 1 drop BOTH EYES BID Ondansetron [Zofran] 4 mg PO TID PRN PRN Reason: Nausea lisinopriL [Zestril] 2.5 mg PO DAILY Dutasteride 0.5 mg PO DAILY Glucosam/Yoav-Msm1/C/Alan/Bosw [Glucosamine-Chondroitin Tablet] 1 tab PO D AILY Ibuprofen [Motrin] 800 mg PO Q8H PRN PRN Reason: Pain Or Fever > 100.5 Atorvastatin Calcium [Lipitor] 40 mg PO DAILY hydroCHLOROthiazide [Hydrodiuril] 12.5 mg PO DAILY Sildenafil Citrate 100 mg PO DAILY PRN PRN Reason: E.D. Discharge Medication List Apixaban [Eliquis] 5 mg PO BID 11/11/21 [History] Atorvastatin Calcium [Lipitor] 40 mg PO DAILY 11/11/21 [History] Dutasteride 0.5 mg PO DAILY 11/11/21 [History] Glucosam/Yoav-Msm1/C/Alan/Bosw [Glucosamine-Chondroitin Tablet] 1 tab PO DAILY 11/11/21 [History] Ibuprofen [Motrin] 800 mg PO Q8H PRN 11/11/21 [History] Olopatadine HCl [Pataday Once Daily Relief] 1 drop BOTH EYES BID 11/11/21 [History] Ondansetron [Zofran] 4 mg PO TID PRN 11/11/21 [History] Sildenafil Citrate 100 mg PO DAILY PRN 11/11/21 [History] Tamsulosin [Flomax] 0.4 mg PO DAILY 11/11/21 [History] Testosterone Cypionate [Depo-Testosterone] 200 mg IM Q30D 11/11/21 [History] hydroCHLOROthiazide [Hydrodiuril] 12.5 mg PO DAILY 11/11/21 [History] lisinopriL [Zestril] 2.5 mg PO DAILY 11/11/21 [History] Follow up Appointment(s)/Referral(s): Fermin Pedro MD [Primary Care Provider] - 1-2 days Discharge Disposition: TRANSFER TO [facility]
== END 2021-11-13 23:32 | disposition short-term general hospital (02) | DRG 377 ==
LOC: EC 15:09 → 3SCARD 21:09 → 2SICU 11-12 06:48
PROVIDERS: ADMIT Family Medicine; ATTEND Family Medicine
PROC: 30233N1 Transfusion of Nonautologous Red Blood Cells into Peripheral Vein, Percutaneous Approach (ICD-10-PCS; 2021-11-12)
PROC: 4A133B1 Monitoring of Arterial Pressure, Peripheral, Percutaneous Approach (ICD-10-PCS; 2021-11-13)
PROC: 4A133J1 Monitoring of Arterial Pulse, Peripheral, Percutaneous Approach (ICD-10-PCS; 2021-11-13)
PROC: 02HV33Z Insertion of Infusion Device into Superior Vena Cava, Percutaneous Approach (ICD-10-PCS; 2021-11-13)
PROC: 30233K1 Transfusion of Nonautologous Frozen Plasma into Peripheral Vein, Percutaneous Approach (ICD-10-PCS; 2021-11-13)
PROC: 3E033XZ Introduction of Vasopressor into Peripheral Vein, Percutaneous Approach (ICD-10-PCS; 2021-11-13)
PROC: 06H03DZ Insertion of Intraluminal Device into Inferior Vena Cava, Percutaneous Approach (ICD-10-PCS; principal; 2021-11-13 12:05)
PROC: 03HY32Z Insertion of Monitoring Device into Upper Artery, Percutaneous Approach (ICD-10-PCS; 2021-11-13 12:05)
DX: K25.0 Acute gastric ulcer with hemorrhage (principal); A41.9 Sepsis, unspecified organism; R65.21 Severe sepsis with septic shock; I74.3 Embolism and thrombosis of arteries of the lower extremities; N17.9 Acute kidney failure, unspecified; E87.2 Acidosis; E87.1 Hypo-osmolality and hyponatremia; D62 Acute posthemorrhagic anemia; I10 Essential (primary) hypertension; E66.9 Obesity, unspecified; Z68.36 Body mass index [BMI] 36.0-36.9, adult; J44.9 Chronic obstructive pulmonary disease, unspecified; I35.0 Nonrheumatic aortic (valve) stenosis; D69.6 Thrombocytopenia, unspecified; E86.0 Dehydration; M79.89 Other specified soft tissue disorders; R00.0 Tachycardia, unspecified; I95.1 Orthostatic hypotension; K92.1 Melena; D72.829 Elevated white blood cell count, unspecified; R77.8 Other specified abnormalities of plasma proteins; R60.0 Localized edema; D75.839 Thrombocytosis, unspecified; K31.9 Disease of stomach and duodenum, unspecified; T39.395A Adverse effect of other nonsteroidal anti-inflammatory drugs [NSAID], initial encounter; Z20.822 Contact with and (suspected) exposure to COVID-19; Z85.51 Personal history of malignant neoplasm of bladder; Z92.21 Personal history of antineoplastic chemotherapy; Z86.718 Personal history of other venous thrombosis and embolism; Z86.711 Personal history of pulmonary embolism; Z79.01 Long term (current) use of anticoagulants; Z86.16 Personal history of COVID-19; Z79.899 Other long term (current) drug therapy; Z79.890 Hormone replacement therapy; Z87.442 Personal history of urinary calculi; Z90.89 Acquired absence of other organs; Z87.891 Personal history of nicotine dependence; Z80.0 Family history of malignant neoplasm of digestive organs; Z80.9 Family history of malignant neoplasm, unspecified
CPT/HCPCS: 36415; 37191; 71045; 71046; 71275; 75820; 80048; 80053; 81001; 82272; 82805; 83605; 83735; 83880; 84100; 84484; 85025; 85027; 85610; 85730; 86850; 86900; 86901; 86920; 87040; 87086; 87502; 87635; 93005; 93306; 93970; 94002; 96361; 96365; 96375; 96376; 99285

== ENCOUNTER 2022-01-01 11:35 | Emergency (ER) | payer MEDICARE ==
[2022-01-01 11:43] VITALS: RESP 16
--- NOTE | 2022-01-01 12:08 | ED ---
General Adult HPI - General Chief complaint: Dizziness Stated complaint: fever, nausea Time Seen by Provider: 01/01/22 11:54 Source: patient, family (), RN notes reviewed, old records reviewed Mode of arrival: wheelchair Limitations: no limitations - History of Present Illness Initial comments: This is a well-appearing 81-year-old male that presents to the emergency room with his complaining of shortness of breath for the past couple of days with fever. He did take Tylenol and the fever has resolved at this time. He states that he does have intermittent dizziness, denies any chest pain. He is taking eliquis for RLE DVT. He states that he was hospitalized approximately 3 weeks ago for sepsis and put on life support. They did not have a cause for his sepsis. Patient also has a history of hypertension and bladder cancer -: days(s) (2) Severity scale (1-10): 0 Consistency: constant Improves with: none Worsens with: other (exertion) Associated Symptoms: fever/chills, shortness of breath, other (Dizziness) Treatments Prior to Arrival: other (Tylenol) - Related Data Home Medications Medication Instructions Recorded Confirmed Apixaban [Eliquis] 5 mg PO BID 11/11/21 01/01/22 Atorvastatin Calcium [Lipitor] 40 mg PO HS 11/11/21 01/01/22 Dutasteride 0.5 mg PO HS 11/11/21 01/01/22 Ondansetron [Zofran] 4 mg PO Q8H PRN 11/11/21 01/01/22 Tamsulosin [Flomax] 0.4 mg PO HS 11/11/21 01/01/22 Furosemide [Lasix] 40 mg PO DAILY 01/01/22 01/01/22 Melatonin 3 mg PO HS PRN 01/01/22 01/01/22 Pantoprazole Sodium [Protonix] 40 mg PO BID 01/01/22 01/01/22 Previous Rx's Medication Instructions Recorded Cefuroxime [Ceftin] 500 mg PO BID 10 Days #20 tab 01/01/22 Allergies Allergy/AdvReac Type Severity Reaction Status Date / Time No Known Allergies Allergy Verified 01/01/22 14:03 Review of Systems ROS Statement: Those systems with pertinent positive or pertinent negative responses have been documented in the HPI. ROS Other: All systems not noted in ROS Statement are negative. Past Medical History Past Medical History: Cancer, Deep Vein Thrombosis (DVT), Hypertension, Pulmonary Embolus (PE) Additional Past Medical History / Comment(s): kidney stones, tonsillectomy, bladder cancer History of Any Multi-Drug Resistant Organisms: None Reported Past Surgical History: No Surgical Hx Reported Past Anesthesia/Blood Transfusion Reactions: No Reported Reaction Past Psychological History: No Psychological Hx Reported Smoking Status: Former smoker - Past Family History Father Family Medical History: Cancer Additional Family Medical History / Comment(s): colon cancer Brother(s) Family Medical History: Cancer Sister(s) Family Medical History: Cancer General Exam Limitations: no limitations General appearance: alert, in no apparent distress Head exam: Present: atraumatic, normocephalic, normal inspection Eye exam: Absent: scleral icterus, conjunctival injection, periorbital swelling ENT exam: Present: normal oropharynx, mucous membranes moist Neck exam: Present: normal inspection, full ROM. Absent: tenderness, meningismus, lymphadenopathy Respiratory exam: Present: normal lung sounds bilaterally. Absent: respiratory distress, wheezes, rales, rhonchi, stridor, chest wall tenderness, accessory muscle use, decreased breath sounds Cardiovascular Exam: Present: regular rate GI/Abdominal exam: Present: soft. Absent: distended, tenderness, guarding, rebound, rigid Extremities exam: Present: full ROM, normal capillary refill, pedal edema (1+), other (Bilateral dorsal pedal pulses present). Absent: tenderness, joint swelling, calf tenderness Neurological exam: Present: alert, oriented X3 Psychiatric exam: Present: normal affect, normal mood Skin exam: Present: warm, dry, normal color, other (2 mm stage II pressure ulcer coccyx family has been treating at home). Absent: cyanosis, diaphoretic Course Vital Signs 01/01/22 11:38 Temperature 97.9 F Pulse Rate 96 Respiratory 16 Rate Blood Pressure 125/72 O2 Sat by Pulse 97 Oximetry EKG Findings - EKG Results: EKG: sinus rhythm (Ventricular rate 84, NV interval 0.156, QRS 0.94, QTC 0.402 normal axis) Medical Decision Making - Medical Decision Making Chest x-ray shows no evidence of any acute cardiopulmonary disease. EKG shows sinus rhythm with occasional PVCs. Urinalysis shows evidence of infection, with leukocytosis. Electrolytes are unremarkable. Patient does have history of previous urinary tract infections in the past after diagnosis of bladder cancer and does see Dr. Worrell. Patient was given a gram of Rocephin in the emergency room. A prescription for antibiotics was provided. Patient and family are agreeable to this plan of care. They were directed to return to the emergency room with any new or concerning symptoms. - Lab Data Result diagrams: 01/01/22 13:39 01/01/22 13:39 Lab Results 01/01/22 01/01/22 01/01/22 Range/Units 12:45 12:50 13:39 WBC 13.5 H (3.8-10.6) k/uL RBC 4.30 (4.30-5.90) m/uL Hgb 12.5 L (13.0-17.5) gm/dL Hct 37.8 L (39.0-53.0) % MCV 87.9 D (80.0-100.0) fL MCH 29.1 (25.0-35.0) pg MCHC 33.1 (31.0-37.0) g/dL RDW 14.5 (11.5-15.5) % Plt Count 228 (150-450) k/uL MPV 8.5 Neutrophils % 87 % Lymphocytes % 8 % Monocytes % 3 % Eosinophils % 1 % Basophils % 0 % Neutrophils # 11.7 H (1.3-7.7) k/uL Lymphocytes # 1.1 (1.0-4.8) k/uL Monocytes # 0.4 (0-1.0) k/uL Eosinophils # 0.2 (0-0.7) k/uL Basophils # 0.0 (0-0.2) k/uL PT (9.0-12.0) sec INR (<1.2) Sodium (137-145) mmol/L Potassium (3.5-5.1) mmol/L Chloride (98-107) mmol/L Carbon Dioxide (22-30) mmol/L Anion Gap mmol/L BUN (9-20) mg/dL Creatinine (0.66-1.25) mg/dL Est GFR (CKD-EPI)AfAm (>60 ml/min/1.73 sqM) Est GFR (CKD-EPI)NonAf (>60 ml/min/1.73 sqM) Glucose (74-99) mg/dL Plasma Lactic Acid [place] (0.7-2.0) mmol/L Calcium (8.4-10.2) mg/dL Total Bilirubin (0.2-1.3) mg/dL AST (17-59) U/L ALT (4-49) U/L Alkaline Phosphatase (38-126) U/L Troponin I (0.000-0.034) ng/mL Total Protein (6.3-8.2) g/dL Albumin (3.5-5.0) g/dL Urine Color Light Yellow Urine Appearance Cloudy (Clear) Urine pH 6.0 (5.0-8.0) Ur Specific [place] 1.011 (1.001-1.035) Urine Protein Negative (Negative) Urine Glucose (UA) Negative (Negative) Urine Ketones Negative (Negative) Urine Blood Small H (Negative) Urine Nitrite Negative (Negative) Urine Bilirubin Negative (Negative) Urine Urobilinogen <2.0 (<2.0) mg/dL Ur Leukocyte Esterase Large H (Negative) Urine RBC 7 H (0-5) /hpf Urine WBC >182 H (0-5) /hpf Urine WBC Clumps Few H (None) /hpf Ur Squamous Epith Cells <1 (0-4) /hpf Urine Bacteria Occasional H (None) /hpf Hyaline Casts 3 H (0-2) /lpf Urine Mucus Rare H (None) /hpf Coronavirus (PCR) Not Detected (Not Detectd) 01/01/22 01/01/22 01/01/22 Range/Units 13:39 13:39 13:39 WBC (3.8-10.6) k/uL RBC (4.30-5.90) m/uL Hgb (13.0-17.5) gm/dL Hct (39.0-53.0) % MCV (80.0-100.0) fL MCH (25.0-35.0) pg MCHC (31.0-37.0) g/dL RDW (11.5-15.5) % Plt Count (150-450) k/uL MPV Neutrophils % % Lymphocytes % % Monocytes % % Eosinophils % % Basophils % % Neutrophils # (1.3-7.7) k/uL Lymphocytes # (1.0-4.8) k/uL Monocytes # (0-1.0) k/uL Eosinophils # (0-0.7) k/uL Basophils # (0-0.2) k/uL PT 12.4 H (9.0-12.0) sec INR 1.2 H (<1.2) Sodium 134 L (137-145) mmol/L Potassium 4.0 (3.5-5.1) mmol/L Chloride 96 L (98-107) mmol/L Carbon Dioxide 29 (22-30) mmol/L Anion Gap 9 mmol/L BUN 22 H (9-20) mg/dL Creatinine 1.06 (0.66-1.25) mg/dL Est GFR (CKD-EPI)AfAm 76 (>60 ml/min/1.73 sqM) Est GFR (CKD-EPI)NonAf 66 (>60 ml/min/1.73 sqM) Glucose 119 H (74-99) mg/dL Plasma Lactic Acid [place] 1.6 (0.7-2.0) mmol/L Calcium 9.4 (8.4-10.2) mg/dL Total Bilirubin 0.9 (0.2-1.3) mg/dL AST 25 (17-59) U/L ALT 14 (4-49) U/L Alkaline Phosphatase 80 (38-126) U/L Troponin I (0.000-0.034) ng/mL Total Protein 6.4 (6.3-8.2) g/dL Albumin 3.7 (3.5-5.0) g/dL Urine Color Urine Appearance (Clear) Urine pH (5.0-8.0) Ur Specific [place] (1.001-1.035) Urine Protein (Negative) Urine Glucose (UA) (Negative) Urine Ketones (Negative) Urine Blood (Negative) Urine Nitrite (Negative) Urine Bilirubin (Negative) Urine Urobilinogen (<2.0) mg/dL Ur Leukocyte Esterase (Negative) Urine RBC (0-5) /hpf Urine WBC (0-5) /hpf Urine WBC Clumps (None) /hpf Ur Squamous Epith Cells (0-4) /hpf Urine Bacteria (None) /hpf Hyaline Casts (0-2) /lpf Urine Mucus (None) /hpf Coronavirus (PCR) (Not Detectd) 01/01/22 Range/Units 13:39 WBC (3.8-10.6) k/uL RBC (4.30-5.90) m/uL Hgb (13.0-17.5) gm/dL Hct (39.0-53.0) % MCV (80.0-100.0) fL MCH (25.0-35.0) pg MCHC (31.0-37.0) g/dL RDW (11.5-15.5) % Plt Count (150-450) k/uL MPV Neutrophils % % Lymphocytes % % Monocytes % % Eosinophils % % Basophils % % Neutrophils # (1.3-7.7) k/uL Lymphocytes # (1.0-4.8) k/uL Monocytes # (0-1.0) k/uL Eosinophils # (0-0.7) k/uL Basophils # (0-0.2) k/uL PT (9.0-12.0) sec INR (<1.2) Sodium (137-145) mmol/L Potassium (3.5-5.1) mmol/L Chloride (98-107) mmol/L Carbon Dioxide (22-30) mmol/L Anion Gap mmol/L BUN (9-20) mg/dL Creatinine (0.66-1.25) mg/dL Est GFR (CKD-EPI)AfAm (>60 ml/min/1.73 sqM) Est GFR (CKD-EPI)NonAf (>60 ml/min/1.73 sqM) Glucose (74-99) mg/dL Plasma Lactic Acid [place] (0.7-2.0) mmol/L Calcium (8.4-10.2) mg/dL Total Bilirubin (0.2-1.3) mg/dL AST (17-59) U/L ALT (4-49) U/L Alkaline Phosphatase (38-126) U/L Troponin I <0.012 (0.000-0.034) ng/mL Total Protein (6.3-8.2) g/dL Albumin (3.5-5.0) g/dL Urine Color Urine Appearance (Clear) Urine pH (5.0-8.0) Ur Specific [place] (1.001-1.035) Urine Protein (Negative) Urine Glucose (UA) (Negative) Urine Ketones (Negative) Urine Blood (Negative) Urine Nitrite (Negative) Urine Bilirubin (Negative) Urine Urobilinogen (<2.0) mg/dL Ur Leukocyte Esterase (Negative) Urine RBC (0-5) /hpf Urine WBC (0-5) /hpf Urine WBC Clumps (None) /hpf Ur Squamous Epith Cells (0-4) /hpf Urine Bacteria (None) /hpf Hyaline Casts (0-2) /lpf Urine Mucus (None) /hpf Coronavirus (PCR) (Not Detectd) Disposition Clinical Impression: UTI (urinary tract infection) Disposition: HOME SELF-CARE Condition: Good Instructions (If sedation given, give patient instructions): Urinary Tract Infection in Men (ED), Dizziness (ED) Additional Instructions: Take antibiotics as prescribed. Follow-up with the primary care doctor and urologist next week. Return to the emergency room with any new or concerning symptoms. Increase your fluid intake. Prescriptions: Cefuroxime [Ceftin] 500 mg PO BID 10 Days #20 tab Is patient prescribed a controlled substance at d/c from ED?: No Referrals: Fermin Pedro MD [Primary Care Provider] - 1-2 days Jose Worrell MD [STAFF PHYSICIAN] - 1-2 days Time of Disposition: 14:37
[2022-01-01 13:17] LABS: Appearance,Urine Cloudy (Clear); Bacteria,Urine Occasional /hpf; Bilirubin,Urine Negative (Negative); Blood,Urine Small (Negative); Color,Urine Light Yellow; Glucose,Urine (UA) Negative (Negative); Hyaline Casts,Urine 3 /lpf (0-2); Ketones,Urine Negative (Negative); Leukocyte Esterase,Urine Large (Negative); Mucus,Urine Rare /hpf; Nitrite,Urine Negative (Negative); Protein,Urine Negative (Negative); RBC,Urine 7 /hpf (0-5); Specific Gravity,Urine 1.011 (1.001-1.035); Squamous Epithelial Cell,Urine <1 /hpf (0-4); Urobilinogen,Urine <2.0 mg/dL (<2.0); WBC,Urine >182 /hpf (0-5)
[2022-01-01 13:53] LABS: Albumin 3.7 g/dL (3.5-5.0); Calcium 9.4 mg/dL (8.4-10.2); Total Bilirubin 0.9 mg/dL (0.2-1.3); Total Protein 6.4 g/dL (6.3-8.2)
[2022-01-01 13:55] LABS: INR 1.2 (<1.2); Prothrombin Time 12.4 sec (9.0-12.0)
[2022-01-01 13:59] LABS: Basophils % (A) 0 %; Eosinophils # (A) 0.2 k/uL (0-0.7); Eosinophils % (A) 1 %; HCT 37.8 % (39.0-53.0); HGB 12.5 gm/dL (13.0-17.5); Lymphocytes # (A) 1.1 k/uL (1.0-4.8); Lymphocytes % (A) 8 %; MCH 29.1 pg (25.0-35.0); MCHC 33.1 g/dL (31.0-37.0); Mean Platelet Volume 8.5; Monocytes # (A) 0.4 k/uL (0-1.0); Monocytes % (A) 3 %; Neutrophils # (A) 11.7 k/uL (1.3-7.7); Neutrophils % (A) 87 %; Platelet Count 228 k/uL (150-450); RDW 14.5 % (11.5-15.5); WBC 13.5 k/uL (3.8-10.6)
[2022-01-01 14:04] LABS: MCV 87.9 fL (80.0-100.0)
--- NOTE | 2022-01-01 14:12 | XR ---
EXAMINATION TYPE: XR chest 2V DATE OF EXAM: 01/01/2022 COMPARISON: NONE HISTORY: Shortness of breath TECHNIQUE: Frontal and lateral views of the chest are obtained. FINDINGS: Scattered senescent parenchymal changes noted. Hyperinflation compatible with COPD. No evidence for infiltrate. No evidence for atelectasis. Heart size is stable. Mediastinal structures are stable and grossly unremarkable. No evidence for hilar prominence. Degenerative changes dorsal spine. IMPRESSION: 1. No evidence for acute pulmonary disease.
[2022-01-01] MEDS ORDERED: cefTRIAXone IN SWFI 1,000 MG/10 ML SYRINGE IVP STA (14:25)
[2022-01-01 15:55] VITALS: BP 119/93; PULSE 110; TEMP 100
== END 2022-01-01 15:55 | disposition home or self-care (01) ==
LOC: EC 11:35
DX: N39.0 Urinary tract infection, site not specified (principal); R06.02 Shortness of breath; R42 Dizziness and giddiness; I10 Essential (primary) hypertension; Z86.718 Personal history of other venous thrombosis and embolism; Z86.711 Personal history of pulmonary embolism; Z87.891 Personal history of nicotine dependence; Z20.822 Contact with and (suspected) exposure to COVID-19; Z79.01 Long term (current) use of anticoagulants
CPT/HCPCS: 36415; 93005; 80053; 83605; 84484; 85025; 85610; 81001; 87086; 87635; 71046; 99285; 96374; J0696

== ENCOUNTER → 2022-03-09 | Outpatient (CLI) | payer MEDICARE ==
[2022-03-09 18:29] LABS: HCT 38.8 % (39.6-50.0); MCH 25.9 pg (27.0-32.0); MCHC 30.9 g/dL (32.0-37.0); MCV 83.6 fL (80.0-97.0); NRBC Per 100 WBC 0 /100 WBCS (0.0-0.0); Platelet Count 228 X 10*3/uL (140-440); RBC 4.64 X 10*6/uL (4.40-5.60); RDW 16.6 % (11.5-14.5); WBC 7.74 X 10*3/uL (4.50-10.00)
[2022-03-09 19:56] LABS: ALT 21 U/L (10-49); AST 24 U/L (14-35); African American GFR (CKD) 72.6 (60.0-200.0); Albumin 4.1 g/dL (3.8-4.9); Albumin/Globulin Ratio 1.71 (1.60-3.17); Alkaline Phosphatase 86 U/L (41-126); BUN/Creat Ratio 22.18 Ratio (12.00-20.00); Blood Urea Nitrogen 24.4 mg/dL (9.0-27.0); Calcium 9.9 mg/dL (8.7-10.3); Carbon Dioxide 25.4 mmol/L (20.0-27.5); Chloride 102 mmol/L (96-109); Chol/HDL Ratio 2.92 Ratio; Globulin 2.4 g/dL (1.6-3.3); Glucose 102 mg/dL (70-110); LDL Cholesterol,Calculated 86.4 mg/dL (0.0-131.0); Non-African American GFR(CKD) 62.6 (60.0-200.0); Potassium 4.6 mmol/L (3.5-5.5); Sodium 138 mmol/L (135-145); Total Protein 6.5 g/dL (6.2-8.2); VLDL Calculation 18.08 mg/dL (5.00-40.00)
[2022-03-09 21:05] LABS: Appearance,Urine Clear (Clear); Bilirubin,Urine Negative (Negative); Blood,Urine Negative (Negative); Color,Urine Yellow (Yellow); Erythrocyte Sedimentation Rate 46 mm/Hr (0-20); Ketones,Urine Negative (Negative); Nitrite,Urine Negative (Negative); PH, Urine 5.5 (5.0-8.0); Specific Gravity,Urine 1.021 (1.001-1.030); Urobilinogen,Urine 0.2 (0.2,1.0)
== END | disposition home or self-care (01) ==
LOC: LABWHC1 10:02
PROVIDERS: ATTEND Physician Assistant
DX: E78.5 Hyperlipidemia, unspecified (principal); I10 Essential (primary) hypertension; N40.0 Benign prostatic hyperplasia without lower urinary tract symptoms
CPT/HCPCS: 36415; 80053; 80061; 81003; 83036; 84153; 85027; 85652; 86140

== ENCOUNTER → 2022-09-22 | Outpatient (CLI) | payer MEDICARE | END | disposition home or self-care (01) | LOC: LABWHC1 09:39 | PROVIDERS: ATTEND Ophthalmology | DX: G70.00 Myasthenia gravis without (acute) exacerbation (principal) | CPT/HCPCS: 36415; 83519 ==

== ENCOUNTER → 2022-09-23 | Outpatient (CLI) | payer MEDICARE ==
--- NOTE | 2022-09-23 16:54 | MR ---
EXAMINATION TYPE: MR brain wo con DATE OF EXAM: 09/23/2022 4:40 PM COMPARISON: None. CLINICAL INDICATION:Male, 82 years old with history of H49.01; Double vision. TECHNIQUE: Multi planar, multi sequence imaging was performed through the brain including: T1, T2, In version recovery, Diffusion weighted imaging, and gradient echo imaging. No gadolinium was given. FINDINGS: Atrophy of the cerebrum with proportional dilation of ventricular systems. The williamson-white junctions, ventricular system, and cisterns appear unremarkable. Scattered foci of hi gh T2 signal intensity are seen within the periventricular white matter. Midline structures show no a bnormality. Diffusion-weighted imaging shows no evidence of restricted diffusion. The susceptibility weighted images do not reveal any evidence for micro-hemorrhage. The bone marrow signal is within normal limits. Paranasal sinuses and mastoid air cells: No significant paranasal sinus disease. Visualized orbits: Bilateral aphakia IMPRESSION: 1. No evidence of intracranial mass or acute/subacute infarct. 2. Nonspecific white matter changes, likely secondary to small vessel ischemic disease. 3. Generalized cerebral atrophy with proportional dilation of ventricular system.
== END | disposition home or self-care (01) ==
LOC: RADMRIMAIN 16:00
PROVIDERS: ATTEND Ophthalmology
DX: H49.01 Third [oculomotor] nerve palsy, right eye (principal); G31.9 Degenerative disease of nervous system, unspecified; R90.82 White matter disease, unspecified
CPT/HCPCS: 70551

== ENCOUNTER → 2023-03-07 | Outpatient (CLI) | payer MEDICARE ==
[2023-03-07 15:29] LABS: Basophils # (A) 0.05 X 10*3/uL (0.00-0.10); Basophils % (A) 0.7 %; Eosinophils # (A) 0.13 X 10*3/uL (0.04-0.35); Eosinophils % (A) 1.7 %; HCT 47.7 % (39.6-50.0); HGB 14.7 g/dL (13.0-17.0); Lymphocytes # (A) 1.49 X 10*3/uL (0.90-5.00); Lymphocytes % (A) 19.5 %; MCH 27.5 pg (27.0-32.0); MCHC 30.8 g/dL (32.0-37.0); MCV 89.3 FL (80.0-97.0); Mean Platelet Volume 10.8 FL (9.5-12.2); Monocytes % (A) 9.2 %; NRBC Per 100 WBC 0 X 10*3/uL (0.00-0.01); Neutrophils # (A) 5.26 X 10*3/uL (1.80-7.70); Neutrophils % (A) 68.6 %; Platelet Count 218 X 10*3/uL (140-440); RBC 5.34 X 10*6/uL (4.40-5.60); RDW 15.2 % (11.5-14.5); WBC 7.65 X 10*3/uL (4.50-10.00)
[2023-03-07 15:56] LABS: ALT 19 U/L (10-49); AST 25 U/L (14-35); Albumin 4.2 g/dL (3.8-4.9); Albumin/Globulin Ratio 1.75 Ratio (1.60-3.17); Alkaline Phosphatase 72 U/L (41-126); Blood Urea Nitrogen 19.8 mg/dL (9.0-27.0); Calcium 10.1 mg/dL (8.7-10.3); Carbon Dioxide 25.7 mmol/L (21.6-31.8); Chloride 106 mmol/L (96-109); Chol/HDL Ratio 2.11 Ratio; Globulin 2.4 g/dL (1.6-3.3); Glucose 95 mg/dL (70-110); LDL Cholesterol,Calculated 61.8 mg/dL (0.0-131.0); Potassium 5.1 mmol/L (3.5-5.5); Sodium 140 mmol/L (135-145); Total Bilirubin 0.5 mg/dL (0.3-1.2); Total Protein 6.6 g/dL (6.2-8.2); VLDL Calculation 13.26 mg/dL (5.00-40.00)
[2023-03-07 15:57] LABS: Prostate Specific Antigen 3.33 ng/mL (0.000-6.500)
[2023-03-07 17:07] LABS: Appearance,Urine Clear (Clear); Bilirubin,Urine Negative (Negative); Blood,Urine Negative (Negative); Color,Urine Yellow (Yellow); Ketones,Urine Negative (Negative); Nitrite,Urine Negative (Negative); PH, Urine 5.5; Specific Gravity,Urine 1.017 (1.001-1.030); Urobilinogen,Urine 0.2 E.U./DL
== END | disposition home or self-care (01) ==
LOC: LABWHC1 10:11
PROVIDERS: ATTEND Family Medicine
DX: Z12.5 Encounter for screening for malignant neoplasm of prostate (principal); E78.5 Hyperlipidemia, unspecified; R60.0 Localized edema
CPT/HCPCS: 36415; 80053; 80061; 81003; 84153; 84443; 85025

== ENCOUNTER 2024-03-05 18:17 | Observation (INO) | payer MEDICARE ==
--- NOTE | 2024-03-05 18:43 | ED ---
Altered Mental Status HPI - General Source: patient, family (), RN notes reviewed Mode of arrival: ambulatory Limitations: no limitations <Dionna Valdes - Last Filed: 03/05/24 18:40> - General Source: patient, family, RN notes reviewed Limitations: no limitations <Matty Martinez - Last Filed: 03/05/24 20:09> - General Chief Complaint: Altered Mental Status Stated Complaint: POSS STROKE, CANT COMPLETE SENTENCES Time Seen by Provider: 03/05/24 18:40 - History of Present Illness Initial Comments: Quick note: 83-year-old male presenting to the ER accompanied by his with a chief complaint of unable to complete sentences. Patient states about an hour and a half prior to arrival he was sitting up in the room with his when he started to have difficulty speaking. states he was repeating the same 3 words. Patient states he could "not complete a sentence". Symptoms occurred for approximately 30 minutes. Patient does have a remote history of atrial fibrillation and is currently taking a baby aspirin daily. denies any facial droop, weakness or slurred speech. No history of TIA or stroke. Sympt oms have since resolved. (Dionna Valdes) Patient is an 83-year-old male presenting to the emergency department with concern for speech problems. Onset of symptoms was around 6 PM. Symptoms lasted a half an hour and have resolved. Currently symptom-free. Patient did not feel confused however did have difficulty reading words. Patient also had difficulty speaking. states speech sounded garbled. No history of similar symptoms previously. No headache. No weakness. (Matty Martinez) - Related Data Home Medications Medication Instructions Recorded Confirmed Apixaban [Eliquis] 5 mg PO BID 11/11/21 01/01/22 Atorvastatin Calcium [Lipitor] 40 mg PO HS 11/11/21 01/01/22 Dutasteride 0.5 mg PO HS 11/11/21 01/01/22 Ondansetron [Zofran] 4 mg PO Q8H PRN 11/11/21 01/01/22 Tamsulosin [Flomax] 0.4 mg PO HS 11/11/21 01/01/22 Furosemide [Lasix] 40 mg PO DAILY 01/01/22 01/01/22 Melatonin 3 mg PO HS PRN 01/01/22 01/01/22 Pantoprazole Sodium [Protonix] 40 mg PO BID 01/01/22 01/01/22 Previous Rx's Medication Instructions Recorded Cefuroxime [Ceftin] 500 mg PO BID 10 Days #20 tab 01/01/22 Allergies Allergy/AdvReac Type Severity Reaction Status Date / Time No Known Allergies Allergy Verified 03/05/24 18:27 Review of Systems ROS Other: All systems not noted in ROS Statement are negative. <Dionna Valdes - Last Filed: 03/05/24 18:40> ROS Other: All systems not noted in ROS Statement are negative. Constitutional: Denies: fever Eyes: Denies: eye pain ENT: Denies: ear pain Respiratory: Denies: cough, dyspnea Cardiovascular: Denies: chest pain Neurological: Reports: as per HPI. Denies: headache, weakness <Matty Martinez Last Filed: 03/05/24 20:09> ROS Statement: Those systems with pertinent positive or pertinent negative responses have been documented in the HPI. Past Medical History Past Medical History: Cancer, Deep Vein Thrombosis (DVT), Hypertension, Pulmonary Embolus (PE) Additional Past Medical History / Comment(s): kidney stones, tonsillectomy, bladder cancer History of Any Multi-Drug Resistant Organisms: None Reported Past Surgical History: No Surgical Hx Reported Past Anesthesia/Blood Transfusion Reactions: No Reported Reaction Past Psychological History: No Psychological Hx Reported Smoking Status: Former smoker Past Alcohol Use History: Occasional Past Drug Use History: None Reported - Past Family History Father Family Medical History: Cancer Additional Family Medical History / Comment(s): colon cancer Brother(s) Family Medical History: Cancer Sister(s) Family Medical History: Cancer <Dionna Valdes - Last Filed: 03/05/24 18:40> General Exam Limitations: no limitations <Dionna Valdes - Last Filed: 03/05/24 18:40> Limitations: no limitations General appearance: alert, in no apparent distress Head exam: Present: normocephalic Eye exam: Present: normal appearance, PERRL, EOMI Neck exam: Present: normal inspection Respiratory exam: Present: normal lung sounds bilaterally Cardiovascular Exam: Present: regular rate, normal rhythm GI/Abdominal exam: Present: soft. Absent: tenderness Extremities exam: Present: normal inspection Neurological exam: Present: alert, oriented X3, CN II-XII intact. Absent: motor sensory deficit Expanded Neurological exam: Present: protecting the airway Speech: Present: fluid speech Cranial nerves: EOM's Intact: Normal, Facial Sensation: Normal Sensory exam: Upper Extremity Light Touch: Normal, Lower Extremity Light Touch: Normal Motor strength exam: RUE: 5, LUE: 5, RLE: 5, LLE: 5 Eye Response: (4) open spontaneously Motor Response: (6) obeys commands Verbal Response: (5) oriented Psychiatric exam: Present: normal affect, normal mood Skin exam: Present: normal color <Matty Martinez - Last Filed: 03/05/24 20:09> - General Exam Comments Initial Comments: Visual Physical Exam Vital signs reviewed General: Well-appearing, nontoxic, no acute distress. Speaking in full sentences. Head: Normocephalic, atraumatic Eyes: PERRLA, EOMI ENT: Airway patent Chest: Nonlabored breathing Skin: No visual rash, normal skin tone Neuro: Alert and oriented 3 Musculoskeletal: No gross abnormalities (Dionna Valdes) Course Vital Signs 03/05/24 03/05/24 18:24 19:55 Temperature 97.8 F Pulse Rate 84 83 Respiratory 16 18 Rate Blood Pressure 179/96 162/78 O2 Sat by Pulse 98 97 Oximetry Medical Decision Making <Dionna Valdes - Last Filed: 03/05/24 18:40> - Lab Data Result diagrams: 03/05/24 18:54 03/05/24 18:54 <Matty Martinez - Last Filed: 03/05/24 20:09> - Medical Decision Making I performed the quick note portion of this chart. Electronically signed by Dionna Valdes PA-C (Dionna Valdes) EKG interpreted by myself shows sinus rhythm with a rate of 71. Normal intervals. Normal axis. Septal Q waves. T wave inversion lead III. Was pt. sent in by a medical professional or institution ([facility], PARISH WORKER, urgent care, hospital, or senior care...) When possible be specific @ -No Did you speak to anyone other than the patient for history (EMS, parent, family, police, friend...)? What history was obtained from this source @ - is present and helps provide history including that patient did have garbled speech Did you review nursing and triage notes (agree or disagree)? Why? @ -I reviewed and agree with nursing and triage notes Were old charts reviewed (outside hosp., previous admission, EMS record, old EKG, old radiological studies, urgent care reports/EKG's, senior care records)? Report findings @ -No old charts were reviewed Differential Diagnosis (chest pain, altered mental status, abdominal pain women, abdominal pain men, vaginal bleeding, weakness, fever, dyspnea, syncope, headache, dizziness, GI bleed, back pain, seizure, CVA, palpatations, mental health, musculoskeletal)? @ -Differential Weakness: Hypoglycemia, shock, sepsis, hyponatremia, anemia, infection, MN, ETOH, adverse medicine reaction, overdose, stroke, this is not meant to be an all-inclusive list. EKG interpreted by me (3pts min.). @ -As above X-rays interpreted by me (1pt min.). @ -Chest x-ray shows no acute process CT interpreted by me (1pt min.). @ -CT scan of the brain without acute abnormality U/S interpreted by me (1pt. min.). @ -None done What testing was considered but not performed or refused? (CT, X-rays, U/S, labs)? Why? @ -None What meds were considered but not given or refused? Why? @ -None Did you discuss the management of the patient with other professionals (professionals i.e. , PA, PARISH WORKER, lab, RT, psych nurse, social media project manager, mold capper helper, teacher, chief environmental commitment officer, field nurse case manager)? Give summary @ -Case discussed with Dr. Martinez who agrees that patient is not a candidate for tenecteplase. Case also discussed with Dr. Solitario who will admit covering Dr. Dey Was smoking cessation discussed for >3mins.? @ -No Was critical care preformed (if so, how long)? @ -31 minutes critical care Were there social determinants of health that impacted care today? How? (Homelessness, low income, unemployed, alcoholism, drug addiction, transportation, low edu. Level, literacy, decrease access to med. care, [place] [facility], rehab)? @ -No Was there de-escalation of care discussed even if they declined (Discuss DNR or withdrawal of care, Hospice)? DNR status @ -No What co-morbidities impacted this encounter? (DM, HTN, Smoking, COPD, CAD, Cancer, CVA, ARF, Chemo, Hep., AIDS, mental health diagnosis, sleep apnea, morbid obesity)? @ -None Was patient admitted / discharged? Hospital course, mention meds given and route, prescriptions, significant lab abnormalities, going to OR and other pertinent info. @ -Patient presents with half an hour of expressive and receptive aphasia now resolved. NIH 0 on arrival. Patient will be admitted for TIA with neuro consult. Admission orders written. Patient is not a candidate for tenecteplase. Risks felt to outweigh the benefits, patient was symptom-free on arrival NIH was 0. Undiagnosed new problem with uncertain prognosis? @ -No Drug Therapy requiring intensive monitoring for toxicity (Heparin, Nitro, Insulin, Cardizem)? @ -No Were any procedures done? @ -No Diagnosis/symptom? @ -TIA Acute, or Chronic, or Acute on Chronic? @ -Acute Uncomplicated (without systemic symptoms) or Complicated (systemic symptoms)? @ -Default Side effects of treatment? @ -No Exacerbation, Progression, or Severe Exacerbation? @ -No Poses a threat to life or bodily function? How? (Chest pain, USA, MN, pneumonia, PE, COPD, DKA, ARF, appy, cholecystitis, CVA, Diverticulitis, Homicidal, Suicidal, threat to staff... and all critical care pts) @ -To neurological function (Matty Martinez) - Lab Data Lab Results 03/05/24 03/05/24 03/05/24 Range/Units 18:54 18:54 18:54 WBC 8.1 (3.8-10.6) k/uL RBC 5.24 (4.30-5.90) m/uL Hgb 12.9 L (13.0-17.5) gm/dL Hct 41.4 (39.0-53.0) % MCV 78.9 L (80.0-100.0) fL MCH 24.6 L (25.0-35.0) pg MCHC 31.2 (31.0-37.0) g/dL RDW 17.8 H (11.5-15.5) % Plt Count 208 (150-450) k/uL MPV 8.1 Neutrophils % 66 % Lymphocytes % 21 % Monocytes % 7 % Eosinophils % 3 % Basophils % 0 % Neutrophils # 5.4 (1.3-7.7) k/uL Lymphocytes # 1.7 (1.0-4.8) k/uL Monocytes # 0.6 (0-1.0) k/uL Eosinophils # 0.3 (0-0.7) k/uL Basophils # 0.0 (0-0.2) k/uL Anisocytosis Slight Microcytosis Slight Sodium 138 (137-145) mmol/L Potassium 3.9 (3.5-5.1) mmol/L Chloride 104 (98-107) mmol/L Carbon Dioxide 26 (22-30) mmol/L Anion Gap 8 mmol/L BUN 26 H (9-20) mg/dL Creatinine 1.06 (0.66-1.25) mg/dL Est GFR (CKD-EPI)AfAm 75 (>60 ml/min/1.73 sqM) Est GFR (CKD-EPI)NonAf 65 (>60 ml/min/1.73 sqM) Glucose 90 (74-99) mg/dL Calcium 9.9 (8.4-10.2) mg/dL Total Bilirubin 1.2 (0.2-1.3) mg/dL AST 27 (17-59) U/L ALT 15 (4-49) U/L Alkaline Phosphatase 99 (38-126) U/L Troponin I <0.012 (0.000-0.034) ng/mL Total Protein 7.4 (6.3-8.2) g/dL Albumin 4.5 (3.5-5.0) g/dL Disposition <Dionna Valdes - Last Filed: 03/05/24 18:40> Is patient prescribed a controlled substance at d/c from ED?: No Time of Disposition: 20:09 <Matty Martinez - Last Filed: 03/05/24 20:09> Clinical Impression: TIA (transient ischemic attack) Disposition: ADMITTED IP TO THIS HOSP Referrals: Ephraim Valdovinos, HAJA [REFERRING] - 1-2 days
[2024-03-05 19:11] LABS: Anisocytosis Slight; Basophils % (A) 0 %; Eosinophils # (A) 0.3 k/uL (0-0.7); Eosinophils % (A) 3 %; HCT 41.4 % (39.0-53.0); HGB 12.9 gm/dL (13.0-17.5); Lymphocytes # (A) 1.7 k/uL (1.0-4.8); Lymphocytes % (A) 21 %; MCH 24.6 pg (25.0-35.0); MCHC 31.2 g/dL (31.0-37.0); MCV 78.9 fL (80.0-100.0); Mean Platelet Volume 8.1; Microcytosis Slight; Monocytes # (A) 0.6 k/uL (0-1.0); Monocytes % (A) 7 %; Neutrophils # (A) 5.4 k/uL (1.3-7.7); Neutrophils % (A) 66 %; Platelet Count 208 k/uL (150-450); RBC 5.24 m/uL (4.30-5.90); RDW 17.8 % (11.5-15.5); WBC 8.1 k/uL (3.8-10.6)
[2024-03-05 19:26] LABS: ALT 15 U/L (4-49); AST 27 U/L (17-59); African American GFR (CKD) 75 (>60 ml/min/1.73 sqM); Albumin 4.5 g/dL (3.5-5.0); Alkaline Phosphatase 99 U/L (38-126); Anion Gap 8 mmol/L; Blood Urea Nitrogen 26 mg/dL (9-20); Calcium 9.9 mg/dL (8.4-10.2); Carbon Dioxide 26 mmol/L (22-30); Chloride 104 mmol/L (98-107); Glucose 90 mg/dL (74-99); Non-African American GFR(CKD) 65 (>60 ml/min/1.73 sqM); Potassium 3.9 mmol/L (3.5-5.1); Sodium 138 mmol/L (137-145); Total Bilirubin 1.2 mg/dL (0.2-1.3); Total Protein 7.4 g/dL (6.3-8.2)
--- NOTE | 2024-03-05 19:32 | CT ---
EXAMINATION TYPE: CT brain wo con DATE OF EXAM: 03/05/2024 7:25 PM COMPARISON: Previous MRI brain study dated 09/23/2022.. CLINICAL INDICATION: Male, 83 years old with history of AMS, dysphasia, blurred vision x 2 hours TECHNIQUE: Brain: Axial CT images of the brain were obtained with coronal and sagittal reformats created and rev iewed. Contrast used: None. Oral contrast used: None. CT DLP: 1174.6 mGycm, Automated exposure control for dose reduction was used. FINDINGS: Brain: No acute intracranial hemorrhage, midline shift or significant mass effect. No sizable extra-axial fl uid collection. Basal cisterns appear patent. Ventricles and sulci mildly prominent suggesting generalized cerebral volume loss. Patchy periventric ular and subcortical white matter hypoattenuation, likely reflecting chronic microvascular ischemia. Partially opacified bilateral mastoid air cells. Paranasal sinuses appear patent. Previous bilateral cataract lens extraction noted. No acute fracture. No evidence of a scalp hematoma. IMPRESSION: No acute intracranial hemorrhage, midline shift or significant mass effect. [facility], , 03/05/2024 7:30 PM
[2024-03-05 19:34] LABS: Prothrombin Time 10.9 sec (10.0-12.5)
--- NOTE | 2024-03-05 20:00 | XR ---
EXAMINATION TYPE: XR chest 2V DATE OF EXAM: 03/05/2024 7:49 PM COMPARISON: Previous chest radiograph 01/01/2022. CLINICAL INDICATION: Male, 83 years old with history of altered mental status; [facility] TECHNIQUE: XR chest 2V Frontal and lateral views of the chest. FINDINGS: Heart size within normal limits. No acute focal consolidation. No pleural effusion. No appreciable pneumothorax. No acute osseous abnormality. Thoracic spine degenerative changes. IMPRESSION: No acute abnormality in the chest. [facility], , 03/05/2024 7:57 PM
--- NOTE | 2024-03-05 20:13 | CT ---
EXAMINATION TYPE: CT angio head neck DATE OF EXAM: 03/05/2024 7:54 PM COMPARISON: Previous brain MRI study 10/03/2022, same date CT head without IV contrast.. CLINICAL INDICATION: Male, 83 years old with history of tia; PHH, dysphasia, blurred vision x 2 hours TECHNIQUE: Axially acquired helical CT angiogram of the head and neck was obtained with contrast. Axi al images are supplemented with 3D reconstructions and MIP images which were post-processed at an in dependent workstation. NASCET criteria used. Contrast used:65 mL of Isovue 370 with IV Contrast, Oral contrast used: None. CT DLP: 470.7 mGycm, Automated exposure control for dose reduction was used. FINDINGS: CTA HEAD: No evidence of acute intracranial hemorrhage, mass effect, or midline shift. The ventricles, sulci, a nd cisterns are unremarkable. Vertebral arteries: The vertebral arteries are patent. Vertebral artery dominance: Codominant Basilar artery: The basilar artery is intact. The basilar artery bifurcation is normal. Internal Carotid arteries: The cervical, petrous, cavernous and supraclinoid segments are without sig nificant/flow limiting stenosis. EUGENIE: Patent with no evidence of aneurysm. ACOM: Present without evidence of aneurysm. MCA: Patent with no evidence of aneurysm. RISK ADVISOR: origin of the left RISK ADVISOR PCOM: Present bilaterally. Dural sinuses: Patent. CTA NECK: Right Carotid System: The common carotid artery and external carotid artery are patent. The carotid bifurcation demonstrate s no evidence of hemodynamically significant stenosis. The remaining portions of the internal carotid artery demonstrate normal size without significant narrowing. Left Carotid System: The common carotid artery and external carotid artery are patent. The carotid bifurcation demonstrate s no evidence of hemodynamically significant stenosis. The remaining portions of the internal carotid artery demonstrate normal size without significant narrowing. Vertebral arteries are patent without evidence hemodynamically significant stenosis. There is a three-vessel aortic arch. The origins of the great vessels are patent. No evidence of hemo dynamically significant stenosis. Multilevel intervertebral disc space loss of the cervical spine with extensive anterior ossified form ation. Cervical spine vertebral body heights appear to be maintained. Multilevel uncovertebral hypert rophy/facet arthropathy and correlation with posterior disc osteophyte complexes causing degrees of n eural foraminal and spinal canal stenosis throughout the visualized cervical spine. Visualized neck demonstrates no pathologic cervical chain lymphadenopathy. Thyroid gland unremarkable . Partially visualized upper lungs demonstrate emphysema. Upper thorax: IMPRESSION: 1. No evidence of dissection of the cervical internal carotid arteries or vertebral arteries. 2. No any evidence of significant/flow limiting stenosis at the carotid bifurcations. 3. No evidence of intracranial high-grade stenosis or intracranial aneurysm. [facility], , 03/05/2024 8:10 PM
[2024-03-05 20:32] LABS: Amphetamine Screen,Urine Not Detected (NotDetected); Barbiturate Screen,Urine Not Detected (NotDetected); Benzodiazepines Screen,Urine Not Detected (NotDetected); Cocaine Screen,Urine Not Detected (NotDetected); Methadone Screen, Urine Not Detected (NotDetected); Opiate Screen,Urine Detected (NotDetected); Oxycodone Screen, Urine Not Detected (NotDetected); Phencyclidine Screen,Urine Not Detected (NotDetected); Tricyclic Antidepressant,Urine Not Detected (NotDetected); Urn Cannabinoid Scrn Not Detected (NotDetected)
[2024-03-05] MEDS: ASPIRIN 325 MG TAB PO STA (20:35)
--- NOTE | 2024-03-05 21:31 | P.HPIM ---
History of Present Illness H&P Date: 03/05/24 Chief Complaint: Speech problems Chief Complaint: Speech problems History of present illness; 83-year-old male with PMH of hypertension, history of DVT and PE, atrial fibrillation (previously on Eliquis, discontinued due to GIB, currently only on aspirin at home) and history of bladder cancer presents with complaints of speech problems. Reports about an hour and a half prior to arrival in the ED he was sitting up in his living room with his when he started to have difficulty speaking. Reports shortly before this occurred he noticed he had difficulty reading small print on his mail. reports he kept repeating the same words over and over again. Patient reports he could not complete a sentence. reports the symptoms occurred for approximately 30 minutes. denies noticing any facial droop, weakness, or slurred speech. Patient has no history of TIA or stroke but does have a history of DVT and PE. Patient admits to difficulty speaking but denies weakness, numbness, tingling, dizziness, or facial asymmetry. He also denied confusion, headache, chest pain, shortness of breath, weakness, palpitations, abdominal pain, nausea, vomiting, diarrhea, constipation, loss of bowel and urine, fever, chills, and history of similar symptoms. Reports being at his baseline at the time of interview and had no additional complaints. Labs: WBC 8.1, hemoglobin 12.9, MCV 78.9, sodium 138, potassium 3.9, creatinine 1.06, and troponin less than 0.012. Imaging: -ER CXR: No acute abnormality in chest. -ER CT Head: No acute intracranial hemorrhage, midline shift, or significant mass effect. -CTA head and neck: No evidence of dissection of the cervical internal carotid arteries or vertebral arteries, no evidence of significant flow-limiting stenosi s of the carotid bifurcations, and no evidence of intracranial high-grade stenosis or intracranial aneurysm. REVIEW OF SYSTEMS: As stated above in HPI. The rest of the 14-point review of systems is negative. PHYSICAL EXAMINATION: GENERAL: The patient is alert and oriented x3, not in any acute distress. Well developed, well nourished. HEENT: Pupils are round and equally reacting to light. EOMI. No scleral icterus. No conjunctival pallor. Normocephalic, atraumatic. CARDIOVASCULAR: S1 and S2 present. No murmurs, rubs, or gallops. PULMONARY: Chest is clear to auscultation b/l, no wheezing or crackles, with the exception of minimal expiratory wheeze auscultated left upper lobe. ABDOMEN: Soft, nontender, nondistended, normoactive bowel sounds. No palpable organomegaly. MUSCULOSKELETAL: No joint swelling or deformity. EXTREMITIES: No cyanosis, clubbing, 1-2+ edema up to mid calf on right leg and trace edema from mid calf to knee on right leg, no edema appreciated on the left lower extremity NEUROLOGICAL: Gross neurological examination did not reveal any focal deficits. CN II to XII intact. No aphasia, issues with fluency, nor asymmetry of the face noted SKIN: No rashes. Assessment and Plan 83-year-old male with PMH of hypertension, history of DVT and PE, atrial fibrillation (on aspirin at home) and history of bladder cancer presents with complaints of speech problems. Patient is admitted to the internal medicine service with a likely stay of less than 2 midnights. # Aphasia - now resolved, suspect TIA vs complex migraine -Symptoms have now resolved -CT brain and angiography of the head and neck were noncontributory -Neurology consulted -Echo ordered -Consider MRI brain -Continue aspirin 325 mg daily, given aspirin 325 mg once stat in the ED -Fall precautions -Cardiac monitoring -Neurochecks -Lipid panel ordered -PILOT PLANT SUPERVISOR Consult -PT consult Chronic Conditions: #Hypertension: -Continue home medications once reconciled #Hyperlipidemia: -Continue home Lipitor 40 mg p.o. at bedtime once reconciled #Atrial fibrillation: -Not on anticoagulation at home -Continue aspirin 325 mg daily F: P.o. E: None N: Heart healthy diet DVT ppx: Lovenox 40 mg sq qd GI ppx: Continue home Protonix 40 mg p.o. daily CODE STATUS: Full code Dispo: Pending clinical course Cody Santos MD PGY-1 FM Dictation was produced using [employer] dictation software. please excuse any grammatical, word or spelling errors. Past Medical History Past Medical History: Cancer, Deep Vein Thrombosis (DVT), Hypertension, Pulmonary Embolus (PE) Additional Past Medical History / Comment(s): kidney stones, tonsillectomy, bladder cancer History of Any Multi-Drug Resistant Organisms: None Reported Past Surgical History: No Surgical Hx Reported Past Anesthesia/Blood Transfusion Reactions: No Reported Reaction Past Psychological History: No Psychological Hx Reported Smoking Status: Former smoker Past Alcohol Use History: Occasional Past Drug Use History: None Reported - Past Family History Father Family Medical History: Cancer Additional Family Medical History / Comment(s): colon cancer Brother(s) Family Medical History: Cancer Sister(s) Family Medical History: Cancer Medications and Allergies Home Medications Medication Instructions Recorded Confirmed Type Atorvastatin Calcium [Lipitor] 40 mg PO DAILY 11/11/21 03/05/24 History Pantoprazole Sodium [Protonix] 40 mg PO AC-BRKFST 01/01/22 03/05/24 History Aspirin EC [Ecotrin Low Dose] 81 mg PO DAILY 03/05/24 03/05/24 History Furosemide [Lasix] 20 mg PO DAILY 03/05/24 03/05/24 History Glucosam/Yoav-Msm1/C/Alan/Bosw 1 tab PO DAILY 03/05/24 03/05/24 History [Glucosamine-Chondroitin Tablet] HYDROcodone/APAP 5-325MG [Steele 1 tab PO Q4HR PRN 03/05/24 03/05/24 History 5-325] metFORMIN HCL ER [Glucophage XR] 500 mg PO HS 03/05/24 03/05/24 History Allergies Allergy/AdvReac Type Severity Reaction Status Date / Time No Known Allergies Allergy Verified 03/05/24 20:34 Physical Exam Vitals: Vital Signs Temp Pulse Resp BP Pulse Ox 03/05/24 19:55 83 18 162/78 97 03/05/24 18:24 97.8 F 84 16 179/96 98 Intake and Output 03/05/24 03/05/24 03/05/24 06:59 14:59 22:59 Other: Weight 90.718 kg Results CBC & Chem 7: 03/05/24 18:54 03/05/24 18:54 Labs: Abnormal Lab Results - Last 24 Hours (Table) 03/05/24 03/05/24 03/05/24 Range/Units 18:54 18:54 19:50 Hgb 12.9 L (13.0-17.5) gm/dL MCV 78.9 L (80.0-100.0) fL MCH 24.6 L (25.0-35.0) pg RDW 17.8 H (11.5-15.5) % BUN 26 H (9-20) mg/dL Urine Opiates Screen Detected H (NotDetected)
[2024-03-06 07:24] LABS: Anisocytosis Slight; HCT 37.2 % (39.0-53.0); HGB 11.8 gm/dL (13.0-17.5); Hypochromasia Moderate; MCH 25.7 pg (25.0-35.0); MCHC 31.7 g/dL (31.0-37.0); Mean Platelet Volume 7.6; Microcytosis Slight; Platelet Count 204 k/uL (150-450); RBC 4.59 m/uL (4.30-5.90); RDW 17.7 % (11.5-15.5); WBC 8.6 k/uL (3.8-10.6)
[2024-03-06] MEDS: PANTOPRAZOLE 40 MG TABLET PO SCH (07:33)
[2024-03-06 07:40] LABS: African American GFR (CKD) 88 (>60 ml/min/1.73 sqM); Anion Gap 3 mmol/L; Blood Urea Nitrogen 27 mg/dL (9-20); Calcium 9.6 mg/dL (8.4-10.2); Carbon Dioxide 28 mmol/L (22-30); Chloride 105 mmol/L (98-107); Glucose 84 mg/dL (74-99); Non-African American GFR(CKD) 76 (>60 ml/min/1.73 sqM); Sodium 136 mmol/L (137-145)
[2024-03-06 07:41] LABS: Potassium 4.2 mmol/L (3.5-5.1)
[2024-03-06] MEDS: ATORVASTATIN 40 MG TAB PO SCH (08:13)
[2024-03-06] MEDS: ASPIRIN 325 MG TAB PO SCH (08:13)
[2024-03-06] MEDS: ENOXAPARIN 40 MG/0.4 ML SYRINGE SQ SCH (08:14)
[2024-03-06] MEDS: FUROSEMIDE 20 MG TAB PO SCH (08:14)
[2024-03-06] MEDS ORDERED: NON FORMULARY DRUG (Glucosam/Chon-Msm1/C/Mang/Bosw [Glucosamine-Chondroitin Tablet] 1 EACH PO SCH (09:00)
[2024-03-06 11:46] LABS: LDL Cholesterol,Calculated 86.4 mg/dL (0.0-131.0); VLDL Calculation 11.62 mg/dL (5.00-40.00)
--- NOTE | 2024-03-06 12:28 | P.PN ---
Subjective Progress Note Date: 03/06/24 Hospital course: Patient is a very pleasant 83-year-old male with a past medical history of hypertension, previous DVT and PE, paroxysmal atrial fibrillation previously on Eliquis (discontinued secondary to GI bleed and currently only on aspirin), and bladder cancer. He presented to the emergency department on 03/05/2024 with chief complaint of new onset difficulty with speech and reading. Upon arrival to our facility, patient underwent evaluation in the emergency department. V ital signs upon arrival show blood pressure 179/96, heart rate 84, respiratory rate 16, temp 97.8 F, and SpO2 of 98% on room air. EKG was completed showing sinus mechanism at 71 bpm with T wave inversion in lead III and no noted ST abnormality showing no signs of acute ischemia upon personal review and interpretation. CT brain was negative for acute intracranial process. CTA head was negative for acute intracranial process. CTA neck negative for any evidence of significant flow-limiting stenosis at carotid bifurcations, no evidence of dissection, and no evidence of high-grade stenosis or intracranial aneurysm reported. Chest x-ray negative for acute cardiopulmonary process. Labs compl eted and reviewed. CBC showing stable microcytic anemia with hemoglobin of 12.9. Coagulation profile normal findings. BMP showing prerenal azotemia with BUN of 26 otherwise normal findings. Blood glucose 90. Liver profile unremarkable. Troponin less than 0.012. Patient admitted under our services with consultation to neurology. Physical exam: Patient seen and fully evaluated at bedside this morning. He reports remains at baseline level and no further episodes of aphasia or difficulties with reading. Patient denies having any other complaints including headache, dizziness, lightheadedness, changes in vision or hearing, chest pain, palpitations, shortness of breath, dysphagia, cough or congestion, or experiencing any numbness/tingling/weakness in his extremities. Vital signs reviewed and stable. General: Nontoxic, no distress and appears stated age. Derm: Skin warm and dry, normal coloration for ethnicity. Head: Atraumatic, normocephalic and symmetric. Eyes: EOM's intact, no lid lag, and anicteric sclera Mouth: no lip lesions, mucus membranes moist Cardiovascular: regular rate and rhythm with normal S1S2, no murmur, positive posterior tibial pulses bilaterally, and cap refill < 2 seconds. Lungs: Respirations even, regular, and unlabored on room air. Lungs CTA bilaterally, no rhonchi, no rales, no wheezing, and no accessory muscle usage. Abdominal: soft, nontender to palpation, no guarding, no appreciable organomegaly Ext: No gross muscle atrophy, 1+ pitting bilateral lower extremity edema, no contractures. Movement and sensation equal, strong, and intact. Neuro: GCS 15. Speech clear, face symmetrical and CN II-XII grossly intact with no noted focal neuro deficits Psych: Alert and oriented to person, place, time, and situation. Appropriate and pleasant affect. Assessment and Plan of Care: 83-year-old male with PMH of hypertension, history of DVT and PE, atrial f ibrillation (on aspirin at home) and history of bladder cancer presents with complaints of speech problems. Patient is admitted to the internal medicine service with a likely stay of less than 2 midnights. Transient aphasia and visual changes- now resolved, suspect TIA vs complex migraine. -Symptoms have now resolved -CT brain negative for acute intracranial process. -CTA head and neck negative. -Neurology following, discussed plan of care with Dr. Back -Echocardiogram to be completed -MRI brain without contrast to be completed -Continue aspirin 325 mg daily -Patient to remain on continuous telemetry monitoring and continue neurochecks every 4 hours -PT/OT/speech and language pathologist following -Lipid profile unremarkable. Hyperlipidemia: Continue home Lipitor 40 mg p.o. at bedtime once reconciled Paroxysmal atrial fibrillation: Currently maintaining sinus mechanism. No longer on anticoagulation due to previous GI bleed. Continue aspirin 325 mg daily History of DVT and PE: No longer on anticoagulation due to previous GI bleed. Continue DVT prophylaxis with Lovenox 40 mg daily. Data and imaging reviewed: Morning labs reviewed. CBC showing stable normocytic anemia with hemoglobin of 11.8. BMP showing prerenal azotemia with BUN of 27 otherwise normal findings. Lipid profile unremarkable. Vital signs reviewed. Blood pressure 144/70, heart rate 95, respiratory rate 18, temp 97.8 F, and SpO2 of 99% on room air. CODE STATUS: Full code DVT prophylaxis: Lovenox Anticipated discharge date: Pending clinical course, likely 24 to [address]: Home Patient was seen independently by Nurse Pracitioner. This document was prepared using [facility] dictation software. Please allow for errors in software applications engineer, while rare they do occur. Marc Mayers NP rendered care for this patient independently, reviewed the findings and plan as documented in the note above and agree with plan. I did not physically speak with or examine the patient on this date. Objective - Vital Signs Vital signs: Vital Signs Temp 97.8 F 03/06/24 07:35 Pulse 95 03/06/24 08:04 Resp 18 03/06/24 08:04 BP 144/70 03/06/24 08:04 Pulse Ox 99 03/06/24 08:04 FiO2 Intake & Output 03/05/24 03/06/24 03/06/24 18:59 06:59 18:59 Weight 90.718 kg - Labs CBC & Chem 7: 03/06/24 07:07 03/06/24 07:07 Labs: Abnormal Lab Results - Last 24 Hours (Table) 03/05/24 03/05/24 03/05/24 Range/Units 18:54 18:54 19:50 Hgb 12.9 L (13.0-17.5) gm/dL Hct (39.0-53.0) % MCV 78.9 L (80.0-100.0) fL MCH 24.6 L (25.0-35.0) pg RDW 17.8 H (11.5-15.5) % Sodium (137-145) mmol/L BUN 26 H (9-20) mg/dL Urine Opiates Screen Detected H (NotDetected) 03/06/24 03/06/24 Range/Units 07:07 07:07 Hgb 11.8 L (13.0-17.5) gm/dL Hct 37.2 L (39.0-53.0) % MCV (80.0-100.0) fL MCH (25.0-35.0) pg RDW 17.7 H (11.5-15.5) % Sodium 136 L (137-145) mmol/L BUN 27 H (9-20) mg/dL Urine Opiates Screen (NotDetected)
[2024-03-06] MEDS ORDERED: LACTULOSE 20 GM/30 ML CUP PO PRN (14:48)
[2024-03-06] MEDS: polyethylene glycoL 3350 17 GM POWD.PACK PO SCH (15:13)
--- NOTE | 2024-03-06 18:20 | P.CNNES ---
History of Present Illness Consult date: 03/06/24 Requesting physician: Matty Martinez Reason for Consult: tia History of Present Illness: This is an 83 year-old gentleman who presents to the emergency department because of speech difficulty. He is accompanied with his . It seems the patient symptoms started yesterday around 5ish pm and patient was sitting reading the new paper and had difficulty reading, making out words. Then later seems that he had difficulty getting his words out when he was talking to his but he knew he wanted to say but he was not coming out right. His also felt he was slurring his speech. The episode lasted about an hour hour and a half. He denies any focal weakness, sensory loss any difficulty swallowing. He feels back to baseline. He stated that it seems that he had atrial fibrillation and was one-time and he was eval by his health club manager Dr. Pedro and had a Holter monitor and according to the patient was felt to A-fib was provoked. Patient was on Eliquis in the past and has a history of DVTs in bilateral lower extremity but had significant GI bleed therefore was discontinued and the patient is on aspirin. According to the he has a history of ulcer disease and unsure if the anticoagulation provoked a bleed but it was discontinued because it was significant GI bleed. Patient was on a Holter monitor for 10 days in the past and no A-fib or arrhythmia was noted flutter was noted according to the patient and his . His DVTs according to the patient he was notified by physician was due to COVID possibly. Some of the work-up during this hospital visit consisted of: Lipid panel:*58, cholesterol 168, LDL is 86 and HDL is 70. EKG sinus rhythm with sinus arrhythmia. CT head is unremarkable for acute or subacute stroke. I personally reviewed CT and agree with report. CTA head and neck is negative for large vessel occlusion or significant stenosis. Review of Systems As per HPI. Past Medical History Past Medical History: Cancer, Deep Vein Thrombosis (DVT), Hypertension, Pulmonary Embolus (PE) Additional Past Medical History / Comment(s): kidney stones, tonsillectomy, bladder cancer History of Any Multi-Drug Resistant Organisms: None Reported Past Surgical History: No Surgical Hx Reported Past Anesthesia/Blood Transfusion Reactions: No Reported Reaction Past Psychological History: No Psychological Hx Reported Smoking Status: Former smoker Past Alcohol Use History: Occasional Past Drug Use History: None Reported - Past Family History Father Family Medical History: Cancer Additional Family Medical History / Comment(s): colon cancer Brother(s) Family Medical History: Cancer Sister(s) Family Medical History: Cancer Medications and Allergies Home Medications Medication Instructions Recorded Confirmed Type Atorvastatin Calcium [Lipitor] 40 mg PO DAILY 11/11/21 03/05/24 History Pantoprazole Sodium [Protonix] 40 mg PO AC-BRKFST 01/01/22 03/05/24 History Aspirin EC [Ecotrin Low Dose] 81 mg PO DAILY 03/05/24 03/05/24 History Furosemide [Lasix] 20 mg PO DAILY 03/05/24 03/05/24 History Glucosam/Yoav-Msm1/C/Alan/Bosw 1 tab PO DAILY 03/05/24 03/05/24 History [Glucosamine-Chondroitin Tablet] HYDROcodone/APAP 5-325MG [Cotati 1 tab PO Q4HR PRN 03/05/24 03/05/24 History 5-325] metFORMIN HCL ER [Glucophage XR] 500 mg PO HS 03/05/24 03/05/24 History Allergies Allergy/AdvReac Type Severity Reaction Status Date / Time No Known Allergies Allergy Verified 03/05/24 20:34 Physical Examination - Vital Signs Vital Signs: Vital Signs Temp Pulse Resp BP Pulse Ox 03/06/24 11:32 73 20 164/79 98 03/06/24 10:37 68 18 151/98 98 03/06/24 08:04 95 18 144/70 99 03/06/24 07:35 97.8 F 03/06/24 07:19 77 21 145/74 99 03/06/24 06:30 68 18 128/68 96 03/06/24 03:58 74 18 117/65 96 03/05/24 21:52 93 18 145/74 99 03/05/24 20:32 85 18 168/82 99 03/05/24 19:55 83 18 162/78 97 03/05/24 18:24 97.8 F 84 16 179/96 98 Intake and Output 03/05/24 03/06/24 03/06/24 22:59 06:59 14:59 Other: Weight 90.718 kg GENERAL: The patient is lying in bed and is not in acute distress. NEUROLOGICAL: Higher mental function: The patient is awake, alert, oriented to self, place and time. Patient is following commands. No aphasia and no neglect. Cranial nerves: The pupils are round, equal and reactive to light and accommodation. Visual woodard are full to confrontation throughout. Extraocular movement is intact no nystagmus is noted. Facial sensation is normal to touch throughout. The facial strength is normal throughout. Hearing is normal bilaterally to hand rub. Tongue is midline and moved [id number] without any difficulty. No dysarthria is noted. Shoulder shrug is normal bilaterally. Motor: The strength is 5 over 5 throughout. Normal tone and bulk. Cerebellum: Normal finger to nose bilaterally. Sensation: Sensation is normal to touch throughout. Plantars are downgoing bilaterally. Results - Laboratory Findings CBC and BMP: 03/06/24 07:07 03/06/24 07:07 Abnormal Lab Findings: Abnormal Labs 03/05/24 03/05/24 03/05/24 18:54 18:54 19:50 Hgb 12.9 L Hct MCV 78.9 L MCH 24.6 L RDW 17.8 H Sodium BUN 26 H HDL Cholesterol Urine Opiates Screen Detected H 03/06/24 03/06/24 07:07 07:07 Hgb 11.8 L Hct 37.2 L MCV MCH RDW 17.7 H Sodium 136 L BUN 27 H HDL Cholesterol 70.00 H Urine Opiates Screen Assessment and Plan Assessment: This is a 83 y/o gentleman who presents because of expressive aphasia and some dysarthria. Symptoms has resolved. Transient ischemic attack (TIA). He had one time episode of atrial fibrillation and is not on anticoagulation because of GI bleed. History of A-fib and is on ASA and not anticoagulation since hx of GI Bleed. He was notified by his health club manager according to patient possible A-fib was provoked History of GI bleed. History of DVT in bilateral lower extremities. Plan: I ordered MRI Brain and will get rest of stroke work-up. Patient is on ASA 325mg daily. Speak with the primary team regarding switching aspirin to Plavix 75 mg daily and will avoid the dual antiplatelet because of increased risk for GI bleed. Recommend a loop recorder to detect if he continues to have A-fib. He had a Holter monitor for 10 days in the past and he follows up with Dr. Samman and I will defer the use of anticoagulation down the line to the primary team and health club manager. Will defer use of anticoagulation to primary team and cardiology team especially with hx of GI bleed. Consider IV filter. He is on Lipitor 40mg daily. Continue neuro checks. Cardiac monitoring PT, OT and MARKETING SALES CONSULTANT are consulted. Will defer the rest of medical management to primary team and other specialist. For DVT prophylaxis: On Lovenox. Plan discussed with the patient, his was at bedside. Thank you for the consultation. Time with Patient: Greater than 30
[2024-03-07 08:26] LABS: Anisocytosis Slight; HCT 40.7 % (39.0-53.0); HGB 12.7 gm/dL (13.0-17.5); Hypochromasia Marked; MCH 25.5 pg (25.0-35.0); MCHC 31.2 g/dL (31.0-37.0); MCV 81.7 fL (80.0-100.0); Mean Platelet Volume 7.8; Microcytosis Slight; Platelet Count 217 k/uL (150-450); RBC 4.98 m/uL (4.30-5.90); RDW 17.7 % (11.5-15.5)
[2024-03-07 08:42] LABS: African American GFR (CKD) 71 (>60 ml/min/1.73 sqM); Anion Gap 9 mmol/L; Blood Urea Nitrogen 27 mg/dL (9-20); Calcium 9.9 mg/dL (8.4-10.2); Carbon Dioxide 28 mmol/L (22-30); Chloride 102 mmol/L (98-107); Glucose 143 mg/dL (74-99); Non-African American GFR(CKD) 61 (>60 ml/min/1.73 sqM); Potassium 4.2 mmol/L (3.5-5.1); Sodium 139 mmol/L (137-145)
--- NOTE | 2024-03-07 10:37 | MR ---
EXAMINATION TYPE: MR brain wo con DATE OF EXAM: 03/07/2024 10:23 AM COMPARISON: 03/05/2024 09/23/2022. CLINICAL INDICATION: Male, 83 years old with history of stroke, aphasia, Aphasia, evaluate for stroke . TECHNIQUE: Multi planar, multi sequence imaging was performed through the brain including: T1, T2, In version recovery, Diffusion weighted imaging, and gradient echo imaging. No gadolinium was given. FINDINGS: The williamson-white junctions, ventricular system, basal cisterns appear unremarkable. Scattered foci of high T2 signal intensity are seen within the periventricular white matter. Midline structures show n o abnormality. Diffusion-weighted imaging shows no evidence of restricted diffusion. The susceptibili ty weighted images do not reveal any evidence for micro-hemorrhage. The bone marrow signal is within normal limits. Paranasal sinuses and mastoid air cells: No significant paranasal sinus disease. Visualized orbits: Orbital contents are intact. IMPRESSION: 1. No evidence of intracranial mass or acute/subacute infarct. 2. Nonspecific white matter changes, likely secondary to small vessel ischemic disease. [facility], , 03/07/2024 10:35 AM
--- NOTE | 2024-03-07 14:31 | P.PN ---
Subjective Progress Note Date: 03/07/24 Hospital course: Patient is a very pleasant 83-year-old male with a past medical history of hypertension, previous DVT and PE, paroxysmal atrial fibrillation previously on Eliquis (discontinued secondary to GI bleed and currently only on aspirin), and bladder cancer. He presented to the emergency department on 03/05/2024 with chief complaint of new onset difficulty with speech and reading. Upon arrival to our facility, patient underwent evaluation in the emergency department. Vital signs upon arrival show blood pressure 179/96, heart rate 84, respiratory rate 16, temp 97.8 F, and SpO2 of 98% on room air. EKG was completed showing sinus mechanism at 71 bpm with T wave inversion in lead III and no noted ST abnormality showing no signs of acute ischemia upon personal review and interpretation. CT brain was negative for acute intracranial process. CTA head was negative for acute intracranial process. CTA neck negative for any evidence of significant flow-limiting stenosis at carotid bifurcations, no evidence of dissection, and no evidence of high-grade stenosis or intracranial aneurysm reported. Chest x-ray negative for acute cardiopulmonary process. Labs completed and reviewed. CBC showing stable microcytic anemia with hemoglobin of 12.9. Coagulation profile normal findings. BMP showing prerenal azotemia with BUN of 26 otherwise normal findings. Blood glucose 90. Liver profile unremarkable. Troponin less than 0.012. Patient admitted under our services with consultation to neurology. Physical exam: Patient seen and fully evaluated at bedside this morning. He denies any further episodes of expressive aphasia or visual changes. Patient's family members at bedside. Patient was updated on MRI results and instructed of pending echocardiogram results. Discussed with patient possibility of loop recorder placement. Patient denies having any complaints at this time including he adache, lightheadedness, dizziness, chest pain, palpitations, shortness of breath, or experiencing any numbness/tingling/weakness/swelling in his extremities. Vital signs reviewed and stable. General: Nontoxic, no distress and appears stated age. Derm: Skin warm and dry, normal coloration for ethnicity. Head: Atraumatic, normocephalic and symmetric. Eyes: EOM's intact, no lid lag, and anicteric sclera Mouth: no lip lesions, mucus membranes moist Cardiovascular: regular rate and rhythm with normal S1S2, no murmur, positive posterior tibial pulses bilaterally, and cap refill < 2 seconds. Lungs: Respirations even, regular, and unlabored on room air. Lungs CTA bilaterally, no rhonchi, no rales, no wheezing, and no accessory muscle usage. Abdominal: soft, nontender to palpation, no guarding, no appreciable organomegaly Ext: No gross muscle atrophy, 1+ pitting bilateral lower extremity edema, no contractures. Movement and sensation equal, strong, and intact. Neuro: GCS 15. Speech clear, face symmetrical and CN II-XII grossly intact with no noted focal neuro deficits Psych: Alert and oriented to person, place, time, and situation. Appropriate and pleasant affect. Assessment and Plan of Care: 83-year-old male with PMH of hypertension, history of DVT and PE, atrial fibrillation (on aspirin at home) and history of bladder cancer presents with complaints of speech problems. Patient is admitted to the internal medicine service with a likely stay of less than 2 midnights. Transient aphasia and visual changes- now resolved, suspect TIA -Symptoms remain resolved -CT brain negative for acute intracranial process. -CTA head and neck negative. -MRI brain without contrast showing no evidence of intracranial mass or acute/subacute infarct showing nonspecific white matter changes likely secondary to small vessel ischemic disease. -Echocardiogram completed and currently pending report. -Discussed case in detail with neurologist and called patient's table tender sludge, Dr. Pedro, he is recommending consult to cardiology for loop recorder placement. -Aspirin discontinued by neurologist and patient placed on Plavix 75 mg daily. -Patient to remain on continuous telemetry monitoring and continue neurochecks every 4 hours -PT/OT/speech and language pathologist following -Lipid profile unremarkable. Hyperlipidemia: Continue home Lipitor 40 mg p.o. at bedtime once reconciled Paroxysmal atrial fibrillation: Currently maintaining sinus mechanism. No longer on anticoagulation due to previous GI bleed. Continue aspirin 325 mg daily History of DVT and PE: No longer on anticoagulation due to previous GI bleed. Continue DVT prophylaxis with Lovenox 40 mg daily. Data and imaging reviewed: Morning labs reviewed. CBC showing stable normocytic anemia with hemoglobin of 12.7. BMP showing prerenal azotemia with BUN of 27 otherwise normal findings. Blood glucose 143. Magnesium 2.0. Vital signs reviewed. Blood pressure 124/75, heart rate 88, respiratory rate 16, temp 97.4 F, and SpO2 of 98% on room air.. MRI brain without contrast showing no evidence of intracranial mass or acute/subacute infarct showing nonspecific white matter changes likely secondary to small vessel ischemic disease. CODE STATUS: Full code DVT prophylaxis: Lovenox Anticipated discharge date: Pending clinical course, likely 24 to [address]: Home Patient was seen independently by Nurse Pracitioner. This document was prepared using [employer] dictation software. Please allow for errors in janitor helper, while rare they do occur. Marc Mayers NP rendered care for this patient independently, reviewed the fi ndings and plan as documented in the note above and agree with plan. I did not physically speak with or examine the patient on this date. Objective - Vital Signs Vital signs: Vital Signs Temp 97.8 F 03/07/24 04:00 Pulse 67 03/07/24 04:00 Resp 16 03/07/24 04:00 BP 140/65 03/07/24 04:00 Pulse Ox 97 03/07/24 04:00 FiO2 Intake & Output 03/06/24 03/07/24 03/07/24 18:59 06:59 18:59 Intake Total 260 Balance 260 Weight 90.718 kg 89.3 kg Intake: IV 20 Invasive Line 1 20 Oral 240 Other: Voiding Method Toilet Toilet Urinal Urinal # Voids 1 - Labs CBC & Chem 7: 03/07/24 08:08 03/07/24 08:08 Labs: Abnormal Lab Results - Last 24 Hours (Table) 03/06/24 Range/Units 07:07 HDL Cholesterol 70.00 H (40.00-60.00) mg/dL
--- NOTE | 2024-03-07 15:48 | P.PN ---
Subjective Progress Note Date: 03/07/24 I am following up with the patient and he feels he is doing drastically better. Denies of any further neurological issues. I spoke with the patient's manager of organizational development, Dr. Pedro and stated that patient had atrial fibrillation once and was felt provoked due to the COVID. It seems that the patient has history of DVT as well as pulmonary embolism. He was on Eliquis for the DVT and pulmonary embolism but had GI bleed and it was discontinued and is on ASA and has IVC filter. Objective - Vital Signs Vital signs: Vital Signs Temp 97.4 F L 03/07/24 09:05 Pulse 74 03/07/24 14:00 Resp 16 03/07/24 14:00 BP 133/79 03/07/24 11:57 Pulse Ox 98 03/07/24 11:57 FiO2 Intake & Output 03/06/24 03/07/24 03/07/24 18:59 06:59 18:59 Intake Total 260 20 Balance 260 20 Weight 90.718 kg 89.3 kg Intake: IV 20 20 Invasive Line 1 20 20 Oral 240 Other: Voiding Method Toilet Toilet Toilet Urinal Urinal Urinal # Voids 1 - Exam GENERAL: The patient is sitting in a recliner chair and is not in acute distress. NEUROLOGICAL: Higher mental function: The patient is awake, alert, oriented to self, place and time. Patient is following commands. No aphasia and no neglect. Cranial nerves: The pupils are round, equal and reactive to light and accommodation. Visual woodard are full to confrontation throughout. Extraocular movement is intact no nystagmus is noted. Facial sensation is normal to touch throughout. The facial strength is normal throughout. Hearing is normal bilaterally to hand rub. Tongue is midline and moved [id number] without any difficulty. No dysarthria is noted. Shoulder shrug is normal bilaterally. Motor: The strength is 5 over 5 throughout. Normal tone and bulk. Cerebellum: Normal finger to nose bilaterally. Sensation: Sensation is normal to touch throughout. Plantars are downgoing bilaterally. Some of the work-up during this hospital visit consisted of: Lipid panel:TG is 58, cholesterol 168, LDL is 86 and HDL is 70. EKG sinus rhythm with sinus arrhythmia. CT head is unremarkable for acute or subacute stroke. I personally reviewed CT and agree with report. CTA head and neck is negative for large vessel occlusion or significant stenosis. MRI Brain: It is reported as no evidence of intracranial mass or acute/subacute infarct. I personally reviewed MRI and agree with report. - Labs CBC & Chem 7: 03/07/24 08:08 03/07/24 08:08 Labs: Abnormal Lab Results - Last 24 Hours (Table) 03/07/24 03/07/24 Range/Units 08:08 08:08 Hgb 12.7 L (13.0-17.5) gm/dL RDW 17.7 H (11.5-15.5) % BUN 27 H (9-20) mg/dL Glucose 143 H (74-99) mg/dL Assessment and Plan Assessment: This is a 83 y/o gentleman who presents because of expressive aphasia and some dysarthria. Symptoms has resolved. Transient ischemic attack (TIA). Factors is due to his age, hyperlipidemia and cannot rule out due to underlying atrial fibrillation History of A-fib and his manager of organizational development was felt it was provoked due to COVID. History of GI bleed. 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 Woods and that he was in agreement of stopping aspirin and changing it to Plavix 75 mg daily. Dual antiplatelet because of increased risk of a bleed especially with a history of GI bleed. Recommend loop recorder therefore will consult cardiology in house. Continue Lipitor 40 mg daily for secondary prophylaxis. Continue neurochecks Cardiac monitoring 2D echo is pending PT OT and TRANSFORMATION LEAD are consulted Will defer the rest of the medical management to primary and other specialist For DVT prophylaxis patient is on Lovenox Upon discharge recommend the patient to follow-up with a neurologist as an outpatient within 2 to 3 weeks The plan discussed with the patient, his was at bedside, primary team and patient's manager of organizational development Time with Patient: Less than 30
[2024-03-07] MEDS: LACTULOSE 20 GM/30 ML CUP PO ONE (15:50)
--- NOTE | 2024-03-07 17:12 | CA ---
Transthoracic Echo Report Name: Scooter Ureña Age: 83 Gender: M : 1940 Exam Date: 03/06/2024 10:57 Exam Location: [facility] Ht (in): 66 Wt (lb): 200 Ordering Physician: Matty Martniez DO Attending/Referring Phys: Cattle Sticker Negrita Wheeler RDCS Procedure CPT: Indications: Thrombus Cardiac Hx: Technical Quality: Technically difficult study Contrast 1: Definity Total Dose (mL): 2 Contrast 2: Total Dose (mL): MEASUREMENTS (Male / Female) Normal Values 2D ECHO LVOT Diameter 2.0 cm LV Diastolic Volume MOD BP 92.0 cm??? 67 - 155 / 56 - 104 cm??? LV Systolic Volume MOD BP 33.0 cm??? 22 - 58 / 19 - 49 cm??? LV Ejection Fraction MOD BP 64.1 % >= 55 % LV Cardiac Index MOD BP 1978.4 cm???/min???m??? LV Diastolic Volume MOD 4C 82.8 cm??? LV Systolic Volume MOD 4C 25.4 cm??? LV Ejection Fraction MOD 4C 69.3 % LV Cardiac Index MOD 4C 1922.7 cm???/min???m??? LV Diastolic Length 4C 8.1 cm LV Systolic Length 4C 6.0 cm LV Diastolic Volume MOD 2C 100.1 cm??? LV Systolic Volume MOD 2C 37.6 cm??? LV Ejection Fraction MOD 2C 62.4 % LV Cardiac Index MOD 2C 2095.5 cm???/min???m??? LV Diastolic Length 2C 7.9 cm LV Systolic Length 2C 6.9 cm LA Volume 65.8 cm??? 18 - 58 / 22 - 52 cm??? LA Volume Index 31.5 cm???/m??? 16 - 28 cm???/m??? DOPPLER AV Peak Velocity 168.7 cm/s AV Peak Gradient 11.4 mmHg AV Mean Velocity 107.5 cm/s AV Mean Gradient 5.5 mmHg AV Velocity Time Integral 32.7 cm LVOT Peak Velocity 121.6 cm/s LVOT Peak Gradient 5.9 mmHg LVOT Velocity Time Integral 24.3 cm LVOT Stroke Volume 80.2 cm??? LVOT Stroke Volume Index 40.1 ml/m??? LVOT Cardiac Index 2688.9 cm???/min???m??? AV Area Cont Eq vti 2.4 cm??? AV Area Cont Eq pk 2.4 cm??? MV Peak Velocity 202.5 cm/s MV Peak Gradient 16.4 mmHg MV Mean Velocity 131.3 cm/s MV Mean Gradient 7.5 mmHg MV Velocity Time Integral 49.5 cm MV Area PHT 2.3 cm??? Mitral E Point Velocity 135.2 cm/s Mitral A Point Velocity 163.7 cm/s Mitral E to A Ratio 0.8 MV Deceleration Time 333.9 ms PV Peak Velocity 89.7 cm/s PV Peak Gradient 3.2 mmHg FINDINGS Left Ventricle Left ventricular ejection fraction is estimated at 60 %. Left ventricular cavity size normal. Left ventricular wall thickness normal. No obvious regional wall motion abnormalities. Right Ventricle Right ventricle not well visualized. Unable to estimate the right ventricular systolic pressure. Right Atrium Right atrium not well visualized. Left Atrium Mildly increased left atrial volume. Mitral Valve Mitral valve thickened. Mitral annular calcification. No evidence for mitral valve prolapse. Moderate mitral stenosis. Mild mitral regurgitation. Aortic Valve Aortic valve not well visualized. No aortic valve stenosis or regurgitation. Tricuspid Valve Tricuspid valve not well visualized. No tricuspid prolapse. No tricuspid stenosis. No tricuspid regurgitation. Pulmonic Valve Pulmonic valve not well visualized. No pulmonic stenosis. No pulmonic regurgitation. Pericardium No pericardial effusion. Aorta Aortic annulus normal. CONCLUSIONS Technically difficult study. LVEF 60% No obvious regional wall motion abnormality Mild MR, degenerative calcification of mitral valve with moderate stenosis, mean gradient 7.5 mmHg at heart rate 79 bpm Previewed by: Dr Pierre Jarquin (Electronically Signed) Final Date: 07 March 2024 17:11
[2024-03-08 04:24] VITALS: RESP 16
[2024-03-08] MEDS: CLOPIDOGREL 75 MG TAB PO SCH (08:48)
--- NOTE | 2024-03-08 13:37 | P.PN ---
Subjective Progress Note Date: 03/08/24 Hospital course: Patient is a very pleasant 83-year-old male with a past medical history of hypertension, previous DVT and PE, paroxysmal atrial fibrillation previously on Eliquis (discontinued secondary to GI bleed and currently only on aspirin), and bladder cancer. He presented to the emergency department on 03/05/2024 with chief complaint of new onset difficulty with speech and reading. Upon arrival to our facility, patient underwent evaluation in the emergency department. Vital signs upon arrival show blood pressure 179/96, heart rate 84, respiratory rate 16, temp 97.8 F, and SpO2 of 98% on room air. EKG was completed showing sinus mechanism at 71 bpm with T wave inversion in lead III and no noted ST abnormality showing no signs of acute ischemia upon personal review and interpretation. CT brain was negative for acute intracranial process. CTA head was negative for acute intracranial process. CTA neck negative for any evidence of significant flow-limiting stenosis at carotid bifurcations, no evidence of dissection, and no evidence of high-grade stenosis or intracranial aneurysm reported. Chest x-ray negative for acute cardiopulmonary process. Labs completed and reviewed. CBC showing stable microcytic anemia with hemoglobin of 12.9. Coagulation profile normal findings. BMP showing prerenal azotemia with BUN of 26 otherwise normal findings. Blood glucose 90. Liver profile unremarkable. Troponin less than 0.012. Patient admitted under our services with consultation to neurology. Physical exam: Patient seen and fully evaluated at bedside this morning. He denies any further episodes of expressive aphasia or visual changes denies having any other complaints at this time. Discussed plan with patient and his via telephone that we are awaiting cardiology evaluate for possible loop recorder placement prior to discharge. Patient denies having any further questions, needs, or concerns at this time. Vital signs reviewed and stable. General: Nontoxic, no distress and appears stated age. Derm: Skin warm and dry, normal coloration for ethnicity. Head: Atraumatic, normocephalic and symmetric. Eyes: EOM's intact, no lid lag, and anicteric sclera Mouth: no lip lesions, mucus membranes moist Cardiovascular: regular rate and rhythm with normal S1S2, no murmur, positive posterior tibial pulses bilaterally, and cap refill < 2 seconds. Lungs: Respirations even, regular, and unlabored on room air. Lungs CTA bilaterally, no rhonchi, no rales, no wheezing, and no accessory muscle usage. Abdominal: soft, nontender to palpation, no guarding, no appreciable organom egaly Ext: No gross muscle atrophy, 1+ pitting bilateral lower extremity edema, no contractures. Movement and sensation equal, strong, and intact. Neuro: GCS 15. Speech clear, face symmetrical and CN II-XII grossly intact with no noted focal neuro deficits Psych: Alert and oriented to person, place, time, and situation. Appropriate and pleasant affect. Assessment and Plan of Care: 83-year-old male with PMH of hypertension, history of DVT and PE, atrial fibrillation (on aspirin at home) and history of bladder cancer presents with complaints of speech problems. Patient is admitted to the internal medicine service with a likely stay of less than 2 midnights. Transient aphasia and visual changes- now resolved, suspect TIA -Symptoms remain resolved -CT brain negative for acute intracranial process. -CTA head and neck negative. -MRI brain without contrast showing no evidence of intracranial mass or acut e/subacute infarct showing nonspecific white matter changes likely secondary to small vessel ischemic disease. -Echocardiogram revealing a preserved EF of 60% with mild mitral regurgitation. -Discussed case in detail with neurologist and he called patient's counseling center director, Dr. Pedro on 03/07/24, and he is recommending cardiology to evaluate for loop recorder placement prior to discharge. Discussed this with counseling center director on- call, Dr. Jc and awaiting recommendations. -Aspirin discontinued by neurologist and patient placed on Plavix 75 mg daily. -Patient to remain on continuous telemetry monitoring and continue neurochecks every 4 hours -PT/OT/speech and language pathologist following. -Lipid profile unremarkable. Hyperlipidemia: Continue home Lipitor 40 mg nightly. Lipid profile unremarkable. Paroxysmal atrial fibrillation: Currently maintaining sinus mechanism. No longer on anticoagulation due to previous GI bleed. Continue Plavix 75 mg daily. History of DVT and PE: No longer on anticoagulation due to previous GI bleed. Continue DVT prophylaxis with Lovenox 40 mg daily. Data and imaging reviewed: Morning labs reviewed. CBC showing stable normocytic anemia with hemoglobin of 12.7. BMP showing prerenal azotemia with BUN of 27 otherwise normal findings. Blood glucose 143. Magnesium 2.0. Vital signs reviewed. Blood pressure 102/65, heart rate 88, respiratory rate 16, temp 98.1 F, and SpO2 of 97% on room air. CODE STATUS: Full code DVT prophylaxis: Lovenox Anticipated discharge date: Pending clinical course, likely 24 to [address]: Home Patient was seen independently by Nurse Pracitioner. This document was prepared using [employer] dictation software. Please allow for errors in route service representative, while rare they do occur. Marc Mayers PLASTICS AND COMPOSITES INSPECTOR rendered care for this patient independently, reviewed the findings and plan as documented in the note above and agree with plan. I did not physically speak with or examine the patient on this date. Objective - Vital Signs Vital signs: Vital Signs Temp 98.2 F 03/08/24 04:00 Pulse 77 03/08/24 04:00 Resp 16 03/08/24 04:00 BP 128/70 03/08/24 04:00 Pulse Ox 98 03/08/24 04:00 FiO2 Intake & Output 03/07/24 03/08/24 03/08/24 18:59 06:59 18:59 Intake Total 20 500 Balance 20 500 Weight 89 kg Intake: IV 20 20 Invasive Line 1 20 20 Oral 480 Other: Voiding Method Toilet Toilet Urinal Urinal # Voids 2 2 - Labs CBC & Chem 7: 03/07/24 08:08 03/07/24 08:08 Labs: Abnormal Lab Results - Last 24 Hours (Table) 03/07/24 03/07/24 Range/Units 08:08 08:08 Hgb 12.7 L (13.0-17.5) gm/dL RDW 17.7 H (11.5-15.5) % BUN 27 H (9-20) mg/dL Glucose 143 H (74-99) mg/dL
[2024-03-08] MEDS: SODIUM CHLORIDE 0.9% 1,000 ML IV SCH (14:33)
--- NOTE | 2024-03-08 14:40 | P.CRDCN ---
History of Present Illness Consult date: 03/08/24 Reason for Consult (text): Evaluation for loop recorder History of present illness: This is a 83-year-old male patient of Dr. Pedro with past medical history of hypertension, dyslipidemia, paroxysmal atrial fibrillation maintaining sinus rhythm not on chronic anticoagulation, history of DVT with IVC filter, remote history of tobacco use. Regarding atrial fibrillation, this occurred in the setting of COVID and UTI with significant anemia. He also has recurrent bleeding ulcers and is not on anticoagulation. We have been asked to evaluate the patient for loop recorder. Patient presented to the hospital on 1118 with concern for difficulty with speech and reading. He has been diagnosed with TIA. Blood pressure 128/70, heart rate 77, pulse ox 98% on room air. -EKG: Sinus rhythm 71 bpm, no acute ST changes -Chest x-ray: No acute process -CT brain: No acute intracranial hemorrhage, midline shift or significant mass effect. -CTA head and neck: No evidence of dissection of the cervical internal carotid arteries or vertebral arteries. No limiting stenosis at the carotid bifurcations. No intracranial high-grade stenosis or intracranial aneurysm. -Echocardiogram reveals EF 60%. Mild MR, degenerative calcification of the mitral valve with moderate stenosis, mean gradient 7.5 mmHg at heart rate of 79. -MRI brain: No evidence of intracranial mass or acute/subacute infarct. Nonspecific white matter changes likely secondary to small vessel ischemic change. -Laboratory studies: Hemoglobin 12.7. BUN 27 creatinine 1.11, potassium 4.2. Cholesterol 168, triglycerides 58, Echocardiogram revealsLDL 86. -Home cardiac medications: Aspirin 81 mg daily, atorvastatin 40 mg daily, Lasix 20 mg daily. -Lexiscan Cardiolite stress test performed 11/24/2023 in the office revealed normal EF and normal study. -Event monitor performed 10/18 - 11/01/2023 revealed sinus rhythm with PVCs. Review Of Systems: At the time of my exam: CONSTITUTIONAL: Denies fever or chills. HEENT: Denies blurred vision, vision changes, or eye pain. Denies hemoptysis CARDIOVASCULAR: Denies chest pain. Denies orthopnea. Denies PND. Denies palpitations RESPIRATORY: Denies shortness of breath. GASTROINTESTINAL: Denies abdominal pain. Denies nausea or vomiting. HEMATOLOGIC: Denies bleeding disorders. GENITOURINARY: Denies any blood in urine. SKIN: Denies puritis. Denies rash. Physical examination: Gen: This is an 83-year-old male in no acute distress VS: reviewed HEENT: Head is atraumatic, normocephalic. Pupils equal, round. Sclerae is anicteric. NECK: Supple. No JVD. LUNGS: Clear to auscultation. No wheezes or rhonchi. No intercostal retractio ns. HEART: Regular rate and rhythm. 2/6 systolic ejection murmur. ABDOMEN: Soft No tenderness. EXTREMITIES: No pedal edema. No calf tenderness. NEUROLOGICAL: Patient is awake, alert and oriented x3. Assessment: TIA Hypertension Dyslipidemia Paroxysmal atrial fibrillation History of DVT with IVC filter Remote history of tobacco use Plan: Patient has been started on Plavix by neurology and aspirin discontinued Continue atorvastatin, Lasix Schedule patient for loop recorder implantation this afternoon with Dr. Jc After procedure, patient is cleared for discharge and may follow-up with Dr. Pedro in 2 to 3 weeks. Thank you kindly for this consultation. Nurse practitioner note has been reviewed, I agree with documented findings and plan of care. Patient was seen and examined. Past Medical History Past Medical History: Cancer, Deep Vein Thrombosis (DVT), Hypertension, Pulmonary Embolus (PE) Additional Past Medical History / Comment(s): kidney stones, tonsillectomy, bladder cancer History of Any Multi-Drug Resistant Organisms: None Reported Past Surgical History: No Surgical Hx Reported Past Anesthesia/Blood Transfusion Reactions: No Reported Reaction Past Psychological History: No Psychological Hx Reported Smoking Status: Former smoker Past Alcohol Use History: Occasional Past Drug Use History: None Reported - Past Family History Father History Unknown: Yes Family Medical History: Cancer Additional Family Medical History / Comment(s): colon cancer Brother(s) History Unknown: Yes Family Medical History: Cancer Sister(s) History Unknown: Yes Family Medical History: Cancer Medications and Allergies Home Medications Medication Instructions Recorded Confirmed Type Atorvastatin Calcium [Lipitor] 40 mg PO DAILY 11/11/21 03/05/24 History Pantoprazole Sodium [Protonix] 40 mg PO AC-BRKFST 01/01/22 03/05/24 History Aspirin EC [Ecotrin Low Dose] 81 mg PO DAILY 03/05/24 03/05/24 History Furosemide [Lasix] 20 mg PO DAILY 03/05/24 03/05/24 History Glucosam/Yoav-Msm1/C/Alan/Bosw 1 tab PO DAILY 03/05/24 03/05/24 History [Glucosamine-Chondroitin Tablet] HYDROcodone/APAP 5-325MG [Donalds 1 tab PO Q4HR PRN 03/05/24 03/05/24 History 5-325] metFORMIN HCL ER [Glucophage XR] 500 mg PO HS 03/05/24 03/05/24 History Allergies Allergy/AdvReac Type Severity Reaction Status Date / Time No Known Allergies Allergy Verified 03/05/24 20:34 Physical Exam Vitals: Vital Signs Temp Pulse Resp BP Pulse Ox 03/08/24 04:00 98.2 F 77 16 128/70 98 03/08/24 02:00 77 17 03/08/24 00:00 97.9 F 88 17 123/75 96 03/07/24 20:00 97.6 F 87 17 147/83 100 03/07/24 15:52 98.5 F 82 16 123/77 98 03/07/24 14:00 74 16 03/07/24 11:57 74 16 133/79 98 03/07/24 09:10 88 16 03/07/24 09:05 97.4 F L 88 16 124/75 98 Intake and Output 03/07/24 03/08/24 03/08/24 22:59 06:59 14:59 Intake Total 10 490 Balance 10 490 Intake: IV 10 10 Invasive Line 1 10 10 Oral 480 Other: Voiding Method Toilet Toilet Urinal Urinal # Voids 2 2 Weight 89 kg Results 03/07/24 08:08 03/07/24 08:08 CBC 03/07/24 Range/Units 08:08 WBC 9.0 (3.8-10.6) k/uL RBC 4.98 (4.30-5.90) m/uL Hgb 12.7 L (13.0-17.5) gm/dL Hct 40.7 (39.0-53.0) % Plt Count 217 (150-450) k/uL Comprehensive Metabolic Panel 03/07/24 Range/Units 08:08 Sodium 139 (137-145) mmol/L Potassium 4.2 (3.5-5.1) mmol/L Chloride 102 (98-107) mmol/L Carbon Dioxide 28 (22-30) mmol/L BUN 27 H (9-20) mg/dL Creatinine 1.11 (0.66-1.25) mg/dL Glucose 143 H (74-99) mg/dL Calcium 9.9 (8.4-10.2) mg/dL Current Medications Generic Name Dose Route Start Last Admin Trade Name Freq PRN Reason Stop Dose Admin Atorvastatin Calcium 40 mg 03/06/24 09:00 03/07/24 09:07 Atorvastatin 40 Mg Tab PO 40 mg DAILY JOSE Administration Clopidogrel Bisulfate 75 mg 03/08/24 09:00 Clopidogrel 75 Mg Tab PO DAILY JOSE Enoxaparin Sodium 40 mg 03/06/24 09:00 03/07/24 09:06 Enoxaparin 40 Mg/0.4 Ml Syringe SQ 40 mg DAILY JOSE Administration Furosemide 20 mg 03/06/24 09:00 03/07/24 09:07 Furosemide 20 Mg Tab PO 20 mg DAILY JOSE Administration Lactulose 30 gm 03/06/24 14:48 Lactulose 20 Gm/30 Ml Cup PO ONCE PRN Constipation Pantoprazole Sodium 40 mg 03/06/24 07:30 03/08/24 06:23 Pantoprazole 40 Mg Tablet PO 40 mg AC-BRKFST JOSE Administration Polyethylene Glycol 17 gm 03/06/24 15:00 03/07/24 09:07 Polyethylene Glycol 3350 17 Gm Powd.Pack PO 17 gm DAILY JOSE Administration Intake and Output 03/07/24 03/08/24 03/08/24 22:59 06:59 14:59 Intake Total 10 490 Balance 10 490 Intake: IV 10 10 Invasive Line 1 10 10 Oral 480 Other: Voiding Method Toilet Toilet Urinal Urinal # Voids 2 2 Weight 89 kg 03/07/24 08:08 03/07/24 08:08
--- NOTE | 2024-03-08 14:59 | P.PN ---
Subjective Progress Note Date: 03/08/24 I am following-up with patient and he states he continues to be doing well. No new neurological issues. Objective - Vital Signs Vital signs: Vital Signs Temp 98.1 F 03/08/24 08:39 Pulse 70 03/08/24 13:27 Resp 16 03/08/24 11:19 BP 130/80 03/08/24 11:19 Pulse Ox 97 03/08/24 11:19 FiO2 Intake & Output 03/07/24 03/08/24 03/08/24 18:59 06:59 18:59 Intake Total 20 500 118 Balance 20 500 118 Weight 89 kg Intake: IV 20 20 Invasive Line 1 20 20 Oral 480 118 Other: Voiding Method Toilet Toilet Toilet Urinal Urinal Urinal # Voids 2 2 1 - Exam GENERAL: The patient is sitting in a recliner chair and is not in acute distress. NEUROLOGICAL: Higher mental function: The patient is awake, alert, oriented to self, place and time. Patient is following commands. No aphasia and no neglect. Cranial nerves: The pupils are round, equal and reactive to light and accommodation. Visual woodard are full to confrontation throughout. Extraocular movement is intact no nystagmus is noted. Facial sensation is normal to touch throughout. The facial strength is normal throughout. Hearing is normal bilaterally to hand rub. Tongue is midline and moved [id number] without any difficulty. No dysarthria is noted. Shoulder shrug is normal bilaterally. Motor: The strength is 5 over 5 throughout. Normal tone and bulk. Cerebellum: Normal finger to nose bilaterally. Sensation: Sensation is normal to touch throughout. Plantars are downgoing bilaterally. Some of the work-up during this hospital visit consisted of: Lipid panel:TG is 58, cholesterol 168, LDL is 86 and HDL is 70. EKG sinus rhythm with sinus arrhythmia. CT head is unremarkable for acute or subacute stroke. I personally reviewed CT and agree with report. CTA head and neck is negative for large vessel occlusion or significant stenosis. MRI Brain: It is reported as no evidence of intracranial mass or acute/subacute infarct. I personally reviewed MRI and agree with report. - Labs CBC & Chem 7: 03/07/24 08:08 03/07/24 08:08 Assessment and Plan Assessment: This is a 83 y/o gentleman who presents because of expressive aphasia and some dysarthria. Symptoms has resolved. Transient ischemic attack (TIA). Factors is due to his age, hyperlipidemia and cannot rule out due to underlying atrial fibrillation History of A-fib and his adjunct professor of voice was felt it was provoked due to COVID. History of GI bleed. 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 Woods on 03/07/2024 and that he was in agreement of stopping aspirin and changing it to Plavix 75 mg daily. Will avoid dual antiplatelet because of increased risk of a bleed especially with a history of GI bleed. Recommend loop recorder therefore cardiology team is consulted. Continue Lipitor 40 mg daily for secondary prophylaxis. Continue neurochecks Cardiac monitoring 2D echo is pending PT OT and DESIGNER WRITER are consulted Will defer the rest of the medical management to primary and other specialist For DVT prophylaxis patient is on Lovenox Upon discharge recommend the patient to follow-up with a neurologist as an outpatient within 2 to 3 weeks The plan discussed with the patient, his and primary team. Time with Patient: Less than 30
--- NOTE | 2024-03-08 15:32 | P.DS ---
Providers Date of admission: 03/05/24 20:16 Expected date of discharge: 03/08/24 Attending physician: Hong Solitario MD Consults: 03/05/24 20:15 Consult Physician Routine Consulting Provider: Mitchel Back Consult Reason/Comments: tia Do you want consulting provider notified?: Yes 03/07/24 13:01 Consult Physician Routine Consulting Provider: Librado Jc Consult Reason/Comments: eval for loop recorder Do you want consulting provider notified?: Yes Primary care physician: Reynaldo Abarca [facility] Course: Discharge Diagnosis: TIA with Transient aphasia and visual changes. Patient discharged home on Plavix 75 mg daily in addition to low-dose aspirin 81 mg daily and atorvastatin 40 mg daily. Loop recorder was placed secondary to patient's history of atrial fibrillation, DVT, and previous PE and not on anticoagulation. Patient to follow-up outpatient with PCP, successfactors consultant, and neurologist. Hyperlipidemia: Continue home Lipitor 40 mg nightly. Lipid profile unremarkable. Paroxysmal atrial fibrillation: Currently maintaining sinus mechanism. No longer on anticoagulation due to previous GI bleed. Continue Plavix 75 mg daily. History of DVT and PE: No longer on anticoagulation due to previous GI bleed. Continue DVT prophylaxis with Lovenox 40 mg daily. Hospital course: Patient is a very pleasant 83-year-old male with a past medical history of hypertension, previous DVT and PE, paroxysmal atrial fibrillation previously on Eliquis (discontinued secondary to GI bleed and currently only on aspirin), and bladder cancer. He presented to the emergency department on 03/05/2024 with chief complaint of new onset difficulty with speech and reading. Upon arrival to our facility, patient underwent evaluation in the emergency department. Vital signs upon arrival show blood pressure 179/96, heart rate 84, respiratory rate 16, temp 97.8 F, and SpO2 of 98% on room air. EKG was completed showing sinus mechanism at 71 bpm with T wave inversion in lead III and no noted ST abnormality showing no signs of acute ischemia upon personal review and interpretation. CT brain was negative for acute intracranial process. CTA head was negative for acute intracranial process. CTA neck negative for any evidence of significant flow-limiting stenosis at carotid bifurcations, no evidence of dissection, and no evidence of high-grade stenosis or intracranial aneurysm reported. Chest x-ray negative for acute cardiopulmonary process. Labs completed and reviewed. CBC showing stable microcytic anemia with hemoglobin of 12.9. Coagulation profile normal findings. BMP showing prerenal azotemia with BUN of 26 otherwise normal findings. Blood glucose 90. Liver profile unremarkable. Troponin less than 0.012. Patient admitted under our services with consultation to neurology. MRI brain without contrast showing no evidence of intracranial mass or acute/subacute infarct showing nonspecific white matter changes likely secondary to small vessel ischemic disease. Echocardiogram revealing a preserved EF of 60% with mild mitral regurgitation. Discussed case in detail with neurologist and he called patient's successfactors consultant, Dr. Pedro on 03/07/24, and he recommended cardiology to evaluate for loop recorder placement prior to discharge. Loop recorded being placed and patient discharged home on Plavix 75 mg daily in addition to low-dose aspirin 81 mg daily and atorvastatin 40 mg daily. Loop recorder was placed secondary to patient's history of atrial fibrillation, DVT, and previous PE and not on anticoagulation secondary to previous GI bleed. Patient to follow-up outpatient with PCP, successfactors consultant, and neurologist. Physical exam: Vital signs reviewed and stable. General: Nontoxic, no distress and appears stated age. Derm: Skin warm and dry, normal coloration for ethnicity. Head: Atraumatic, normocephalic and symmetric. Eyes: EOM's intact, no lid lag, and anicteric sclera Mouth: no lip lesions, mucus membranes moist Cardiovascular: regular rate and rhythm with normal S1S2, no murmur, positive posterior tibial pulses bilaterally, and cap refill < 2 seconds. Lungs: Respirations even, regular, and unlabored on room air. Lungs CTA bilaterally, no rhonchi, no rales, no wheezing, and no accessory muscle usage. Abdominal: soft, nontender to palpation, no guarding, no appreciable organomegaly Ext: No gross muscle atrophy, 1+ pitting bilateral lower extremity edema, no contractures. Movement and sensation equal, strong, and intact. Neuro: GCS 15. Speech clear, face symmetrical and CN II-XII grossly intact with no noted focal neuro deficits Psych: Alert and oriented to person, place, time, and situation. Appropriate and pleasant affect. A total of 38 minutes of time were spent preparing this complex discharge summary. Pt was discharged on 03/08/2024 at 3:25 PM. Patient was seen independently by Nurse Practitioner. This document was prepared using [employer] dictation software. Please allow for errors in delivery truck driver heavy while rare they do occur. Marc Mayers NP rendered care for this patient independently, reviewed the findings and plan as documented in the note above. I did not physically speak with or examine the patient on this date. Patient Condition at Discharge: Stable Plan - Discharge Summary Discharge Rx Participant: No New Discharge Prescriptions: New Clopidogrel [Plavix] 75 mg PO DAILY 30 Days #30 tab Continue metFORMIN HCL ER [Glucophage XR] 500 mg PO HS HYDROcodone/APAP 5-325MG [[place] 5-325] 1 tab PO Q4HR PRN PRN Reason: Pain Glucosam/Yoav-Msm1/C/Alan/Bosw [Glucosamine-Chondroitin Tablet] 1 tab PO DAILY Atorvastatin Calcium [Lipitor] 40 mg PO DAILY Pantoprazole Sodium [Protonix] 40 mg PO [facility] Aspirin EC [Ecotrin Low Dose] 81 mg PO DAILY Furosemide [Lasix] 20 mg PO DAILY Discharge Medication List Atorvastatin Calcium [Lipitor] 40 mg PO DAILY 11/11/21 [History] Pantoprazole Sodium [Protonix] 40 mg PO AC-[facility] 01/01/22 [History] Aspirin EC [Ecotrin Low Dose] 81 mg PO DAILY 03/05/24 [History] Furosemide [Lasix] 20 mg PO DAILY 03/05/24 [History] Glucosam/Yoav-Msm1/C/Alan/Bosw [Glucosamine-Chondroitin Tablet] 1 tab PO DAILY 03/05/24 [History] HYDROcodone/APAP 5-325MG [[place] 5-325] 1 tab PO Q4HR PRN 03/05/24 [History] metFORMIN HCL ER [Glucophage XR] 500 mg PO HS 03/05/24 [History] Clopidogrel [Plavix] 75 mg PO DAILY 30 Days #30 tab 03/08/24 [Rx] Follow up Appointment(s)/Referral(s): Rosy Pedro MD [STAFF PHYSICIAN] - 3 Weeks Jessica Cam MD [REFERRING] - 2 Weeks Ephraim Valdovinos PAC [REFERRING] - 1-2 days Patient Instructions/Handouts: Transient Ischemic Attack (DC), Cardiac Loop Recorder Insertion (DC) Activity/Diet/Wound Care/Special Instructions: Activity: As tolerated. Take breaks as needed. Diet: Heart healthy and carb consistent diet. Avoid salts, or foods with hidden salts such as canned or boxed foods and frozen dinners. Extra salt makes your heart work harder and traps the fluid in your body for longer. Special Instructions: Take all of your medications as directed and remember to keep all of your doctor's appointments and follow-up as needed. Thank you for allowing us to participate in your care, it was truly a pleasure having you for our patient!!! Discharge Disposition: HOME SELF-CARE
[2024-03-08 16:37] VITALS: BP 131/81; PULSE 69; TEMP 97.8
--- NOTE | 2024-03-08 17:50 | P.PCN ---
Description of Procedure: Procedure: Insertion of Linq loop recorder Indication: CVA CONSENT:I have discussed the risks, benefits and alternative therapies for the above-mentioned procedure. The patient has indicated understanding and acceptance of the risks and procedures discussed. PROCEDURE: Patient was brought to the catheterization lab in a fasting state. Patient was prepped and draped in the usual fashion. 1% lidocaine was used to anesthetize the area of the left third intercostal space. Using the loop recorder incision device, a small 0.5 cm incision was made in the left 3rd intercostal space. Next the Linq loop recorder was deployed in the 3rd intercostal space subcutaneously using the insertion tool. Thresholds were checked and were adequate. Next the incision was closed using Dermabond. Steristrips were placed over the incision and the procedure was completed. The patient tolerated the procedure well. The patient was transported to the post cath holding area in stable condition. Linq loop recorder serial number: [id number]
== END 2024-03-08 18:34 | disposition home or self-care (01) ==
LOC: EC 18:17 → 3SCARD 20:16
PROVIDERS: ADMIT Internal Medicine; ATTEND Internal Medicine
DX: G45.9 Transient cerebral ischemic attack, unspecified (principal); I48.0 Paroxysmal atrial fibrillation; Z86.711 Personal history of pulmonary embolism; Z86.718 Personal history of other venous thrombosis and embolism; I10 Essential (primary) hypertension; E78.5 Hyperlipidemia, unspecified; D50.9 Iron deficiency anemia, unspecified; R79.89 Other specified abnormal findings of blood chemistry; Z85.51 Personal history of malignant neoplasm of bladder; Z79.82 Long term (current) use of aspirin; Z87.891 Personal history of nicotine dependence; Z79.899 Other long term (current) drug therapy; Z79.84 Long term (current) use of oral hypoglycemic drugs; Z80.0 Family history of malignant neoplasm of digestive organs
CPT/HCPCS: 33285; 96372 ×3; 99291; 36415; 93005; 93306; 97161; 97165; 80061; 80053; 80048 ×2; 83735; 84484; 85025; 85027 ×2; 85610; 85730; 80306; 71046; 70496; 70450; 70498; 70551; G0378 ×4; J1650 ×3; Q9957; Q9967